=== PATIENT | female | born 1945 | race Caucasian/White ===

== ENCOUNTER 2019-11-15 12:37 | Outpatient (CLI) | payer MEDICARE, SELFPAY ==
[2019-11-15 13:17] LABS: Basophils # 0.1 10^3/uL (0.0-0.1); Basophils % 0.8 %; Eosinophils # 0.1 10^3/uL (0.0-0.8); Eosinophils % 1.7 %; Hematocrit 34.4 % (37.0-47.0); Hemoglobin 11.2 g/dL (11.5-15.3); Lymphocytes # 1.7 10^3/uL (0.8-4.8); Lymphocytes % 23.3 %; Mean Corpuscular HGB Conc 32.6 g/dL (30.0-36.0); Mean Corpuscular Hemoglobin 32.6 pg (28.0-34.0); Mean Platelet Volume 10.1 fL (7.4-10.4); Monocytes # 0.9 10^3/uL (0.2-0.9); Monocytes % 12.2 %; Neutrophils # 4.5 10^3/uL (1.8-7.7); Neutrophils % 61.6 %; Nucleated Red Blood Cells % 0 %; Platelet Count 352 10^3/cmm (130-400); Red Blood Count 3.44 10^6/uL (4.1-5.3); Red Cell Distribution Width 14.9 % (12.1-15.1); White Blood Count 7.2 10^3/uL (4.0-10.0)
[2019-11-15 13:21] LABS: Alanine Aminotransferase 14 U/L (0-33); Albumin Level 4.4 g/dL (3.5-5.2); Alkaline Phosphatase 69 IU/L (35-105); Anion Gap 13.8 (5-19); Aspartate Amino Transferase 20 U/L (0-32); Blood Urea Nitrogen 21 mg/dL (8-23); Calcium 9.2 mg/dL (8.5-10.5); Carbon Dioxide 24 mmol/L (22-29); Chloride 106 mmol/L (98-107); Globulin 2.8 g/dL (1.3-4.6); Glucose 104 mg/dL (65-115); Potassium 3.8 mmol/L (3.5-5.1); Sodium 140 mmol/L (136-145); Total Bilirubin 0.4 mg/dL (0.15-1.2); Total Protein 7.2 g/dL (6.6-8.7)
== END 2019-11-15 12:38 | disposition home or self-care (01) ==
LOC: ONCMED 12:41
PROVIDERS: Family Provider Family Medicine; PCP Family Medicine; Visit Provider Nurse Practitioner
DX: C50.311 Malignant neoplasm of lower-inner quadrant of right female breast (principal)
CPT/HCPCS: 80053; 85025

== ENCOUNTER 2019-11-16 08:48 | Outpatient (CLI) | payer MEDICARE, SELFPAY ==
--- NOTE | 2019-11-16 13:34 | ONC FU_ITS ---
Dr. Mcconnell follow up note Patient: Yessenia George Unit #: [id number]: 1945 Dicatated By: Luc Mcconnell M.D.Date of Visit:Nov 16, 2019 Onc Med Follow-up/Prog Note History of Present Illness: This is a 73 year old woman with multicentric, moderately differentiated invasive ductal carcinoma of the right breast, clinical stage IIA (T1c, N1, M0), ER/LA positive and HER-2/racheal negative. She presented with a palpable nodule and significant changes in the inner lower quadrant of the right breast. Her mammogram on 02/16/2014 showed the right breast asymmetry corresponding to 1.1 cm mass on ultrasound. The patient has been evaluated by Dr. Renteria in [place], [place]. Ultrasound-guided needle core biopsy on 03/25/2014 revealed an invasive moderately differentiated ductal carcinoma into breast nodule as well as involvement of the right axillary lymph node with metastatic disease. The prognostic markers revealed ER 98%, LA 11%, HER-2/racheal 0 by IHC, Ki 67 index 14%. She was first seen here on 04/11/2114. PET/CT on 04/16/2014 showed a low grade FDG uptake in the right breast, without distant metastatic disease. MRI of the brain was negative for metastatic disease. MUGA scan showed EF 59.5%, she had mild hypokinesia in the apical septal segment. She was recommended to get neoadjuvant chemotherapy. Systemic treatment with dose dense adriamycin and cyclophosphamide was delivered from 04/20/2014- 06/08/14. She then received paclitaxel 06/22/2014 -09/14/2014. On 10/10/14 she underwent a right lumpectomy and right axillary lymph node dissection. The surgical pathology showed 2.1 cm single focus great to/3 invasive ductal carcinoma with positive margins. All 4 lymph nodes harvested were involved with metastatic carcinoma. Thus, pathologic stage increased to IIIA, ypT2 ypN2 M0. HER-2/racheal by FISH negative. On 10/31/2014 she underwent a resection. No further tumor was identified. Arimidex 1 mg was initiated in October 2014. She completed 6040 cGy of radiation treatment on 01/13/2015. Mammogram on 03/25/2015 with a BI-RADS 3C, followup of right breast mammogram was recommended in 6 months. Follow-up mammogram in 03/08/2016 with BI-RADS 2b. She underwent colonoscopy in 01/02/2016 without evidence of malignancy. She has degenerative arthritis and fibromyalgia with chronic back pain. Her DEXA scan in November 2014 showed just borderline osteopenia. Her other medical illnesses include GERD and depression. She had previously smoked for 35 years, but she quit smoking more than 25 years ago. h/o lump on the right side of her neck . CT scan of the neck done on 04/04/2017 showed no abnormality and the palpable marker corresponds to normal-appearing right sternocleidomastoid muscle no lymphadenopathy and MRI neck at done on 01/02/2007 showed no solid or cystic mass and no lymphadenopathy and cervical spine degenerative changes seen in C4 - 5, 5 - 6, 6 - 7. Came for follow-up, denies any specific complaints, no fever or chills, no nausea or vomiting, no new bony pains, appetite is good, weight is stable, patient completed 5 years of hormonal therapy in mid October 2019. Medications: 8 Hour Pain Relief 1 Tablet (of 650 mg) Tablet, controlled release Oral PRN, Calcium Tablet Oral daily, PROzac 1 (40 mg) Capsule Oral daily, Ranitidine HCl 1 (150 mg) Capsule Oral b.i.d. Allergies: Iodine dye Review of Systems: Constitutional - Her energy level is fair. Appetite is good and weight is stable. No fever, chills. She has hot flashes, ENMT - Positive for sinus drainage. No mouth sores. No sore throat or difficulty swallowing, Hematologic/Lymphatic - No abnormal bruising or bleeding, Respiratory - She has shortness of breath with activity. She has a dry cough. No pleuritic pain, Cardiovascular - No angina pain, Gastrointestinal - No nausea or vomiting. No heartburn or acid reflux. No diarrhea or constipation. No blood in the stool or black stools, Genitourinary (F) - No dysuria or hematuria. No urinary frequency. No urgency or incontinence, Musculoskeletal - She has generalized pain, Neurologic - She has headaches. No dizziness. She has numbness and tingling in her toes, Psychiatric - No anxiety or depression. She has insomnia. Vital Signs: Performed on Nov 16, 2019 09:28 Height - 61.00 in Weight - 140.2 lbs (HIGH) BSA - 1.62 sq.m BMI - 26.49 Temperature - 97.2 F (LOW) Pulse - 71 /min Respiration - 18 /min BP - 121/64 mm(hg) O2 Sat - 99 % Pain - 7 Performance Status: 0 - Fully active, able to carry on all predisease activities without restrictions. (ECOG) Physical Examination: Respiratory - Lungs are clear to auscultation without rhonchi or wheezing, Cardiovascular - Regular rate and rhythm of heart, Extremities - no edema. Lab/Imaging: Test performed on Jun 10, 2019 10:20 Sodium 143 mmol/L Potassium 4.0 mmol/L Chloride 107 mmol/L CO2 24 mmol/L Anion Gap 16.0 BUN 20 mg/dL Creatinine 1.0 mg/dL Cr Clearance (Est) 51.1100 mL/min Glucose 110 mg/dl Calcium 9.0 mg/dL Protein, Total 6.9 g/dL Albumin 4.2 g/dL Globulin 2.7 gm/dL Bilirubin, Total 0.4 mg/dL ALT (SGPT) 13 U/L AST (SGOT) 19 U/L Alkaline Phosphatase 66 U/L WBC 7.7 /cmm RBC 3.69 10 6/cmm HGB 12.3 g/dl HCT 36.7 % MCV 99.4 /cmm MCH 33.4 pg MCHC 33.6 g/dl RDW 14.9 % Platelet Count 333 10 3/cmm MPV 7.9 fl Neutrophils 5.4 10 3/cmm Lymphocytes 1.2 10 3/cmm Monocytes 0.9 10 3/cmm Eosinophils 0.1 10 3/cmm Basophils 0.1 10 3/cmm Neutrophil % 70.6 % Lymphocyte % 15.4 % Monocyte % 11.4 % Eosinophil % 1.9 % Basophils % 0.7 % CA 27.29 24.35 U/mL Impression: 1. Patient with grade 2 invasive ductal carcinoma of the right breast, stage IIIA (ypT2, ypN2, M0), ER/LA positive and HER-2/racheal nonamplified. 2. She was given neoadjuvant chemotherapy with 4 cycles of Adriamycin/cyclophosphamide followed by 12 doses of weekly paclitaxel, completed in September 2014. 3. She underwent right breast lumpectomy and axillary lymph node dissection on 10/10/2014. 4. She was given radiation to the right breast, completed on 01/13/2015 to a total dose of 6040 cGy. 5. Adjuvant hormonal therapy with anastrozole began in October 2014.and completed 5 years, in October 2019 Her other medical illnesses include: 6. Degenerative arthritis/degenerative disease of the spine. 7. Fibromyalgia. 8. GERD. 9. Depression. h/o lump in the right side of her neck. Normal CT scan of the neck done on 11/04/2016 and confirmed normal findings with MRI neck done on 01/02/2017 Mammogram done on 05/11/2018 showed BI-RADS 2-benign Follow-up mammogram done on 06/10/2019 showed BI-RADS 2-benign Plan: Discussed with patient regarding her labs white blood count 7.2 hemoglobin 11.2 crit 34.4 platelets 352,000 CMP within normal limits and her mammogram done in June 2019 was unremarkable. Clinically, patient doing well with no signs symptoms suggestive of recurrence of disease. Patient has completed 5 years of adjuvant hormonal therapy with Arimidex in mid October 2019. Now consider yearly follow-up and patient return to clinic in one year with CBC CMP and follow-up mammogram which is scheduled in June 2020. Signed By: Luc Mcconnell M.D. <<Signature on File>>
== END 2019-11-16 08:49 | disposition home or self-care (01) ==
LOC: ONCMED 08:50
PROVIDERS: Family Provider Family Medicine; PCP Family Medicine; Visit Provider Internal Medicine Hematology & Oncology
DX: Z08 Encounter for follow-up examination after completed treatment for malignant neoplasm (principal); Z85.3 Personal history of malignant neoplasm of breast; M19.90 Unspecified osteoarthritis, unspecified site; M79.7 Fibromyalgia; G89.29 Other chronic pain; K21.9 Gastro-esophageal reflux disease without esophagitis; F32.9 Major depressive disorder, single episode, unspecified; Z79.899 Other long term (current) drug therapy; Z87.891 Personal history of nicotine dependence; Z92.3 Personal history of irradiation; Z92.21 Personal history of antineoplastic chemotherapy; Z92.23 Personal history of estrogen therapy
CPT/HCPCS: 99214

== ENCOUNTER 2020-06-13 09:55 | Outpatient (CLI) | payer MEDICARE, SELFPAY ==
--- NOTE | 2020-06-13 10:02 | MM_ITS ---
WS: [id number] DIAGNOSTIC BILATERAL DIGITAL MAMMOGRAM WITH CAD HISTORY: HX OF BREAST CA COMPARISON: 06/10/2019, 05/11/2018 and 11/06/2017 TECHNIQUE: Bilateral craniocaudad, mediolateral oblique, and mediolateral views are submitted. Comput er aided detection utilized. Breast composition: There are scattered areas of fibroglandular density. Postsurgical changes with vo lume loss and scarring in the RIGHT breast. No recurrent mass near the surgical clips. There are dotty gn calcifications in each breast. MM/[place] [id number] IMPRESSION: BI-RADS: 2-Benign FOLLOW UP: 1 Year Follow-up
== END 2020-06-13 09:56 | disposition home or self-care (01) ==
LOC: RADSHAW 10:00 → ONCMED 10:03
PROVIDERS: PCP Family Medicine; Visit Provider Internal Medicine Hematology & Oncology
DX: Z85.3 Personal history of malignant neoplasm of breast (principal)
CPT/HCPCS: 77066

== ENCOUNTER → 2020-07-14 12:18 | Outpatient (BNVA) | payer MEDICARE, SELFPAY | PROVIDERS: PCP Family Medicine; Visit Provider Internal Medicine | DX: M25.50 Pain in unspecified joint (principal); R76.8 Other specified abnormal immunological findings in serum; D86.9 Sarcoidosis, unspecified; Z51.81 Encounter for therapeutic drug level monitoring; C50.919 Malignant neoplasm of unspecified site of unspecified female breast; D64.9 Anemia, unspecified; Z87.891 Personal history of nicotine dependence | CPT/HCPCS: 99203; 99204 ==

== ENCOUNTER 2020-07-14 13:17 | Outpatient (CLI) | payer MEDICARE, SELFPAY ==
--- NOTE | 2020-07-14 13:24 | XR_ITS ---
WS: [id number] Left hand, AP and lateral views, 07/14/2020 Clinical Data: hand pain Comparison: None. Findings: No fractures are seen. There is osteoarthritic change of the left second through fifth MP joints. The re is osteoarthritic change at the base of the left first metacarpal. There is calcification of the t riradiate cartilage. The patient's ring obscures minimal detail over the left fourth proximal phalanx . The soft tissues show minimal calcification on the radial base of the left third proximal phalanx.. XR/XR hand LT 2V [id number] Impression: 1. Osteoarthritis of the left second through fifth MTP joints and base of the l eft first metacarpal. 2. Calcification of the triradiate cartilage.
--- NOTE | 2020-07-14 13:24 | XR_ITS ---
WS: [id number] Right hand, AP and lateral views, 07/14/2020 Clinical Data: hand pain Comparison: None. Findings: No fractures or dislocations are seen. The soft tissues are unremarkable. Osteoarthritic changes seen at the right first through third MTP joints, right first IP joint and right second and t hird DIP joints. There is osteoarthritis at the base of the right first metacarpal and at the scaphoi d and carpal articulations. There is calcification of the triradiate cartilage. The patient's ring ob scured minimal detail over the midportion of the right fourth proximal phalanx. XR/XR hand RT 2V [id number] Impression: 1. Osteoarthritic change at the base of the right first metacarpal and of the f irst, second and third phalanges. 2. Calcification of the triradiate cartilage
--- NOTE | 2020-07-14 13:24 | XR_ITS ---
WS: [id number] Lateral views of cervical spine in the flexion, extension and neutral positions. 07/14/2020 Clinical Data: neck pain ? stenosis Comparison: None. Findings: There is a subluxation of 0.3 cm at C3 on C4. The subluxation increases to 0.5 cm on flexion and does not change on extension. No limitation of motion is seen on flexion or extension. There is degenerat michelle disc disease at all levels from C4-C5 through C6-C7. Anterior osteoarthritic spurring is seen ant eriorly from C4 through C6. No prevertebral soft tissue swelling is present. No compression fracture s are seen. XR/XR cervical spine fl/ex [id number] Impression: 1. Subluxation of 0.3 cm of C3 on C4 in the neutral position which increases to 0.5 cm on flexion. 2. Negative for limitation of motion on flexion or extension. 3. Degenerative disc disease and osteoarthritis from C3-C4 through C6-C7.
--- NOTE | 2020-07-14 13:24 | XR_ITS ---
WS: [id number] Lumbar spine, 3 views, 07/14/2020 Clinical Data: back pain Comparison: None. Findings: No compression fractures are seen. There is a 0.9 cm subluxation of L5 on S1. Degenerative disc narro wing is present at L1-L2 through L5-S1. There is a slight levoscoliosis. Osteoporosis is present. The transverse processes, SI joints and pub ic symphysis are unremarkable. There is osteoarthritic spurring especially of L2, L4 and L5. XR/XR lumbar spine 2-3V* [id number] Impression: 1. Osteoporosis and osteoarthritis. 2. Multilevel degenerative disc disease. 3. Subluxation of L5 on S1 of 0.9 cm.
[2020-07-14 14:24] LABS: Add Urine Microscopic? NO
[2020-07-14 14:37] LABS: Creatine Phosphokinase 85 U/L (26-192); Ferritin 331 ng/mL (15-150)
[2020-07-14 14:43] LABS: Complement C3 93 mg/dL (90-180)
[2020-07-14 14:50] LABS: Bilirubin Urine Neg (Negative); Blood Urine Neg (Negative); Glucose Urine UA Norm (Normal); Ketones Urine Negative (Negative); Leukocyte Esterase Urine Negative (Negative); Nitrate Urine Negative (Negative); Protein Urine Neg (Negative); Specific Gravity, Urine 1.015 (1.005-1.030); Urine Appearance Clear (CLEAR); Urine Color Yellow (Yellow); Urobilinogen Urine Neg (Negative); pH Urine 5 (5-7)
[2020-07-14 15:36] LABS: Erythrocyte Sedimentation Rate 10 mm/hr (0-15)
[2020-07-14 15:45] LABS: Hepatitis B Core AB, Total Non-Reactive (Nonreactive); Hepatitis B Surface Antigen Non-Reactive (Nonreactive); Hepatitis C Virus Antibody Non-Reactive (Nonreactive)
[2020-07-16 20:11] LABS: HLA-B27 POSITIVE (NEGATIVE)
[2020-07-17 13:28] LABS: COMPLEMENT COMPONENT C3C 101 mg/dL (83-193); COMPLEMENT COMPONENT C4C 17 mg/dL (15-57)
[2020-07-17 14:23] LABS: CENTROMERE B ANTIBODY <1.0 NEG AI (<1.0 NEG); JO-1 ANTIBODY <1.0 NEG AI (<1.0 NEG); RNP ANTIBODY <1.0 NEG AI (<1.0 NEG); SCL-70 ANTIBODY <1.0 NEG AI (<1.0 NEG); SJOGREN'S ANTIBODY (SS-A) <1.0 NEG AI (<1.0 NEG); SM ANTIBODY <1.0 NEG AI (<1.0 NEG)
[2020-07-17 15:58] LABS: COMPLEMENT, TOTAL (CH50) 55 U/mL (31-60); THYROID PEROXIDASE ANTIBODIES <1 IU/mL (<9)
[2020-07-19 05:32] LABS: DNA AB (DS) CRITHIDIA,IFA NEGATIVE (NEGATIVE)
[2020-07-19 10:32] LABS: ANA PATTERN Nuclear, Homogeneous; ANA SCREEN, IFA POSITIVE (NEGATIVE); ANA TITER 1:40 titer
== END 2020-07-14 13:18 | disposition home or self-care (01) ==
LOC: RAD 13:22
PROVIDERS: PCP Family Medicine; Visit Provider Internal Medicine
DX: R76.8 Other specified abnormal immunological findings in serum (principal); D86.9 Sarcoidosis, unspecified; M50.31 Other cervical disc degeneration, high cervical region; M47.812 Spondylosis without myelopathy or radiculopathy, cervical region; M81.0 Age-related osteoporosis without current pathological fracture; Z51.81 Encounter for therapeutic drug level monitoring; S33.39XA Dislocation of other parts of lumbar spine and pelvis, initial encounter; M19.042 Primary osteoarthritis, left hand; M19.041 Primary osteoarthritis, right hand; X58.XXXA Exposure to other specified factors, initial encounter
CPT/HCPCS: 36415; 72040; 72100; 73120; 81003; 82550; 82728; 85651; 86160; 86431; 86704; 86803; 86812; 87340

== ENCOUNTER → 2020-08-01 13:22 | Outpatient (BNVA) | payer MEDICARE, SELFPAY | PROVIDERS: PCP Family Medicine; Referring Provider Internal Medicine; Visit Provider Anesthesiology Pain Medicine | DX: M48.061 Spinal stenosis, lumbar region without neurogenic claudication (principal); M51.36 Other intervertebral disc degeneration, lumbar region; M47.816 Spondylosis without myelopathy or radiculopathy, lumbar region; M50.90 Cervical disc disorder, unspecified, unspecified cervical region; M54.9 Dorsalgia, unspecified; M05.9 Rheumatoid arthritis with rheumatoid factor, unspecified; R76.8 Other specified abnormal immunological findings in serum; M41.9 Scoliosis, unspecified; Z98.890 Other specified postprocedural states; Z15.89 Genetic susceptibility to other disease | CPT/HCPCS: 99205 ==

== ENCOUNTER → 2020-08-11 12:25 | Outpatient (BNVA) | payer MEDICARE, SELFPAY | PROVIDERS: PCP Family Medicine; Visit Provider Anesthesiology Pain Medicine | DX: M47.816 Spondylosis without myelopathy or radiculopathy, lumbar region (principal); M54.9 Dorsalgia, unspecified | CPT/HCPCS: 64493; 64494; 64495; J3490 ==

== ENCOUNTER 2020-08-15 13:28 | Outpatient (CLI) | payer MEDICARE, SELFPAY ==
--- NOTE | 2020-08-15 13:53 | MR_ITS ---
WS: [id number] MRI CERVICAL SPINE NONCONTRAST TECHNIQUE: Sagittal T1, T2 and STIR imaging. Axial T2, gradient, and fiesta imaging. CLINICAL INFORMATION: M54.12 Radiculopathy, cervical region COMPARISON: None. FINDINGS: Straightening of the normal cervical lordosis. Slight anterolisthesis C3 on C4. Disc osteophyte compl exes worse at C4-C5 and C5-C6. Cord signal is normal. C2-C3: Mild left and no significant right foraminal narrowing. Mild facet arthropathy. Spinal canal i s patent. C3-C4: Slight anterolisthesis. Mild disc bulging with osteophytic ridging. Mild to moderate left and no significant right foraminal narrowing. Moderate left facet arthropathy. Spinal canal is patent. C4-C5: Disc osteophyte complex with mild central canal stenosis. Moderate to severe bilateral bony fo raminal narrowing. Mild facet arthropathy. Mild central canal stenosis. C5-C6: Disc osteophyte complex with mild to moderate central canal stenosis. Severe right and moderat e left bony foraminal narrowing with osteophytic ridging. Moderate facet arthropathy. C6-C7: Disc osteophyte complex with mild left greater than right foraminal narrowing. Spinal canal is patent. C7-T1: Mild left and no significant right foraminal narrowing. Spinal canal is patent Visualized brain stem structures: Normal. Prevertebral soft tissues: Normal. MR/MR cervical spin wo con* [id number] IMPRESSION: 1. Straightening of the normal cervical lordosis. Cord signal is normal. 2. Mild to moderate central canal stenosis C4-C5 and C5-C6 with disc osteophyt e complexes and slight indentation on the cervical cord. 3. Multilevel moderate to severe bony foraminal narrowing worse at bilateral C 4-5 and right C5-C6. 4. Slight anterolisthesis C3 on C4.
--- NOTE | 2020-08-15 13:53 | MR_ITS ---
WS: [id number] MRI LUMBAR SPINE NONCONTRAST TECHNIQUE: Sagittal T1, T2 and STIR imaging. Axial T1 and T2 imaging. CLINICAL INFORMATION: M54.16 Radiculopathy, lumbar region COMPARISON: None. FINDINGS: Mild lumbar curve. No acute compression. Slight anterolisthesis L5 on S1. Disc space narrowing worse at L4-5 and L5-S1. Endplate degenerative changes L4-5. L1-L2: Mild disc bulging with narrowing of the subarticular recess bilaterally. Mild facet arthropath y. Moderate left and mild right foraminal narrowing. Mild facet arthropathy. L2-L3: Mild disc bulging with mild to moderate central canal stenosis. Impingement subarticular reces s bilaterally. Moderate facet arthropathy with ligamentum flavum hypertrophy. Mild left greater than right foraminal narrowing. L3-L4: Mild disc bulging with mild central canal stenosis. Impingement traversing right L4 nerve root . Moderate facet arthropathy. Mild bilateral foraminal narrowing. L4-L5: Disc osteophyte complex with impingement on the traversing L5 nerve roots bilaterally. Mild ce ntral canal stenosis. Moderate facet arthropathy. Moderate to severe right and moderate left foramina l narrowing. L5-S1: Grade 1 anterolisthesis L5 on S1. Severe left L5-S1 foraminal narrowing. Impingement on the ex iting left L5 nerve root. Mild central canal stenosis. Moderate facet arthropathy. Mild to moderate r ight foraminal narrowing. Partially visualized large right renal cyst measuring 6.3 CM. Peripelvic renal cysts MR/MR lumbar spine wo con* [id number] IMPRESSION: 1. Grade 1 anterolisthesis L5 on S1 with mild central canal stenosis. Severe l eft foraminal narrowing at this level impinges the exiting left L5 nerve root. 2. Mild to moderate central canal stenosis L1-2, L2-3, L3-4 and L4-5. 3. Impingement on the subarticular recess at multiple levels worse at right L3 -4 and bilateral L4-5. 4. Moderate facet arthropathy L3-L5. 5. Partially visualized large right renal cyst measuring 6.2 CM.
== END 2020-08-15 13:29 | disposition home or self-care (01) ==
PROVIDERS: PCP Family Medicine; Visit Provider Anesthesiology Pain Medicine
DX: M54.16 Radiculopathy, lumbar region (principal); M54.12 Radiculopathy, cervical region; N28.1 Cyst of kidney, acquired; M47.816 Spondylosis without myelopathy or radiculopathy, lumbar region; M48.061 Spinal stenosis, lumbar region without neurogenic claudication; M48.02 Spinal stenosis, cervical region
CPT/HCPCS: 72141; 72148

== ENCOUNTER → 2020-08-21 10:30 | Outpatient (BNVA) | payer MEDICARE, SELFPAY | PROVIDERS: PCP Family Medicine; Visit Provider Anesthesiology Pain Medicine | DX: M51.36 Other intervertebral disc degeneration, lumbar region (principal); M47.816 Spondylosis without myelopathy or radiculopathy, lumbar region; M48.061 Spinal stenosis, lumbar region without neurogenic claudication; M54.9 Dorsalgia, unspecified; M50.90 Cervical disc disorder, unspecified, unspecified cervical region; M05.9 Rheumatoid arthritis with rheumatoid factor, unspecified; R76.8 Other specified abnormal immunological findings in serum; M41.9 Scoliosis, unspecified; Z15.89 Genetic susceptibility to other disease; Z98.890 Other specified postprocedural states | CPT/HCPCS: 99214 ==

== ENCOUNTER → 2020-09-04 13:10 | Outpatient (BNVA) | payer MEDICARE, SELFPAY | PROVIDERS: PCP Family Medicine; Visit Provider Anesthesiology Pain Medicine | DX: M47.816 Spondylosis without myelopathy or radiculopathy, lumbar region (principal); M54.9 Dorsalgia, unspecified | CPT/HCPCS: 64493; 64494; 64495; J3490 ==

== ENCOUNTER → 2020-09-18 12:40 | Outpatient (BNVA) | payer MEDICARE, SELFPAY | PROVIDERS: PCP Family Medicine; Visit Provider Anesthesiology Pain Medicine | DX: M47.816 Spondylosis without myelopathy or radiculopathy, lumbar region (principal); M48.061 Spinal stenosis, lumbar region without neurogenic claudication; M51.36 Other intervertebral disc degeneration, lumbar region; M54.9 Dorsalgia, unspecified; M50.90 Cervical disc disorder, unspecified, unspecified cervical region; M25.50 Pain in unspecified joint; M41.9 Scoliosis, unspecified; M05.9 Rheumatoid arthritis with rheumatoid factor, unspecified; R76.8 Other specified abnormal immunological findings in serum; Z15.89 Genetic susceptibility to other disease; Z98.890 Other specified postprocedural states | CPT/HCPCS: 99213 ==

== ENCOUNTER → 2020-09-25 13:07 | Outpatient (BNVA) | payer MEDICARE, SELFPAY | PROVIDERS: PCP Family Medicine; Visit Provider Anesthesiology Pain Medicine | DX: M47.816 Spondylosis without myelopathy or radiculopathy, lumbar region (principal); M54.9 Dorsalgia, unspecified | CPT/HCPCS: 64493; 64494; 64495; J3490 ==

== ENCOUNTER → 2020-10-09 12:36 | Outpatient (BNVA) | payer MEDICARE, SELFPAY | PROVIDERS: PCP Family Medicine; Visit Provider Anesthesiology Pain Medicine | DX: M48.061 Spinal stenosis, lumbar region without neurogenic claudication (principal); M47.816 Spondylosis without myelopathy or radiculopathy, lumbar region; M51.36 Other intervertebral disc degeneration, lumbar region; M54.9 Dorsalgia, unspecified; M50.90 Cervical disc disorder, unspecified, unspecified cervical region; R76.8 Other specified abnormal immunological findings in serum; M05.9 Rheumatoid arthritis with rheumatoid factor, unspecified; M25.50 Pain in unspecified joint; M41.9 Scoliosis, unspecified; Z98.890 Other specified postprocedural states; Z15.89 Genetic susceptibility to other disease | CPT/HCPCS: 99213; 99214 ==

== ENCOUNTER → 2020-11-03 09:53 | Outpatient (BNVA) | payer MEDICARE, SELFPAY | PROVIDERS: PCP Family Medicine; Visit Provider Anesthesiology Pain Medicine | DX: M47.816 Spondylosis without myelopathy or radiculopathy, lumbar region (principal); M54.9 Dorsalgia, unspecified | CPT/HCPCS: 64635; 64636; J1030 ==

== ENCOUNTER → 2021-08-01 09:17 | Outpatient (BNVA) | payer MEDICARE, SELFPAY | PROVIDERS: PCP Family Medicine; Visit Provider Anesthesiology Pain Medicine | DX: M48.061 Spinal stenosis, lumbar region without neurogenic claudication (principal); M47.816 Spondylosis without myelopathy or radiculopathy, lumbar region; M51.36 Other intervertebral disc degeneration, lumbar region; M50.90 Cervical disc disorder, unspecified, unspecified cervical region; R76.8 Other specified abnormal immunological findings in serum; M05.9 Rheumatoid arthritis with rheumatoid factor, unspecified; M25.50 Pain in unspecified joint; M41.9 Scoliosis, unspecified; Z15.89 Genetic susceptibility to other disease; M79.604 Pain in right leg; M79.605 Pain in left leg; G62.0 Drug-induced polyneuropathy; Z98.890 Other specified postprocedural states; Z87.891 Personal history of nicotine dependence | CPT/HCPCS: 99214 ==

== ENCOUNTER 2021-08-10 08:48 | Outpatient (CLI) | payer MEDICARE, SELFPAY ==
--- NOTE | 2021-08-10 08:53 | MM_ITS ---
WS: [id number] Bilateral diagnostic digital mammogram, 08/10/2021 Clinical Data: HX OF BREAST CA Comparison: 06/13/2020, 06/10/2019, 05/11/2018, 11/06/2017, 05/09/2017, 07/01/2016, 03/08/2016, 09/05/2015, 03/01/20 14, 02/17/2014, 08/08/2011, 07/10/2009, 11/16/2004. Findings: The right breast shows skin thickening and clips in the medial aspect from therapy. No recurrent carc inoma is seen. The breast parenchymal pattern shows heterogeneous density. Left breast shows heterogeneous density with benign calcifications. No left breast secondary signs of carcinoma are noted. There are no clustered calcifications or spiculated masses in the left breast. MM/[place] [id number] Impression: 1. No change in right breast. 2. Negative left breast. 3. Recommend annual mammograms. BIRADS: 2-Benign FOLLOW UP: 1 Year Follow-up The CAD shellfish checker was used.
== END 2021-08-10 08:49 | disposition home or self-care (01) ==
LOC: RADSHAW 08:50
PROVIDERS: PCP Family Medicine; Visit Provider Family Medicine
DX: Z85.3 Personal history of malignant neoplasm of breast (principal)
CPT/HCPCS: 77066

== ENCOUNTER → 2021-08-16 14:14 | Outpatient (BNVA) | payer MEDICARE, SELFPAY | PROVIDERS: PCP Family Medicine; Visit Provider Anesthesiology Pain Medicine | DX: M47.816 Spondylosis without myelopathy or radiculopathy, lumbar region (principal); M54.16 Radiculopathy, lumbar region; M25.561 Pain in right knee | CPT/HCPCS: 20610; 64635; 64636; J1030; J3490 ==

== ENCOUNTER 2022-09-11 09:30 | Outpatient (CLI) | payer MEDICARE, SELFPAY ==
--- NOTE | 2022-09-11 09:54 | MM_ITS ---
WS: [id number] DIAGNOSTIC BILATERAL DIGITAL BREAST TOMOSYNTHESIS MAMMOGRAPHY WITH CAD HISTORY: HX OF BREAST CA COMPARISON: 08/10/2021, 06/13/2020 and 06/10/2019 TECHNIQUE: Bilateral craniocaudad, mediolateral oblique, and mediolateral views are submitted with to mosynthesis and SM. Computer aided detection utilized. Breast composition: There are scattered areas of fibroglandular density. Volume loss and post lumpect winnie changes in the posterior medial RIGHT breast. Numerous surgical clips. Dystrophic calcifications and distortion are stable. There is moderate skin thickening and trabecular thickening throughout the RIGHT breast. No interval change. Benign calcifications LEFT breast. MM/[place] [id number] IMPRESSION: BI-RADS: 2-Benign FOLLOW UP: 1 Year Follow-up
== END 2022-09-11 09:31 | disposition home or self-care (01) ==
PROVIDERS: PCP Family Medicine; Visit Provider Internal Medicine Medical Oncology
DX: Z85.3 Personal history of malignant neoplasm of breast (principal)
CPT/HCPCS: 77062; G0279

== ENCOUNTER 2022-11-27 07:35 | Oncology outpatient (recurring) (ONCR) | payer MEDICARE, SELFPAY | END 2022-12-03 23:59 | disposition home or self-care (01) | LOC: ONCMED 07:36 | PROVIDERS: PCP Family Medicine; Visit Provider Internal Medicine Medical Oncology | DX: C50.811 Malignant neoplasm of overlapping sites of right female breast (principal); Z17.0 Estrogen receptor positive status [ER+]; Z90.11 Acquired absence of right breast and nipple; C77.3 Secondary and unspecified malignant neoplasm of axilla and upper limb lymph nodes; Z79.811 Long term (current) use of aromatase inhibitors; Z92.21 Personal history of antineoplastic chemotherapy; Z92.25 Personal history of immunosuppression therapy; Z87.891 Personal history of nicotine dependence | CPT/HCPCS: 99214 ==

== ENCOUNTER 2022-12-07 09:00 | Outpatient (CLI) | payer MEDICARE, SELFPAY ==
--- NOTE | 2022-12-07 09:00 | PETR_ITS ---
PROCEDURE INFORMATION: Exam: PET/CT Skull Base to Mid-thigh Exam date and time: 12/07/2022 9:46 AM Age: 77 years old Clinical indication: Right breast cancer; Initial oncological staging assessment; New diagnosis - staging. LABS AND CLINICAL REPORTS: Glucose: 113 mg/dl Treatment strategy for malignancy (PET staging): Initial Staging (PI) TECHNIQUE: Imaging protocol: Following at least four-hour fasting and following the injection of F-18-FDG, low dose CT images were obtained. Then, PET images were obtained. Attenuation corrected images were constructed using the CT scan. Fused images of PET and CT were reviewed. The standardized uptake values (SUV) reported below are maximum values within a region of interest, expressed in gm/ml. Exam includes orbital meatal line to mid-thigh. Radiopharmaceutical: 13.33 mCi F-18 FDG (Fluorodeoxyglucose), IV. Time of imaging post radiopharmaceutical administration: 48.7 minutes. Injection site: Left antecubital vein. COMPARISON: 1. Mammogram tomosynthesis bilateral diagnostic 09/11/2022. 2. PET/CT 04/16/2014 from [facility] in [place]. The report is available, but the images are not. FINDINGS: Brain: Visualized brain has normal physiologic uptake. Pharynx: No abnormal uptake. Larynx: No abnormal uptake. Lungs, pleura and trachea: No abnormal uptake. Heart: Normal physiologic uptake. Mediastinal space: No abnormal uptake. Diaphragm: There is a small hiatal hernia. Liver: No abnormal uptake. Gallbladder and bile ducts: No abnormal uptake. Pancreas: No abnormal uptake. Spleen: No abnormal uptake. Adrenal glands: No abnormal uptake. Kidneys and ureters: A water density cyst at the lower pole of the right kidney is 7.1 x 6.5 x 6.1 cm. Small portions of its wall are calcified. There are multiple water density parapelvic cysts at the left kidney. The kidneys and ureters are otherwise unremarkable. Stomach and bowel: No abnormal uptake. Vasculature: There is mild calcific atherosclerosis of the abdominal aorta and iliac arteries. There is no aneurysm. Lymph nodes: No abnormal uptake. No lymphadenopathy in the head, neck, chest, abdomen, pelvis or extremities. Bones/joints: There are numerous FDG avid mixed sclerotic and lytic osseous lesions. For example, an osseous lesion the posteromedial right ilium is 2.1 x 1.0 x 2.5 cm (series 4, image 110). Its SUV max of 5.9 indicates a metabolically active metastasis. Many of osseous lesions are not FDG avid and consistent with successfully treated metastases. For example, a densely sclerotic 1.2 cm lesion at the posterior aspect of the L3 vertebral body has an SUV max of only 2.0. Multiple mildly FDG avid lesions in the L5 vertebral body, bilateral pelvis and bilateral proximal femora are also suspicious for metastases. They have SUVs max ranging between 3.5 and 3.7. Soft tissues: Post lumpectomy changes in the deep medial right breast (series 3, image 48). A stellate scar is 1.6 x 1.6 x 1.6 cm (series 3, image 49). It contains multiple surgical clips. It is not FDG avid. Its SUV max is only 1.4. It causes mild retraction of the overlying skin. Mild thickening of the overlying skin is consistent with radiation effect. It is not FDG avid. In the left infraspinatus muscle, SUV max is 5.4 (image 4:30). In the right pectoralis major muscle, SUV max is 3.6 (image 4:30). They are considered physiologic/benign due the effort of holding the arms above the head. Bilateral paraspinous transverse muscle uptake at the C2 level has an SUV of 4.9. It is benign/physiologic. PET/PET [facility] [place]IAL [id number] IMPRESSION: 1. There are numerous FDG avid mixed sclerotic and lytic osseous lesions. For example, an osseous lesion the posteromedial right ilium is 2.1 x 1.0 x 2.5 cm (series 4, image 110). Its SUV max of 5.9 indicates a metabolically active metastasis. Some of osseous lesions are not FDG avid and consistent with successfully treated metastases. Multiple mildly FDG avid lesions in the L5 vertebral body, bilateral pelvis and bilateral proximal femora are also suspicious for metastases. They have SUVs max ranging between 3.5 and 3.7. 2. Postsurgical and post-radiation changes in the right breast. There is no FDG avidity to suggest local tumor recurrence. 3. No FDG avid lymph nodes.
== END 2022-12-07 09:01 | disposition home or self-care (01) ==
LOC: RAD 12-09 06:15
PROVIDERS: PCP Family Medicine; Visit Provider Internal Medicine Hematology & Oncology
DX: C50.911 Malignant neoplasm of unspecified site of right female breast (principal)
CPT/HCPCS: 78815; A9552

== ENCOUNTER 2023-01-28 09:00 | Oncology outpatient (recurring) (ONCR) | payer MEDICARE, SELFPAY ==
[2023-01-16 08:17] VITALS: BP 141/77; PULSE 74; RESP 18; TEMP 37.1; O2SAT 98
[2023-01-16 08:27] LABS: Basophils % 0.3 %; Hematocrit 27.9 % (37.0-47.0); Hemoglobin 9.2 g/dL (11.5-15.3); Lymphocytes # 0.8 10^3/uL (0.8-4.8); Lymphocytes % 19.7 %; Mean Corpuscular Hemoglobin 32.1 pg (28.0-34.0); Mean Corpuscular Volume 97.2 fl (81-99); Mean Platelet Volume 9.6 fL (7.4-10.4); Monocytes # 0.2 10^3/uL (0.2-0.9); Monocytes % 4.6 %; Neutrophils # 2.91 10^3/uL (1.8-7.7); Neutrophils % 74.6 %; Nucleated Red Blood Cells % 0.5 %; Platelet Count 276 10^3/cmm (130-400); Red Blood Count 2.87 10^6/uL (4.1-5.3); Red Cell Distribution Width 19.9 % (12.1-15.1); White Blood Count 3.9 10^3/uL (4.0-10.0)
[2023-01-16 08:51] LABS: Alanine Aminotransferase 25 U/L (0-33); Alkaline Phosphatase 114 U/L (35-105); Aspartate Amino Transferase 35 U/L (0-32); Blood Urea Nitrogen 21 mg/dL (8-23); Calcium 8.2 mg/dL (8.5-10.5); Carbon Dioxide 21 mmol/L (22-29); Chloride 108 mmol/L (98-107); Globulin 2.7 g/dL (1.3-4.6); Glucose 104 mg/dL (65-115); Osmolality Calculated 297 mOsm/kg (285-295); Sodium 142 mmol/L (136-145); Total Bilirubin 0.5 mg/dL (0.15-1.2); Total Protein 6.7 g/dL (6.6-8.7)
[2023-01-16 08:53] LABS: Anion Gap 17.1 (5-19); Potassium 4.1 mmol/L (3.5-5.1)
[2023-01-22 09:35] VITALS: BP 136/75; PULSE 74; RESP 18; TEMP 37.1; O2SAT 99
[2023-01-22 09:50] LABS: Basophils % 1.2 %; Eosinophils % 2.4 %; Hematocrit 26.8 % (37.0-47.0); Hemoglobin 8.7 g/dL (11.5-15.3); Lymphocytes # 0.9 10^3/uL (0.8-4.8); Lymphocytes % 52.4 %; Mean Corpuscular HGB Conc 32.5 g/dL (30.0-36.0); Mean Corpuscular Hemoglobin 31.5 pg (28.0-34.0); Mean Corpuscular Volume 97.1 fl (81-99); Mean Platelet Volume 9.5 fL (7.4-10.4); Monocytes # 0.2 10^3/uL (0.2-0.9); Neutrophils % 32.6 %; Nucleated Red Blood Cells % 1.2 %; Platelet Count 268 10^3/cmm (130-400); Red Blood Count 2.76 10^6/uL (4.1-5.3); Red Cell Distribution Width 19.5 % (12.1-15.1); White Blood Count 1.7 10^3/uL (4.0-10.0)
[2023-01-22 09:54] LABS: Neutrophils # 0.54 10^3/uL (1.8-7.7)
[2023-01-22 10:28] LABS: Alanine Aminotransferase 24 U/L (0-33); Albumin Level 3.7 g/dL (3.5-5.2); Alkaline Phosphatase 116 U/L (35-105); Blood Urea Nitrogen 19 mg/dL (8-23); Calcium 8.8 mg/dL (8.5-10.5); Carbon Dioxide 21 mmol/L (22-29); Chloride 108 mmol/L (98-107); Globulin 2.5 g/dL (1.3-4.6); Glucose 86 mg/dL (65-115); Osmolality Calculated 292 mOsm/kg (285-295); Sodium 140 mmol/L (136-145); Total Bilirubin 0.3 mg/dL (0.15-1.2); Total Protein 6.2 g/dL (6.6-8.7)
[2023-01-22 10:29] LABS: Anion Gap 15.2 (5-19); Aspartate Amino Transferase 29 U/L (0-32); Potassium 4.2 mmol/L (3.5-5.1)
--- NOTE | 2023-01-22 11:51 | PC.PHAR ---
PER LESLYE, PATIENT NEEDS GROWTH FACTORS BUT INSURANCE IS PENDING. LESLYE STATES PATIENT CAN NOT WAIT SO WILL DISPENSE TODAY PER PHYSICIAN INSTRUCTIONS.
[2023-01-22] MEDS: filgrastim-sndz 300 mcg/0.5 mL Syringe SUBCUT (12:07)
[2023-01-23 12:10] VITALS: BP 139/75; PULSE 78; RESP 16; TEMP 36.2; O2SAT 99
[2023-01-23] MEDS: filgrastim-sndz 300 mcg/0.5 mL Syringe SUBCUT (12:13)
[2023-01-24 11:30] VITALS: BP 152/76; PULSE 80; RESP 16; TEMP 36.7; O2SAT 98
[2023-01-24 11:30] LABS: Basophils # 0.1 10^3/uL (0.0-0.1); Basophils % 0.9 %; Eosinophils # 0.1 10^3/uL (0.0-0.8); Eosinophils % 0.7 %; Hematocrit 27.8 % (37.0-47.0); Hemoglobin 8.7 g/dL (11.5-15.3); Lymphocytes # 1.4 10^3/uL (0.8-4.8); Lymphocytes % 16.1 %; Mean Corpuscular HGB Conc 31.3 g/dL (30.0-36.0); Mean Corpuscular Hemoglobin 31.3 pg (28.0-34.0); Mean Platelet Volume 9.8 fL (7.4-10.4); Monocytes # 0.8 10^3/uL (0.2-0.9); Monocytes % 9.5 %; Neutrophils # 5.76 10^3/uL (1.8-7.7); Nucleated Red Blood Cells # 0.3 /100WBC; Nucleated Red Blood Cells % 3.3 %; Platelet Count 290 10^3/cmm (130-400); Red Blood Count 2.78 10^6/uL (4.1-5.3); Red Cell Distribution Width 20.6 % (12.1-15.1); White Blood Count 8.7 10^3/uL (4.0-10.0)
--- NOTE | 2023-01-24 12:33 | PC.NURSE ---
This nurse showed Dr. Briseno this patient's lab results. Dr. Briseno said that the patient can start chemo next week. This nurse tried to reach out to the patient and let her know. No answer but I did leave a message to let the patient know that her WBC was 8.[address] Briseno said she can start chemo next week. I did let the patient know that someone will reach out to her on Friday for an appt time and further instructions on Friday to start her chemo.
[2023-01-28 09:14] VITALS: BMI 25.4
[2023-01-28 09:14] LABS: Hematocrit 29.2 % (37.0-47.0); Hemoglobin 9.4 g/dL (11.5-15.3); Mean Corpuscular HGB Conc 32.2 g/dL (30.0-36.0); Mean Corpuscular Hemoglobin 32.1 pg (28.0-34.0); Mean Corpuscular Volume 99.7 fl (81-99); Platelet Count 236 10^3/cmm (130-400); Red Blood Count 2.93 10^6/uL (4.1-5.3); Red Cell Distribution Width 20.7 % (12.1-15.1); White Blood Count 7.7 10^3/uL (4.0-10.0)
[2023-01-28 09:17] VITALS: BP 125/67; PULSE 84; RESP 16; TEMP 36.8; O2SAT 98
[2023-01-28 09:34] LABS: Alanine Aminotransferase 20 U/L (0-33); Alkaline Phosphatase 145 U/L (35-105); Aspartate Amino Transferase 32 U/L (0-32); Blood Urea Nitrogen 22 mg/dL (8-23); Calcium 8.4 mg/dL (8.5-10.5); Carbon Dioxide 21 mmol/L (22-29); Chloride 107 mmol/L (98-107); Globulin 2.7 g/dL (1.3-4.6); Glucose 147 mg/dL (65-115); Osmolality Calculated 296 mOsm/kg (285-295); Sodium 140 mmol/L (136-145); Total Bilirubin 0.4 mg/dL (0.15-1.2); Total Protein 6.7 g/dL (6.6-8.7)
[2023-01-28 10:12] LABS: Slide Review Slide Review Perform
[2023-01-28 10:16] LABS: Absolute Segmented Neutrophil 2.6 10/cmm (1.6-7.1); Band Neutrophils Absolute 1.5 10^3/cmm (0.0-1.2); Eosinophils 1 %; Lymphocytes 19 %; Lymphocytes Absolute 1.6 10^3/cmm (1.2-3.4); Monocytes Absolute 1.2 10^3/cmm (0.1-0.6); Segmented Neutrophils 34 %; Total Cells Counted 100 (0-100)
[2023-01-28 10:18] LABS: Poikilocytosis 1+
[2023-01-28 10:19] LABS: Absolute Neutrophil 4.2 10^3/cmm (1.4-6.5); Platelet Estimate Normal (Normal); Tear Drop Cells Trace
[2023-01-28] MEDS: sodium chloride 0.9% 250 ML 75 ML IV (11:21)
[2023-01-28] MEDS: diphenhydrAMINE 50 mg/mL SDV 1mL 25 MG IVP (11:24)
[2023-01-28] MEDS: famotidine 20 mg/2 mL INJ IVP (11:32)
[2023-01-28] MEDS: ondansetron 2 mg/ML SDV 2 mL 8 MG IVP (11:37)
[2023-01-28] MEDS: dexamethasone 20 MG in sodium chloride 0.9% 50 ML 188 MG IV (11:47)
[2023-01-28 13:50] VITALS: BP 139/73; PULSE 75; RESP 18; TEMP 36.6; O2SAT 98
== END 2023-02-02 23:59 | disposition home or self-care (01) ==
PROVIDERS: Internal Medicine Hematology & Oncology; PCP Family Medicine; Visit Provider Internal Medicine Medical Oncology
DX: Z51.11 Encounter for antineoplastic chemotherapy (principal); C50.811 Malignant neoplasm of overlapping sites of right female breast; L59.8 Other specified disorders of the skin and subcutaneous tissue related to radiation; C79.51 Secondary malignant neoplasm of bone
CPT/HCPCS: 36415; 36591; 80053; 82607; 82728; 83540; 83550; 85007; 85025; 96367; 96372; 96375; 96401; 96413; 99214; J1100; J1200; J2405; J3490; J7050; J9267; Q5101

== ENCOUNTER 2023-02-19 08:00 | Oncology outpatient (recurring) (ONCR) | payer MEDICARE, SELFPAY ==
[2023-02-04 08:33] VITALS: BP 137/75; PULSE 77; RESP 16; TEMP 36.3
[2023-02-04 08:43] VITALS: BMI 25.9
[2023-02-04 09:01] LABS: Eosinophils # 0.1 10^3/uL (0.0-0.8); Eosinophils % 2.6 %; Hematocrit 26.2 % (37.0-47.0); Hemoglobin 8.5 g/dL (11.5-15.3); Lymphocytes # 0.9 10^3/uL (0.8-4.8); Lymphocytes % 28.3 %; Mean Corpuscular HGB Conc 32.4 g/dL (30.0-36.0); Mean Corpuscular Hemoglobin 31.8 pg (28.0-34.0); Mean Corpuscular Volume 98.1 fl (81-99); Mean Platelet Volume 9.9 fL (7.4-10.4); Monocytes # 0.2 10^3/uL (0.2-0.9); Monocytes % 7.6 %; Neutrophils # 1.81 10^3/uL (1.8-7.7); Neutrophils % 59.5 %; Nucleated Red Blood Cells % 0 %; Platelet Count 225 10^3/cmm (130-400); Red Blood Count 2.67 10^6/uL (4.1-5.3); Red Cell Distribution Width 19.5 % (12.1-15.1)
[2023-02-04 09:21] LABS: Alanine Aminotransferase 18 U/L (0-33); Albumin Level 3.8 g/dL (3.5-5.2); Alkaline Phosphatase 126 U/L (35-105); Aspartate Amino Transferase 27 U/L (0-32); Blood Urea Nitrogen 18 mg/dL (8-23); Calcium 8.9 mg/dL (8.5-10.5); Carbon Dioxide 22 mmol/L (22-29); Chloride 105 mmol/L (98-107); Creatinine Clr Calc Pharmacy 48.9825; Globulin 2.4 g/dL (1.3-4.6); Glucose 91 mg/dL (65-115); Osmolality Calculated 285 mOsm/kg (285-295); Sodium 137 mmol/L (136-145); Total Bilirubin 0.2 mg/dL (0.15-1.2); Total Protein 6.2 g/dL (6.6-8.7)
[2023-02-04 09:23] LABS: Anion Gap 13.9 (5-19); Potassium 3.9 mmol/L (3.5-5.1)
[2023-02-04] MEDS: sodium chloride 0.9% 250 ML 75 ML IV (10:32)
[2023-02-04] MEDS: diphenhydrAMINE 50 mg/mL SDV 1mL 25 MG IVP (10:36)
[2023-02-04] MEDS: famotidine 20 mg/2 mL INJ IVP (10:42)
[2023-02-04] MEDS: ondansetron 2 mg/ML SDV 2 mL 8 MG IVP (10:46)
[2023-02-04] MEDS: dexamethasone 20 MG in sodium chloride 0.9% 50 ML 188 MG IV (10:55)
[2023-02-04 12:43] VITALS: BP 139/88; PULSE 92; RESP 16; TEMP 37.1; O2SAT 96
[2023-02-05] MEDS: filgrastim-sndz 300 mcg/0.5 mL Syringe SUBCUT (15:03)
[2023-02-05 15:07] VITALS: BP 148/79; PULSE 76; RESP 18; TEMP 36.4; O2SAT 99
[2023-02-06] MEDS: filgrastim-sndz 300 mcg/0.5 mL Syringe SUBCUT (14:41)
[2023-02-06 14:45] VITALS: BP 120/70; PULSE 78; RESP 18; TEMP 36.2; O2SAT 97
[2023-02-07] MEDS: filgrastim-sndz 300 mcg/0.5 mL Syringe SUBCUT (10:16)
[2023-02-07 10:18] VITALS: BP 102/64; PULSE 81; RESP 16; TEMP 36.3; O2SAT 98
[2023-02-11 09:16] VITALS: BP 125/67; PULSE 84; RESP 16; TEMP 36.2; O2SAT 96
[2023-02-11 09:52] LABS: Hematocrit 25.9 % (37.0-47.0); Hemoglobin 8.2 g/dL (11.5-15.3); Mean Corpuscular HGB Conc 31.7 g/dL (30.0-36.0); Mean Corpuscular Hemoglobin 31.7 pg (28.0-34.0); Mean Platelet Volume 10.1 fL (7.4-10.4); Platelet Count 311 10^3/cmm (130-400); Red Blood Count 2.59 10^6/uL (4.1-5.3); Red Cell Distribution Width 19.7 % (12.1-15.1); White Blood Count 8.1 10^3/uL (4.0-10.0)
[2023-02-11 10:13] LABS: Alanine Aminotransferase 16 U/L (0-33); Alkaline Phosphatase 133 U/L (35-105); Aspartate Amino Transferase 26 U/L (0-32); Blood Urea Nitrogen 26 mg/dL (8-23); Calcium 8.5 mg/dL (8.5-10.5); Carbon Dioxide 21 mmol/L (22-29); Chloride 108 mmol/L (98-107); Globulin 2.3 g/dL (1.3-4.6); Glucose 112 mg/dL (65-115); Osmolality Calculated 294 mOsm/kg (285-295); Sodium 139 mmol/L (136-145); Total Bilirubin 0.2 mg/dL (0.15-1.2); Total Protein 6.3 g/dL (6.6-8.7)
[2023-02-11 10:15] LABS: Anion Gap 14.4 (5-19); Potassium 4.4 mmol/L (3.5-5.1)
[2023-02-11 10:29] LABS: Absolute Segmented Neutrophil 6.1 10/cmm (1.6-7.1); Band Neutrophils Absolute 0.5 10^3/cmm (0.0-1.2); Eosinophils 0 %; Lymphocytes 12 %; Lymphocytes Absolute 1.1 10^3/cmm (1.2-3.4); Segmented Neutrophils 75 %; Slide Review Slide Review Perform; Total Cells Counted 100 (0-100)
[2023-02-11 10:30] LABS: Absolute Neutrophil 6.6 10^3/cmm (1.4-6.5); Platelet Estimate Normal (Normal)
[2023-02-11] MEDS: sodium chloride 0.9% 250 ML 75 ML IV (11:09)
[2023-02-11] MEDS: ondansetron 2 mg/ML SDV 2 mL 8 MG IVP (11:09)
[2023-02-11] MEDS: famotidine 20 mg/2 mL INJ IVP (11:12)
[2023-02-11] MEDS: diphenhydrAMINE 50 mg/mL SDV 1mL 25 MG IVP (11:14)
[2023-02-11] MEDS: dexamethasone 20 MG in sodium chloride 0.9% 50 ML 188 MG IV (11:33)
[2023-02-11 12:32] VITALS: BP 139/75; PULSE 71; RESP 16; TEMP 36.4; O2SAT 94
[2023-02-18] VITALS (9 sets, daily range): BP systolic 117–142; BP diastolic 63–80; PULSE 71–81; RESP 16; TEMP 36.4–36.8; O2SAT 95–99; BMI 25.9
[2023-02-18 09:23] LABS: Basophils % 0.8 %; Eosinophils # 0.1 10^3/uL (0.0-0.8); Eosinophils % 2.4 %; Hematocrit 24.7 % (37.0-47.0); Lymphocytes # 1.1 10^3/uL (0.8-4.8); Lymphocytes % 21.6 %; Mean Corpuscular HGB Conc 32.4 g/dL (30.0-36.0); Mean Corpuscular Hemoglobin 32.1 pg (28.0-34.0); Mean Corpuscular Volume 99.2 fl (81-99); Mean Platelet Volume 9.6 fL (7.4-10.4); Monocytes # 0.4 10^3/uL (0.2-0.9); Monocytes % 8.3 %; Neutrophils # 3.18 10^3/uL (1.8-7.7); Neutrophils % 63.1 %; Nucleated Red Blood Cells # 0.1 /100WBC; Nucleated Red Blood Cells % 1.6 %; Platelet Count 305 10^3/cmm (130-400); Red Blood Count 2.49 10^6/uL (4.1-5.3)
[2023-02-18 09:45] LABS: Alanine Aminotransferase 25 U/L (0-33); Albumin Level 3.8 g/dL (3.5-5.2); Alkaline Phosphatase 119 U/L (35-105); Anion Gap 17.1 (5-19); Aspartate Amino Transferase 26 U/L (0-32); Blood Urea Nitrogen 18 mg/dL (8-23); Calcium 8.2 mg/dL (8.5-10.5); Carbon Dioxide 21 mmol/L (22-29); Chloride 104 mmol/L (98-107); Globulin 2.5 g/dL (1.3-4.6); Glucose 128 mg/dL (65-115); Osmolality Calculated 290 mOsm/kg (285-295); Potassium 4.1 mmol/L (3.5-5.1); Sodium 138 mmol/L (136-145); Total Bilirubin 0.3 mg/dL (0.15-1.2); Total Protein 6.3 g/dL (6.6-8.7)
[2023-02-18] MEDS: diphenhydrAMINE 25 mg Capsule PO (12:18)
[2023-02-18] MEDS: sodium chloride 0.9% 100 mL Bag 50 ML IV ×2 (12:20→14:26)
[2023-02-18] MEDS: FUROsemide 10 mg/mL SDV 2mL 20 MG IVP (14:26)
[2023-02-19 07:56] VITALS: BP 152/78; PULSE 93; RESP 16; TEMP 35.7; O2SAT 96
[2023-02-19] MEDS: sodium chloride 0.9% (100 ml) 100 ML 75 ML (08:33)
[2023-02-19] MEDS: famotidine 20 mg/2 mL INJ IVP (08:35)
[2023-02-19] MEDS: ondansetron 2 mg/ML SDV 2 mL 8 MG IVP (08:37)
[2023-02-19] MEDS: diphenhydrAMINE 50 mg/mL SDV 1mL 25 MG IVP (08:40)
[2023-02-19] MEDS: dexamethasone 20 MG in sodium chloride 0.9% 50 ML 188 MG IV (08:42)
[2023-02-19 10:01] VITALS: BP 162/87; PULSE 80; RESP 16; TEMP 36.4; O2SAT 93
== END 2023-03-05 23:59 | disposition home or self-care (01) ==
PROVIDERS: Internal Medicine Hematology & Oncology; PCP Family Medicine; Visit Provider Internal Medicine Medical Oncology
DX: Z51.11 Encounter for antineoplastic chemotherapy (principal); C50.911 Malignant neoplasm of unspecified site of right female breast
CPT/HCPCS: 36430; 80053; 85007; 85025; 86850; 86900; 86920; 96365; 96367; 96372; 96374; 96375; 96413; 96417; 99214; J1100; J1200; J1642; J1940; J2405; J3490; J7050; J9267; P9016; Q5101

== ENCOUNTER 2023-04-10 11:59 | Oncology outpatient (recurring) (ONCR) | payer MEDICARE, SELFPAY ==
[2023-04-10 12:03] VITALS: BP 156/84; PULSE 83; RESP 18; TEMP 36.3; O2SAT 97
[2023-04-10 12:15] LABS: Basophils % 0.7 %; Eosinophils % 0.7 %; Hematocrit 31.9 % (37.0-47.0); Hemoglobin 10.4 g/dL (11.5-15.3); Lymphocytes # 1.1 10^3/uL (0.8-4.8); Lymphocytes % 24.1 %; Mean Corpuscular HGB Conc 32.6 g/dL (30.0-36.0); Mean Corpuscular Hemoglobin 33.4 pg (28.0-34.0); Mean Corpuscular Volume 102.6 fl (81-99); Mean Platelet Volume 9.3 fL (7.4-10.4); Monocytes % 21.6 %; Neutrophils # 2.32 10^3/uL (1.8-7.7); Neutrophils % 52.2 %; Nucleated Red Blood Cells % 0.9 %; Platelet Count 254 10^3/cmm (130-400); Red Blood Count 3.11 10^6/uL (4.1-5.3); Red Cell Distribution Width 21.6 % (12.1-15.1); White Blood Count 4.4 10^3/uL (4.0-10.0)
[2023-04-10 12:37] LABS: Alanine Aminotransferase 13 U/L (0-33); Albumin Level 4.1 g/dL (3.5-5.2); Alkaline Phosphatase 99 U/L (35-105); Anion Gap 14.3 (5-19); Aspartate Amino Transferase 23 U/L (0-32); Blood Urea Nitrogen 18 mg/dL (8-23); Carbon Dioxide 24 mmol/L (22-29); Chloride 105 mmol/L (98-107); Creatinine Clr Calc Pharmacy 48.9825; Globulin 2.1 g/dL (1.3-4.6); Glucose 82 mg/dL (65-115); Osmolality Calculated 289 mOsm/kg (285-295); Potassium 4.3 mmol/L (3.5-5.1); Sodium 139 mmol/L (136-145); Total Bilirubin 0.3 mg/dL (0.15-1.2); Total Protein 6.2 g/dL (6.6-8.7)
== END 2023-05-05 23:59 | disposition home or self-care (01) ==
PROVIDERS: Nurse Practitioner Family; PCP Family Medicine; Visit Provider Internal Medicine Medical Oncology
DX: C50.811 Malignant neoplasm of overlapping sites of right female breast (principal); Z17.0 Estrogen receptor positive status [ER+]; C79.51 Secondary malignant neoplasm of bone; L59.8 Other specified disorders of the skin and subcutaneous tissue related to radiation; Z79.899 Other long term (current) drug therapy
CPT/HCPCS: 36591; 80053; 85025; 99214; J1642

== ENCOUNTER 2023-05-27 10:22 | Oncology outpatient (recurring) (ONCR) | payer MEDICARE, SELFPAY ==
[2023-05-27 12:57] LABS: Basophils % 0.6 %; Eosinophils # 0.2 10^3/uL (0.0-0.8); Eosinophils % 2.2 %; Lymphocytes # 1.6 10^3/uL (0.8-4.8); Lymphocytes % 23.3 %; Mean Corpuscular HGB Conc 31.9 g/dL (30-55); Mean Corpuscular Volume 100.3 fl (85-98); Mean Platelet Volume 9.6 fL (7.4-10.4); Monocytes # 0.9 10^3/uL (0.2-0.9); Monocytes % 12.7 %; Neutrophils # 4.24 10^3/uL (1.8-7.7); Neutrophils % 60.9 %; Nucleated Red Blood Cells % 0.3 %; Platelet Count 311 10^3/cmm (157-399); Red Blood Count 3.69 10^6/uL (3.85-5.65); Red Cell Distribution Width 17.7 % (12.1-15.1); White Blood Count 6.95 10^3/uL (3.29-11.43)
[2023-05-27 13:25] LABS: Alanine Aminotransferase 16 U/L (0-33); Albumin Level 4.2 g/dL (3.5-5.2); Alkaline Phosphatase 124 U/L (35-105); Aspartate Amino Transferase 24 U/L (0-32); Blood Urea Nitrogen 22 mg/dL (8-23); Calcium 9.2 mg/dL (8.5-10.5); Carbon Dioxide 25 mmol/L (22-29); Chloride 105 mmol/L (98-107); Globulin 2.7 g/dL (1.3-4.6); Glucose 74 mg/dL (65-115); Osmolality Calculated 288 mOsm/kg (285-295); Sodium 138 mmol/L (136-145); Total Bilirubin 0.4 mg/dL (0.15-1.2); Total Protein 6.9 g/dL (6.6-8.7)
[2023-05-27 13:47] LABS: CA 15-3 726.5 U/mL (0-25)
[2023-05-29 05:45] LABS: CA 27.29 772 U/mL (<38)
== END 2023-06-05 23:59 | disposition home or self-care (01) ==
PROVIDERS: Internal Medicine Medical Oncology; PCP Family Medicine; Visit Provider Internal Medicine Medical Oncology
DX: D70.9 Neutropenia, unspecified (principal); C50.919 Malignant neoplasm of unspecified site of unspecified female breast; C50.311 Malignant neoplasm of lower-inner quadrant of right female breast; Z17.0 Estrogen receptor positive status [ER+]
CPT/HCPCS: 80053; 85025; 86300; 99214

== ENCOUNTER 2023-06-14 05:46 | Outpatient (CLI) | payer MEDICARE, SELFPAY ==
--- NOTE | 2023-06-14 10:00 | PETR_ITS ---
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 Then, PET images were obtained. Attenuation corrected images were constructed using the CT scan. Fused images of PET and CT were reviewed. The standardized uptake values (SUV) reported below are maximum values within a region of interest, expressed in gm/ml. Exam includes orbital meatal line to mid-thigh. Radiopharmaceutical: 15.9 mCi F-18 FDG (Fluorodeoxyglucose), IV. Time of imaging post radiopharmaceutical administration: 1 hour Injection site: Not specified COMPARISON: PT PET skulltothi INITIAL [id number] 12/07/2022 9:46 AM FINDINGS: Limitations: Motion artifact. Brain: Visualized brain has normal physiologic uptake. Pharynx: No abnormal uptake. Larynx: No abnormal uptake. Lungs, pleura and trachea: Subtle new areas of mild peripheral patchy density adjacent to the pleural surface in the anterior right upper lobe are noted with new elevated uptake, SUV max 3.3. Heart: Normal physiologic uptake. Mediastinal space: No abnormal uptake. Diaphragm: Small hiatal hernia. Liver: No abnormal uptake. Gallbladder and bile ducts: No abnormal uptake. Pancreas: No abnormal uptake. Spleen: No abnormal uptake. Adrenal glands: No abnormal uptake. Kidneys and ureters: There are bilateral renal low-density structures compatible with benign cysts, the largest of which arises inferiorly from the right kidney with minimal peripheral wall calcification measuring 6.5 cm in diameter. Stomach and bowel: No abnormal uptake. There are scattered colonic diverticula. Vasculature: No abnormal uptake. There are diffuse atherosclerotic changes. Lymph nodes: No abnormal uptake. No lymphadenopathy in the head, neck, chest, abdomen, pelvis, and extremities. Bones/joints: Similar distribution of radiotracer avid mixed lytic and sclerotic lesions. Previously noted abnormal uptake in the posteromedial right iliac bone currently demonstrates an SUV max 7.0 on PET series 4, image 106 (previously 5.9). Uptake in the anterior right iliac bone on series 3, image 99 demonstrates an SUV max 4.2 (previously 3.7). Uptake in the lateral superior right sacrum is present, SUV max 4.3 (previously 3.7). Additional numerous scattered sclerotic non radiotracer avid osseous lesions are noted. For example a 1 cm sclerotic lesion in the L3 vertebral body posteriorly on series 3, image 84 is present and appears similar. There is new uptake in the T10 vertebral body, SUV max 4.1 where there is a probable new moderate compression fracture compared with the prior PET-CT. Uptake in the anterior L5 vertebral body demonstrates an SUV max 3.2 (previously 3.6). Moderate appearing bilateral glenohumeral joint primary osteoarthritic changes. Soft tissues: There are postoperative changes of right mastectomy which are new since the prior PET-CT. There is mild uptake in the anterolateral right chest wall region for example on series 3, image 44, SUV max 3.1 and in the medial infraspinatus muscle, SUV max 3.9 on image 46 with no corresponding lesions on the comparison CT images. Additional likely benign-appearing regions of muscular uptake are identified for example in the right iliopsoas muscle, SUV max 6.2. Previously noted right pectoralis muscular uptake is no longer identified. METRICS: Mediastinal blood pool: SUV max 2.0 PET/PET skulltothigh SUBSEQ [id number] IMPRESSION: 1. There are new postoperative changes of right mastectomy compared with the prior PET-CT. Mild uptake in the chest wall in this region and within areas of peripheral patchy density in the adjacent right upper lobe is noted, likely reflecting post treatment inflammatory changes. No definitive evidence of residual or recurrent malignancy. 2. Additional areas of muscular uptake are noted which appear benign as detailed above. 3. There are numerous mixed lytic and sclerotic osseous lesions which appears similar in size and number. The majority of these lesions are not radiotracer avid consistent with treated metastatic lesions. Previously noted radiotracer avid lesions consistent with hypermetabolic metastases demonstrate slightly increased uptake concerning for increased neoplastic involvement in these areas for example in the right iliac bone and right sacrum. New uptake in the T10 vertebral body is identified where there appears to be new compression fracture which may be posttraumatic and/or pathologic in nature. 4. Additional nonurgent findings as detailed above.
== END 2023-06-14 05:47 | disposition home or self-care (01) ==
LOC: RAD 06-16 05:47
PROVIDERS: PCP Family Medicine; Visit Provider Internal Medicine Medical Oncology
DX: C50.311 Malignant neoplasm of lower-inner quadrant of right female breast (principal); Z90.12 Acquired absence of left breast and nipple; M89.9 Disorder of bone, unspecified; Z92.3 Personal history of irradiation
CPT/HCPCS: 78815; A9552

== ENCOUNTER 2023-06-26 09:24 | Oncology outpatient (recurring) (ONCR) | payer MEDICARE, SELFPAY ==
[2023-06-26 10:45] VITALS: BP 154/79; PULSE 71; RESP 17; TEMP 36; O2SAT 96
[2023-06-26 10:48] LABS: Basophils % 0.5 %; Eosinophils # 0.2 10^3/uL (0.0-0.8); Eosinophils % 2.6 %; Hematocrit 37.4 % (36-47); Lymphocytes # 1.2 10^3/uL (0.8-4.8); Lymphocytes % 19.3 %; Mean Corpuscular HGB Conc 32.9 g/dL (30-55); Mean Corpuscular Hemoglobin 31.8 pg (27-33); Mean Corpuscular Volume 96.6 fl (85-98); Mean Platelet Volume 9.4 fL (7.4-10.4); Monocytes # 0.8 10^3/uL (0.2-0.9); Monocytes % 12.9 %; Neutrophils % 64.4 %; Nucleated Red Blood Cells % 0.5 %; Platelet Count 338 10^3/cmm (157-399); Red Blood Count 3.87 10^6/uL (3.85-5.65); White Blood Count 6.06 10^3/uL (3.29-11.43)
[2023-06-26 11:25] LABS: Alanine Aminotransferase 15 U/L (0-33); Albumin Level 4.3 g/dL (3.5-5.2); Alkaline Phosphatase 125 U/L (35-105); Anion Gap 16.2 (5-19); Aspartate Amino Transferase 28 U/L (0-32); Blood Urea Nitrogen 24 mg/dL (8-23); Calcium 9.4 mg/dL (8.5-10.5); Carbon Dioxide 23 mmol/L (22-29); Chloride 104 mmol/L (98-107); Glucose 95 mg/dL (65-115); Osmolality Calculated 292 mOsm/kg (285-295); Potassium 4.2 mmol/L (3.5-5.1); Sodium 139 mmol/L (136-145); Total Bilirubin 0.4 mg/dL (0.15-1.2); Total Protein 7.3 g/dL (6.6-8.7)
[2023-06-26] MEDS: fulvestrant 250 mg/5 mL Syringe 500 MG IM (11:34)
[2023-06-26 11:40] VITALS: BP 128/68; PULSE 68; O2SAT 97
[2023-06-26 11:49] LABS: CA 15-3 880.1 U/mL (0-25)
[2023-06-27 11:49] LABS: CA 27.29 862 U/mL (<38)
== END 2023-07-05 23:59 | disposition home or self-care (01) ==
PROVIDERS: Internal Medicine Medical Oncology; PCP Family Medicine; Visit Provider Internal Medicine Medical Oncology
DX: C50.911 Malignant neoplasm of unspecified site of right female breast (principal); Z90.11 Acquired absence of right breast and nipple
CPT/HCPCS: 36415; 80053; 85025; 86300; 99215; J9395

== ENCOUNTER 2023-07-10 09:27 | Oncology outpatient (recurring) (ONCR) | payer MEDICARE, SELFPAY ==
[2023-07-10 10:15] VITALS: BP 130/73; PULSE 85; RESP 16; TEMP 36.5; O2SAT 98
[2023-07-10 10:23] LABS: Basophils % 0.3 %; Eosinophils # 0.1 10^3/uL (0.0-0.8); Eosinophils % 2.5 %; Hematocrit 36.2 % (36-47); Lymphocytes % 33.1 %; Mean Corpuscular HGB Conc 32.9 g/dL (30-55); Mean Corpuscular Hemoglobin 31.8 pg (27-33); Mean Corpuscular Volume 96.8 fl (85-98); Mean Platelet Volume 8.7 fL (7.4-10.4); Monocytes # 0.2 10^3/uL (0.2-0.9); Monocytes % 6.4 %; Neutrophils % 57.4 %; Nucleated Red Blood Cells % 0 %; Platelet Count 224 10^3/cmm (157-399); Red Blood Count 3.74 10^6/uL (3.85-5.65); Red Cell Distribution Width 16.9 % (12.1-15.1); White Blood Count 3.14 10^3/uL (3.29-11.43)
[2023-07-10 10:41] LABS: Alanine Aminotransferase 24 U/L (0-33); Albumin Level 3.9 g/dL (3.5-5.2); Alkaline Phosphatase 141 U/L (35-105); Anion Gap 14.1 (5-19); Aspartate Amino Transferase 34 U/L (0-32); Blood Urea Nitrogen 23 mg/dL (8-23); Carbon Dioxide 23 mmol/L (22-29); Chloride 104 mmol/L (98-107); Globulin 2.8 g/dL (1.3-4.6); Glucose 84 mg/dL (65-115); Osmolality Calculated 287 mOsm/kg (285-295); Potassium 4.1 mmol/L (3.5-5.1); Sodium 137 mmol/L (136-145); Total Bilirubin 0.5 mg/dL (0.15-1.2); Total Protein 6.7 g/dL (6.6-8.7)
[2023-07-10] MEDS: fulvestrant 250 mg/5 mL Syringe 500 MG IM (12:14)
== END 2023-08-05 23:59 | disposition home or self-care (01) ==
PROVIDERS: Internal Medicine Medical Oncology; PCP Family Medicine; Visit Provider Internal Medicine Medical Oncology
DX: D70.9 Neutropenia, unspecified (principal); C50.311 Malignant neoplasm of lower-inner quadrant of right female breast; Z17.0 Estrogen receptor positive status [ER+]; Z79.899 Other long term (current) drug therapy; Z53.9 Procedure and treatment not carried out, unspecified reason
CPT/HCPCS: 36415; 80053; 85025; 99214; J9395

== ENCOUNTER 2023-09-04 10:02 | Oncology outpatient (recurring) (ONCR) | payer MEDICARE, SELFPAY ==
[2023-08-07 09:06] VITALS: BP 102/67; PULSE 78; RESP 17; TEMP 36.2; O2SAT 98; BMI 20.8
[2023-08-07 09:06] LABS: Basophils % 1.7 %; Eosinophils % 1.7 %; Hematocrit 31.4 % (36-47); Lymphocytes # 0.8 10^3/uL (0.8-4.8); Lymphocytes % 32.6 %; Mean Corpuscular HGB Conc 33.4 g/dL (30-55); Mean Corpuscular Volume 95.7 fl (85-98); Mean Platelet Volume 8.1 fL (7.4-10.4); Monocytes # 0.2 10^3/uL (0.2-0.9); Monocytes % 6.5 %; Neutrophils % 56.6 %; Nucleated Red Blood Cells % 0 %; Platelet Count 191 10^3/cmm (157-399); Red Blood Count 3.28 10^6/uL (3.85-5.65); Red Cell Distribution Width 18.6 % (12.1-15.1)
[2023-08-07 09:27] LABS: Alanine Aminotransferase 20 U/L (0-33); Alkaline Phosphatase 177 U/L (35-105); Anion Gap 13.9 (5-19); Aspartate Amino Transferase 28 U/L (0-32); Blood Urea Nitrogen 22 mg/dL (8-23); Calcium 9.1 mg/dL (8.5-10.5); Carbon Dioxide 21 mmol/L (22-29); Chloride 108 mmol/L (98-107); Globulin 2.5 g/dL (1.3-4.6); Glucose 91 mg/dL (65-115); Osmolality Calculated 291 mOsm/kg (285-295); Potassium 3.9 mmol/L (3.5-5.1); Sodium 139 mmol/L (136-145); Total Bilirubin 0.5 mg/dL (0.15-1.2); Total Protein 6.5 g/dL (6.6-8.7)
[2023-08-07] MEDS: fulvestrant 250 mg/5 mL Syringe 500 MG IM (11:32)
[2023-08-07] MEDS: denosumab 120 mg SDV SUBCUT (11:35)
[2023-08-21 15:31] LABS: Eosinophils # 0.1 10^3/uL (0.0-0.8); Eosinophils % 1.7 %; Hematocrit 29.6 % (36-47); Lymphocytes # 0.8 10^3/uL (0.8-4.8); Lymphocytes % 28.4 %; Mean Corpuscular HGB Conc 33.1 g/dL (30-55); Mean Corpuscular Hemoglobin 32.2 pg (27-33); Mean Corpuscular Volume 97.4 fl (85-98); Mean Platelet Volume 9.2 fL (7.4-10.4); Monocytes # 0.2 10^3/uL (0.2-0.9); Monocytes % 7.5 %; Neutrophils # 1.78 10^3/uL (1.8-7.7); Neutrophils % 61.1 %; Nucleated Red Blood Cells % 0 %; Platelet Count 214 10^3/cmm (157-399); Red Blood Count 3.04 10^6/uL (3.85-5.65); Red Cell Distribution Width 20.7 % (12.1-15.1); White Blood Count 2.92 10^3/uL (3.29-11.43)
[2023-08-21 15:55] LABS: Alanine Aminotransferase 21 U/L (0-33); Albumin Level 4.2 g/dL (3.5-5.2); Alkaline Phosphatase 184 U/L (35-105); Anion Gap 15.3 (5-19); Aspartate Amino Transferase 32 U/L (0-32); Blood Urea Nitrogen 19 mg/dL (8-23); Carbon Dioxide 19 mmol/L (22-29); Chloride 109 mmol/L (98-107); Globulin 2.7 g/dL (1.3-4.6); Glucose 93 mg/dL (65-115); Osmolality Calculated 290 mOsm/kg (285-295); Potassium 4.3 mmol/L (3.5-5.1); Sodium 139 mmol/L (136-145); Total Bilirubin 0.4 mg/dL (0.15-1.2); Total Protein 6.9 g/dL (6.6-8.7)
[2023-09-04 10:25] VITALS: BP 125/73; PULSE 92; RESP 16; TEMP 36.8; O2SAT 95
[2023-09-04 10:31] LABS: Basophils % 1.1 %; Eosinophils # 0.1 10^3/uL (0.0-0.8); Eosinophils % 4.1 %; Hematocrit 30.1 % (36-47); Lymphocytes # 0.8 10^3/uL (0.8-4.8); Lymphocytes % 28.2 %; Mean Corpuscular HGB Conc 32.9 g/dL (30-55); Mean Corpuscular Hemoglobin 33.1 pg (27-33); Mean Corpuscular Volume 100.7 fl (85-98); Mean Platelet Volume 8.5 fL (7.4-10.4); Monocytes # 0.2 10^3/uL (0.2-0.9); Neutrophils % 56.5 %; Nucleated Red Blood Cells % 1.1 %; Platelet Count 195 10^3/cmm (157-399); Red Blood Count 2.99 10^6/uL (3.85-5.65); Red Cell Distribution Width 22.5 % (12.1-15.1); White Blood Count 2.66 10^3/uL (3.29-11.43)
[2023-09-04 10:52] LABS: Alanine Aminotransferase 20 U/L (0-33); Albumin Level 3.8 g/dL (3.5-5.2); Alkaline Phosphatase 195 U/L (35-105); Aspartate Amino Transferase 30 U/L (0-32); Blood Urea Nitrogen 23 mg/dL (8-23); Calcium 8.4 mg/dL (8.5-10.5); Carbon Dioxide 20 mmol/L (22-29); Chloride 108 mmol/L (98-107); Globulin 2.7 g/dL (1.3-4.6); Glucose 108 mg/dL (65-115); Osmolality Calculated 292 mOsm/kg (285-295); Sodium 139 mmol/L (136-145); Total Bilirubin 0.4 mg/dL (0.15-1.2); Total Protein 6.5 g/dL (6.6-8.7)
== END 2023-09-04 23:59 | disposition home or self-care (01) ==
PROVIDERS: Internal Medicine Medical Oncology; PCP Family Medicine; Visit Provider Internal Medicine Medical Oncology
DX: C50.919 Malignant neoplasm of unspecified site of unspecified female breast (principal); C79.51 Secondary malignant neoplasm of bone; Z17.0 Estrogen receptor positive status [ER+]; Z79.899 Other long term (current) drug therapy
CPT/HCPCS: 36415; 80053; 85025; 86300; 99214; J0897; J9395

== ENCOUNTER 2023-09-16 14:14 | Outpatient (CLI) | payer MEDICARE, SELFPAY ==
--- NOTE | 2023-09-16 10:30 | PETR_ITS ---
PROCEDURE INFORMATION: Exam: PET/CT Skull Base to Mid-thigh Exam date and time: 09/16/2023 11:18 AM Age: 77 years old Clinical indication: Condition or disease; Primary cancer: Radiation induced angiosarcoma of breast LABS AND CLINICAL REPORTS: Glucose: 132 mg/dl Treatment strategy for malignancy (PET staging): Restaging (PS) TECHNIQUE: Imaging protocol: Following at least four-hour fasting and following the injection of radiopharmaceutical, low dose CT images were obtained. Then, PET images were obtained. Attenuation corrected images were constructed using the CT scan. Fused images of PET and CT were reviewed. The standardized uptake values (SUV) reported below are maximum values within a region of interest, expressed in gm/ml. Exam includes orbital meatal line to mid-thigh. Radiopharmaceutical: 11.99 mCi F-18 FDG (Fluorodeoxyglucose), IV. Time of imaging post radiopharmaceutical administration: 1 hour Injection site: Left antecubital vein COM[facility] [id number] 06/14/2023 and 12/07/2022 FINDINGS: Brain: Visualized brain has normal physiologic uptake. Pharynx: No abnormal uptake. Larynx: No abnormal uptake. Lungs, pleura and trachea: No abnormal uptake. No suspicious lung nodules or masses. Stable subpleural scarring anteriorly in the right upper lobe. No pleural effusion. Heart: Normal physiologic uptake. Mild cardiomegaly.No coronary artery calcification is visualized. There is no pericardial effusion. Mediastinal space: No abnormal uptake. There is a small hiatal hernia. Liver: No abnormal uptake. Gallbladder and bile ducts: No abnormal uptake. No calcified gallstones. Pancreas: No abnormal uptake. Spleen: No abnormal uptake. No splenomegaly. Adrenal glands: No abnormal uptake. No adrenal nodules. Kidneys and ureters: Normal physiologic uptake. No hydronephrosis. Persistent simple parapelvic cysts in both kidneys. Persistent about 6.8 cm simple cyst exophytic from the lower pole of the right kidney. Stomach and bowel: No abnormal uptake. Intraperitoneal and retroperitoneal spaces: No abnormal uptake. No ascites. Urinary bladder: Normal physiologic uptake. Reproductive: No abnormal uptake. The uterus and the adnexa are absent. Vasculature: No abnormal uptake. There is ectasia of the ascending aorta measuring 3.8 cm. There is borderline dilatation of the aortic arch measuring 3.1 cm. No abdominal aortic aneurysm. Lymph nodes: No abnormal uptake. No lymphadenopathy in the head, neck, chest, abdomen, pelvis, and extremities. Bones/joints: Persistent abnormal uptake of 6.7 SUV posteriorly in the right iliac bone on axial image 164, previously 7 SUV. Couple of areas of previously increased uptake have resolved. This includes right iliac bone anterior uptake on axial image 155 decreased from 4.2 SUV to 2.2 SUV, and right scapular blade on axial image 77 decreased from 3.9 SUV to 1.5 SUV. There is no morphologic change in innumerous sclerotic lesion scattered in the skeleton most prominent in the spine. There is stable grade 1 degenerative anterolisthesis of L5. There is stable increased synovial uptake in the shoulders suggestive of benign inflammatory/degenerative findings. Soft tissues: No abnormal uptake in the visualized head, neck, chest, abdomen, pelvis, and extremities. Stable changes after right mastectomy with small fluid collection the maximal thickness of 1 cm suggestive of postsurgical seroma. PET/PET skulltothigh SUBSEQ [id number] IMPRESSION: There is overall stable disease with persistent increased uptake posteriorly in the right iliac bone with no new or progressive FDG avid osseous or extraosseous findings. A couple of previously mildly FDG avid skeletal findings have resolved in abnormal uptake on the current study.
== END 2023-09-16 14:15 | disposition home or self-care (01) ==
LOC: RAD 14:14
PROVIDERS: PCP Family Medicine; Visit Provider Internal Medicine Medical Oncology
DX: C50.811 Malignant neoplasm of overlapping sites of right female breast (principal); C44.591 Other specified malignant neoplasm of skin of breast; T66.XXXA Radiation sickness, unspecified, initial encounter; C77.3 Secondary and unspecified malignant neoplasm of axilla and upper limb lymph nodes; C79.51 Secondary malignant neoplasm of bone
CPT/HCPCS: 78815; A9552

== ENCOUNTER 2023-09-25 12:10 | Oncology outpatient (recurring) (ONCR) | payer MEDICARE, SELFPAY ==
[2023-09-25 12:20] VITALS: BP 123/73; PULSE 92; RESP 16; TEMP 36.9; O2SAT 98
[2023-09-25 12:28] LABS: Basophils # 0.1 10^3/uL (0.0-0.1); Basophils % 1.3 %; Eosinophils # 0.1 10^3/uL (0.0-0.8); Hematocrit 30.9 % (36-47); Lymphocytes # 0.9 10^3/uL (0.8-4.8); Mean Corpuscular HGB Conc 32.4 g/dL (30-55); Mean Corpuscular Hemoglobin 33.4 pg (27-33); Mean Corpuscular Volume 103.3 fl (85-98); Mean Platelet Volume 8.4 fL (7.4-10.4); Monocytes # 0.5 10^3/uL (0.2-0.9); Monocytes % 12.9 %; Neutrophils # 2.09 10^3/uL (1.8-7.7); Neutrophils % 56.2 %; Nucleated Red Blood Cells # 0.1 /100WBC; Nucleated Red Blood Cells % 1.6 %; Platelet Count 294 10^3/cmm (157-399); Red Blood Count 2.99 10^6/uL (3.85-5.65); Red Cell Distribution Width 22.5 % (12.1-15.1); White Blood Count 3.72 10^3/uL (3.29-11.43)
[2023-09-25 12:43] LABS: Alanine Aminotransferase 48 U/L (0-33); Albumin Level 3.9 g/dL (3.5-5.2); Alkaline Phosphatase 153 U/L (35-105); Anion Gap 15.2 (5-19); Aspartate Amino Transferase 59 U/L (0-32); Blood Urea Nitrogen 15 mg/dL (8-23); Carbon Dioxide 21 mmol/L (22-29); Chloride 107 mmol/L (98-107); Globulin 2.7 g/dL (1.3-4.6); Glucose 154 mg/dL (65-115); Osmolality Calculated 292 mOsm/kg (285-295); Potassium 4.2 mmol/L (3.5-5.1); Sodium 139 mmol/L (136-145); Total Bilirubin 0.4 mg/dL (0.15-1.2); Total Protein 6.6 g/dL (6.6-8.7)
== END 2023-10-05 23:59 | disposition home or self-care (01) ==
PROVIDERS: Nurse Practitioner Family; PCP Family Medicine; Visit Provider Internal Medicine Medical Oncology
DX: C50.919 Malignant neoplasm of unspecified site of unspecified female breast (principal); C79.51 Secondary malignant neoplasm of bone; Z51.11 Encounter for antineoplastic chemotherapy; D70.9 Neutropenia, unspecified; C50.311 Malignant neoplasm of lower-inner quadrant of right female breast; Z17.0 Estrogen receptor positive status [ER+]; Z79.899 Other long term (current) drug therapy
CPT/HCPCS: 36415; 80053; 85025; 99214

== ENCOUNTER 2023-10-13 12:02 | Outpatient (CLI) | payer MEDICARE, SELFPAY | END 2023-10-13 12:03 | disposition home or self-care (01) | LOC: LAB 12:04 | PROVIDERS: PCP Family Medicine; Visit Provider Internal Medicine Hematology & Oncology | DX: D64.9 Anemia, unspecified (principal) | CPT/HCPCS: 82274 ==

== ENCOUNTER 2023-10-23 11:00 | Oncology outpatient (recurring) (ONCR) | payer MEDICARE, SELFPAY ==
[2023-10-09 09:25] VITALS: BP 123/67; PULSE 82; RESP 16; TEMP 36.8; O2SAT 100
[2023-10-09 09:38] LABS: Basophils % 0.9 %; Eosinophils # 0.2 10^3/uL (0.0-0.8); Eosinophils % 6.1 %; Hematocrit 30.8 % (36-47); Lymphocytes # 1.1 10^3/uL (0.8-4.8); Lymphocytes % 30.3 %; Mean Corpuscular HGB Conc 32.5 g/dL (30-55); Mean Corpuscular Hemoglobin 33.9 pg (27-33); Mean Corpuscular Volume 104.4 fl (85-98); Mean Platelet Volume 8.8 fL (7.4-10.4); Monocytes # 0.3 10^3/uL (0.2-0.9); Neutrophils # 1.85 10^3/uL (1.8-7.7); Neutrophils % 53.4 %; Nucleated Red Blood Cells % 0.9 %; Platelet Count 245 10^3/cmm (157-399); Red Blood Count 2.95 10^6/uL (3.85-5.65); White Blood Count 3.46 10^3/uL (3.29-11.43)
[2023-10-09 10:10] LABS: Alanine Aminotransferase 32 U/L (0-33); Albumin Level 3.8 g/dL (3.5-5.2); Alkaline Phosphatase 167 U/L (35-105); Anion Gap 17.2 (5-19); Aspartate Amino Transferase 34 U/L (0-32); Blood Urea Nitrogen 19 mg/dL (8-23); Calcium 8.1 mg/dL (8.5-10.5); Carbon Dioxide 18 mmol/L (22-29); Chloride 106 mmol/L (98-107); Ferritin 794 ng/mL (15-150); Globulin 2.8 g/dL (1.3-4.6); Glucose 107 mg/dL (65-115); Iron 161 ug/dL (37-145); Osmolality Calculated 287 mOsm/kg (285-295); Percent Saturation 76.3 % (20-50); Potassium 4.2 mmol/L (3.5-5.1); Sodium 137 mmol/L (136-145); Total Bilirubin 0.5 mg/dL (0.15-1.2); Total Iron Binding Capacity 211 mcg/dl; Total Protein 6.6 g/dL (6.6-8.7); Unsaturated Iron Binding 50 ug/dL (112-347); Vitamin B12 495 pg/mL (232-1245)
[2023-10-09 10:16] LABS: Lactate Dehydrogenase 235 U/L (135-214)
[2023-10-09 10:49] LABS: Folate Level > 20.0 ng/mL (4.8-37.3)
[2023-10-09] MEDS: fulvestrant 250 mg/5 mL Syringe 500 MG IM (11:11)
[2023-10-23 11:23] LABS: Basophils % 1.5 %; Eosinophils # 0.1 10^3/uL (0.0-0.8); Eosinophils % 3.3 %; Hematocrit 30.2 % (36-47); Lymphocytes % 35.9 %; Mean Corpuscular HGB Conc 32.8 g/dL (30-55); Mean Corpuscular Hemoglobin 34.5 pg (27-33); Mean Corpuscular Volume 105.2 fl (85-98); Mean Platelet Volume 8.4 fL (7.4-10.4); Monocytes # 0.2 10^3/uL (0.2-0.9); Monocytes % 8.1 %; Neutrophils # 1.39 10^3/uL (1.8-7.7); Neutrophils % 50.8 %; Nucleated Red Blood Cells % 1.1 %; Platelet Count 189 10^3/cmm (157-399); Red Blood Count 2.87 10^6/uL (3.85-5.65); Red Cell Distribution Width 20.5 % (12.1-15.1); White Blood Count 2.73 10^3/uL (3.29-11.43)
[2023-10-23 11:39] LABS: Alanine Aminotransferase 28 U/L (0-33); Alkaline Phosphatase 223 U/L (35-105); Anion Gap 15.6 (5-19); Aspartate Amino Transferase 33 U/L (0-32); Blood Urea Nitrogen 19 mg/dL (8-23); Calcium 8.8 mg/dL (8.5-10.5); Carbon Dioxide 21 mmol/L (22-29); Chloride 107 mmol/L (98-107); Globulin 2.7 g/dL (1.3-4.6); Glucose 124 mg/dL (65-115); Osmolality Calculated 292 mOsm/kg (285-295); Potassium 4.6 mmol/L (3.5-5.1); Sodium 139 mmol/L (136-145); Total Bilirubin 0.4 mg/dL (0.15-1.2); Total Protein 6.7 g/dL (6.6-8.7)
== END 2023-11-05 23:59 | disposition home or self-care (01) ==
PROVIDERS: Internal Medicine Hematology & Oncology; Nurse Practitioner Family; PCP Family Medicine; Visit Provider Internal Medicine Medical Oncology
DX: C50.911 Malignant neoplasm of unspecified site of right female breast (principal)
CPT/HCPCS: 36415; 80053; 82607; 82728; 82746; 83540; 83550; 83615; 85025; 86300; 99214; J9395

== ENCOUNTER → 2023-10-28 13:34 | Outpatient (BNVA) | payer MEDICARE, SELFPAY | PROVIDERS: PCP Family Medicine; Referring Provider Internal Medicine Medical Oncology; Visit Provider Surgery | DX: D64.9 Anemia, unspecified (principal); K92.2 Gastrointestinal hemorrhage, unspecified | CPT/HCPCS: 99204 ==

== ENCOUNTER 2023-11-20 13:15 | Oncology outpatient (recurring) (ONCR) | payer MEDICARE, SELFPAY ==
[2023-11-06 10:28] LABS: Basophils # 0.1 10^3/uL (0.0-0.1); Eosinophils # 0.1 10^3/uL (0.0-0.8); Lymphocytes # 0.8 10^3/uL (0.8-4.8); Lymphocytes % 30.4 %; Mean Corpuscular HGB Conc 32.8 g/dL (30-55); Mean Corpuscular Hemoglobin 34.5 pg (27-33); Mean Corpuscular Volume 105.3 fl (85-98); Mean Platelet Volume 8.7 fL (7.4-10.4); Monocytes # 0.2 10^3/uL (0.2-0.9); Monocytes % 6.1 %; Neutrophils # 1.46 10^3/uL (1.8-7.7); Neutrophils % 59.1 %; Nucleated Red Blood Cells % 1.2 %; Platelet Count 255 10^3/cmm (157-399); Red Blood Count 3.04 10^6/uL (3.85-5.65); Red Cell Distribution Width 20.3 % (12.1-15.1); White Blood Count 2.47 10^3/uL (3.29-11.43)
[2023-11-06 11:12] LABS: Alanine Aminotransferase 26 U/L (0-33); Albumin Level 3.8 g/dL (3.5-5.2); Alkaline Phosphatase 227 U/L (35-105); Aspartate Amino Transferase 28 U/L (0-32); Blood Urea Nitrogen 23 mg/dL (8-23); Calcium 8.2 mg/dL (8.5-10.5); Carbon Dioxide 20 mmol/L (22-29); Chloride 105 mmol/L (98-107); Creatinine Clr Calc Pharmacy 31.6469; Ferritin 783 ng/mL (15-150); Globulin 2.8 g/dL (1.3-4.6); Glucose 147 mg/dL (65-115); Iron 154 ug/dL (37-145); Osmolality Calculated 288 mOsm/kg (285-295); Percent Saturation 72.9 % (20-50); Sodium 136 mmol/L (136-145); Total Bilirubin 0.4 mg/dL (0.15-1.2); Total Iron Binding Capacity 211 mcg/dl; Total Protein 6.6 g/dL (6.6-8.7); Unsaturated Iron Binding 57 ug/dL (112-347)
[2023-11-06 11:34] LABS: CA 15-3 366.3 U/mL (0-25)
[2023-11-06] MEDS: fulvestrant 250 mg/5 mL Syringe 500 MG IM (11:49)
[2023-11-06 11:50] VITALS: BP 124/79; PULSE 78; RESP 18; TEMP 36.1; O2SAT 98
[2023-11-06 12:34] LABS: Calcium 8.4 mg/dL (8.5-10.5)
[2023-11-06 12:41] LABS: Parathyroid Hormone 231.6 pg/mL (15-65)
[2023-11-06 12:49] LABS: 25 Hydroxy Vitamin D 23 ng/mL (30-100)
[2023-11-07 13:00] LABS: CA 27.29 25 U/mL (<38)
[2023-11-20 13:05] LABS: Hematocrit 31.1 % (36-47); Lymphocytes # 0.9 10^3/uL (0.8-4.8); Lymphocytes % 17.5 %; Mean Corpuscular HGB Conc 32.2 g/dL (30-55); Mean Corpuscular Volume 105.8 fl (85-98); Mean Platelet Volume 8.9 fL (7.4-10.4); Monocytes # 0.3 10^3/uL (0.2-0.9); Monocytes % 6.6 %; Neutrophils # 3.88 10^3/uL (1.8-7.7); Neutrophils % 75.3 %; Nucleated Red Blood Cells % 0.8 %; Platelet Count 240 10^3/cmm (157-399); Red Blood Count 2.94 10^6/uL (3.85-5.65); Red Cell Distribution Width 21.1 % (12.1-15.1); White Blood Count 5.15 10^3/uL (3.29-11.43)
[2023-11-20 13:16] LABS: Alanine Aminotransferase 21 U/L (0-33); Albumin Level 3.8 g/dL (3.5-5.2); Alkaline Phosphatase 182 U/L (35-105); Anion Gap 13.8 (5-19); Aspartate Amino Transferase 25 U/L (0-32); Blood Urea Nitrogen 23 mg/dL (8-23); Calcium 8.4 mg/dL (8.5-10.5); Carbon Dioxide 21 mmol/L (22-29); Chloride 104 mmol/L (98-107); Creatinine Clr Calc Pharmacy 34.2841; Globulin 2.7 g/dL (1.3-4.6); Glucose 144 mg/dL (65-115); Osmolality Calculated 286 mOsm/kg (285-295); Potassium 3.8 mmol/L (3.5-5.1); Sodium 135 mmol/L (136-145); Total Bilirubin 0.3 mg/dL (0.15-1.2); Total Protein 6.5 g/dL (6.6-8.7)
== END 2023-12-04 23:59 | disposition home or self-care (01) ==
PROVIDERS: Nurse Practitioner Family; PCP Family Medicine; Visit Provider Internal Medicine Medical Oncology
DX: C50.911 Malignant neoplasm of unspecified site of right female breast; Z53.9 Procedure and treatment not carried out, unspecified reason
CPT/HCPCS: 36415; 80053; 82306; 82310; 82728; 83540; 83550; 83970; 85025; 86300; 99214; J9395

== ENCOUNTER 2023-12-25 14:37 | Oncology outpatient (recurring) (ONCR) | payer MEDICARE, SELFPAY ==
[2023-12-11 09:20] LABS: Basophils % 1.1 %; Eosinophils # 0.1 10^3/uL (0.0-0.8); Eosinophils % 1.9 %; Hematocrit 31.6 % (36-47); Lymphocytes % 36.4 %; Mean Corpuscular HGB Conc 32.9 g/dL (30-55); Mean Corpuscular Hemoglobin 34.7 pg (27-33); Mean Corpuscular Volume 105.3 fl (85-98); Mean Platelet Volume 8.7 fL (7.4-10.4); Monocytes # 0.3 10^3/uL (0.2-0.9); Monocytes % 9.8 %; Neutrophils # 1.33 10^3/uL (1.8-7.7); Neutrophils % 50.4 %; Nucleated Red Blood Cells % 1.1 %; Platelet Count 183 10^3/cmm (157-399); Red Cell Distribution Width 20.5 % (12.1-15.1); White Blood Count 2.64 10^3/uL (3.29-11.43)
[2023-12-11 09:58] LABS: Alanine Aminotransferase 20 U/L (0-33); Albumin Level 3.8 g/dL (3.5-5.2); Alkaline Phosphatase 139 U/L (35-105); Anion Gap 14.4 (5-19); Aspartate Amino Transferase 29 U/L (0-32); Blood Urea Nitrogen 19 mg/dL (8-23); CA 15-3 297.9 U/mL (0-25); Carbon Dioxide 23 mmol/L (22-29); Chloride 106 mmol/L (98-107); Globulin 2.6 g/dL (1.3-4.6); Glucose 103 mg/dL (65-115); Osmolality Calculated 291 mOsm/kg (285-295); Potassium 4.4 mmol/L (3.5-5.1); Sodium 139 mmol/L (136-145); Total Bilirubin 0.4 mg/dL (0.15-1.2); Total Protein 6.4 g/dL (6.6-8.7)
[2023-12-11] MEDS: denosumab 120 mg SDV SUBCUT (12:35)
[2023-12-11 12:37] LABS: Iron 130 ug/dL (37-145); Percent Saturation 60.7 % (20-50); Total Iron Binding Capacity 214 mcg/dl; Unsaturated Iron Binding 84 ug/dL (112-347)
[2023-12-11] MEDS: fulvestrant 250 mg/5 mL Syringe 500 MG IM (12:39)
[2023-12-11 12:43] VITALS: BP 151/76; PULSE 69; RESP 18; TEMP 36.6; O2SAT 98
[2023-12-25 15:01] LABS: Basophils # 0.1 10^3/uL (0.0-0.1); Basophils % 1.6 %; Eosinophils # 0.1 10^3/uL (0.0-0.8); Eosinophils % 1.6 %; Hematocrit 32.2 % (36-47); Lymphocytes # 1.3 10^3/uL (0.8-4.8); Lymphocytes % 40.6 %; Mean Corpuscular HGB Conc 33.5 g/dL (30-55); Mean Corpuscular Hemoglobin 35.1 pg (27-33); Mean Corpuscular Volume 104.5 fl (85-98); Mean Platelet Volume 8.6 fL (7.4-10.4); Monocytes # 0.3 10^3/uL (0.2-0.9); Monocytes % 10.7 %; Neutrophils # 1.39 10^3/uL (1.8-7.7); Neutrophils % 45.2 %; Nucleated Red Blood Cells # 0.1 /100WBC; Nucleated Red Blood Cells % 1.6 %; Platelet Count 243 10^3/cmm (157-399); Red Blood Count 3.08 10^6/uL (3.85-5.65); Red Cell Distribution Width 20.1 % (12.1-15.1); White Blood Count 3.08 10^3/uL (3.29-11.43)
[2023-12-25 15:10] LABS: Alanine Aminotransferase 20 U/L (0-33); Alkaline Phosphatase 151 U/L (35-105); Aspartate Amino Transferase 30 U/L (0-32); Blood Urea Nitrogen 20 mg/dL (8-23); Carbon Dioxide 22 mmol/L (22-29); Chloride 108 mmol/L (98-107); Creatinine Clr Calc Pharmacy 32.2567; Globulin 2.7 g/dL (1.3-4.6); Glucose 83 mg/dL (65-115); Osmolality Calculated 294 mOsm/kg (285-295); Sodium 141 mmol/L (136-145); Total Bilirubin 0.3 mg/dL (0.15-1.2); Total Protein 6.7 g/dL (6.6-8.7)
[2023-12-25 15:32] LABS: Anion Gap 14.9 (5-19); Potassium 3.9 mmol/L (3.5-5.1)
== END 2024-01-04 23:59 | disposition home or self-care (01) ==
PROVIDERS: Nurse Practitioner Family; PCP Family Medicine; Visit Provider Internal Medicine Medical Oncology
DX: C79.51 Secondary malignant neoplasm of bone; Z53.9 Procedure and treatment not carried out, unspecified reason
CPT/HCPCS: 36415; 80053; 83540; 83550; 85025; 86300; 96372; 99214; J0897; J9395

== ENCOUNTER 2024-01-08 12:17 | Oncology outpatient (recurring) (ONCR) | payer MEDICARE, SELFPAY ==
[2024-01-08 12:39] LABS: Eosinophils # 0.1 10^3/uL (0.0-0.8); Eosinophils % 2.3 %; Hematocrit 31.7 % (36-47); Lymphocytes % 32.6 %; Mean Corpuscular HGB Conc 32.8 g/dL (30-55); Mean Corpuscular Volume 106.7 fl (85-98); Mean Platelet Volume 8.6 fL (7.4-10.4); Monocytes # 0.3 10^3/uL (0.2-0.9); Neutrophils # 1.66 10^3/uL (1.8-7.7); Neutrophils % 53.5 %; Platelet Count 221 10^3/cmm (157-399); Red Blood Count 2.97 10^6/uL (3.85-5.65); Red Cell Distribution Width 20.1 % (12.1-15.1)
[2024-01-08 13:09] LABS: Alanine Aminotransferase 23 U/L (0-33); Alkaline Phosphatase 135 U/L (35-105); Anion Gap 14.2 (5-19); Aspartate Amino Transferase 30 U/L (0-32); Blood Urea Nitrogen 24 mg/dL (8-23); CA 15-3 257.4 U/mL (0-25); Carbon Dioxide 23 mmol/L (22-29); Chloride 106 mmol/L (98-107); Globulin 2.4 g/dL (1.3-4.6); Glucose 75 mg/dL (65-115); Osmolality Calculated 291 mOsm/kg (285-295); Potassium 4.2 mmol/L (3.5-5.1); Sodium 139 mmol/L (136-145); Total Bilirubin 0.4 mg/dL (0.15-1.2); Total Protein 6.4 g/dL (6.6-8.7)
[2024-01-08] MEDS: denosumab 120 mg SDV SUBCUT (15:20)
[2024-01-08] MEDS: fulvestrant 250 mg/5 mL Syringe 500 MG IM (15:28)
== END 2024-02-03 23:59 | disposition home or self-care (01) ==
PROVIDERS: Nurse Practitioner Family; PCP Family Medicine; Visit Provider Internal Medicine Medical Oncology
DX: C79.51 Secondary malignant neoplasm of bone (principal); Z53.9 Procedure and treatment not carried out, unspecified reason; C50.911 Malignant neoplasm of unspecified site of right female breast; D70.9 Neutropenia, unspecified; C50.311 Malignant neoplasm of lower-inner quadrant of right female breast; Z17.0 Estrogen receptor positive status [ER+]; Z79.899 Other long term (current) drug therapy; C50.919 Malignant neoplasm of unspecified site of unspecified female breast
CPT/HCPCS: 36415; 80053; 85025; 86300; 96372; 96402; 99214; J0897; J9395

== ENCOUNTER 2024-01-28 05:59 | Day surgery (SDC) | payer MEDICARE, SELFPAY ==
[2024-01-28 06:14] VITALS: BP 131/77; PULSE 80; RESP 18; TEMP 36.8; O2SAT 97; BMI 24.6
[2024-01-28] MEDS: sodium chloride 0.9% 1,000 ML 30 ML IV (06:17)
--- NOTE | 2024-01-28 06:35 | ANES.PREANE2 ---
Pre-Anesthetic Assessment Height/Weight: Height 1.52 m Weight 57.153 kg Temp Pulse Resp BP Pulse Ox O2 Del Method 98.3 F 80 18 131/77 97 Room Air 01/28/24 06:14 01/28/24 06:14 01/28/24 06:14 01/28/24 06:14 01/28/24 06:14 01/28/24 06:14 Preop Diagnosis: Anemia/GI bleed Operation Date: 01/28/24 07:00 Proposed Procedures p EGD(Not Applicable) - Johan Pagan DO s Colonoscopy(Not Applicable) - Johan Pagan DO Familial anesthetic complications: None Was Beta Evelina taken within 24 hours: N/A Was Clonidine taken within 24 hours: N/A Last intake: Intake Last Liquid Date 01/27/24 Last Liquid Time 20:00 Last Solid Date 01/26/24 Last Solid Time 20:00 Social No alcohol and No tobacco Exam alert, oriented x 3, clear to auscultation bilaterally and regular rate & rhythm Airway Submandibular: within normal limits Cervical ROM: within normal limits Mallampati: Class II Dentition: full Comments: Comments: Crowns History/ROS No significant history except as noted and No significant complaints Pulmonary Cough and Exertional Dyspnea CV/HEM Anemia Chronic Renal Insufficiency Hepatic None reported GI Gastroesophageal Reflux Disease and Hiatal Hernia Metabolic None reported Musc/skel Fibromyalgia, Lower Back Pain and Osteoarthritis/DJD Neuropsych Anxiety, Depression, Headache and Neuropathy Anesthetic Plan ASA status: 3 Other: Breast cancer Medications/Allergies Home Medications Medication Instructions Recorded Confirmed Last Taken Type fluoxetine 40 mg capsule (Prozac) 40 mg PO DAILY 07/14/20 01/26/24 01/26/24 History acetaminophen 650 mg 650 mg PO Q8H PRN Pain 08/01/20 01/28/24 01/25/24 History tablet,extended release (Tylenol Arthritis Pain) calcium w/ vitamin D 3 tab PO DAILY 08/01/20 01/26/24 01/26/24 History lidocaine-prilocaine 2.5 %-2.5 % 1 applic topical ONCE PRN pain #30 05/27/23 01/26/24 Unknown Rx topical cream grams prochlorperazine maleate 10 mg 10 mg PO Q4H PRN Mild Nausea #30 06/24/23 01/26/24 Unknown Rx tablet (Compazine) tabs camphor 3.1 %-methyl salicylate 10 1 patch topical DAILY PRN pain 08/07/23 01/26/24 01/25/24 History %-menthol 6 % topical patch (Salonpas) pantoprazole 40 mg tablet,delayed 40 mg PO BID 6 weeks #84 tabs 12/19/23 01/26/24 01/26/24 Rx release (Protonix) abemaciclib 100 mg tablet 100 mg PO BID 01/26/24 01/28/24 01/27/24 History (Verzenio) folic acid 1 mg tablet 1 mg PO DAILY 01/26/24 01/26/24 01/26/24 History Allergies Allergy/AdvReac Type Severity Reaction Status Date / Time contact metal agent Allergy Severe ALGY-Rash Verified 01/26/24 09:21 Iodinated Contrast Media Allergy Severe ALGY-Hives Verified 01/26/24 09:21 Iodine and Iodide Containing Allergy hives/hard Verified 01/26/24 09:21 Produc to breathe Current Medications Generic Name Dose Route Start Last Admin Trade Name Freq PRN Reason Stop Dose Admin Sodium Chloride 1,000 mls @ 30 mls/hr 01/28/24 06:15 01/28/24 06:17 Sodium Chloride 0.9% IV 01/29/24 06:14 30 mls/hr .Q24H JUNO Administration PFSH Anesthesia Medical History Anemia Radiation-induced angiosarcoma of breast Surgical History History of mastectomy Family History Grandmother CAD (coronary artery disease) Denies family history of Anesthesia complication Bleeding disorder Family history of premature coronary artery disease Cancer Social History Smoking and tobacco/nicotine status: former use of tobacco/nicotine Quit status (tobacco/nicotine): has quit using Year quit tobacco: 1991 Former quit date comment: smoked x 20 years Alcohol intake: never Substance/Drug Use: never Lives independently: Yes Data Anesthesia Cardiac Studies: No Data to Display
--- NOTE | 2024-01-28 07:02 | PM.HP ---
Providers/Chief Complaint Primary Care Provider: Carolyn Pires DO Chief Complaint: D64.9, K92.2 History of Present Illness Yessenia George is a 78 year old female Review of Systems General: Reports: 10 or more systems reviewed and unremarkable except in HPI and below Medications/Allergies Home Medications Medication Instructions Recorded Confirmed Last Taken Type fluoxetine 40 mg capsule (Prozac) 40 mg PO DAILY 07/14/20 01/26/24 01/26/24 History acetaminophen 650 mg 650 mg PO Q8H PRN Pain 08/01/20 01/28/24 01/25/24 History tablet,extended release (Tylenol Arthritis Pain) calcium w/ vitamin D 3 tab PO DAILY 08/01/20 01/26/24 01/26/24 History lidocaine-prilocaine 2.5 %-2.5 % 1 applic topical ONCE PRN pain #30 05/27/23 01/26/24 Unknown Rx topical cream grams prochlorperazine maleate 10 mg 10 mg PO Q4H PRN Mild Nausea #30 06/24/23 01/26/24 Unknown Rx tablet (Compazine) tabs camphor 3.1 %-methyl salicylate 10 1 patch topical DAILY PRN pain 08/07/23 01/26/24 01/25/24 History %-menthol 6 % topical patch (Salonpas) pantoprazole 40 mg tablet,delayed 40 mg PO BID 6 weeks #84 tabs 12/19/23 01/26/24 01/26/24 Rx release (Protonix) abemaciclib 100 mg tablet 100 mg PO BID 01/26/24 01/28/24 01/27/24 History (Verzenio) folic acid 1 mg tablet 1 mg PO DAILY 01/26/24 01/26/24 01/26/24 History Allergies Allergy/AdvReac Type Severity Reaction Status Date / Time contact metal agent Allergy Severe ALGY-Rash Verified 01/26/24 09:21 Iodinated Contrast Media Allergy Severe ALGY-Hives Verified 01/26/24 09:21 Iodine and Iodide Containing Allergy hives/hard Verified 01/26/24 09:21 Produc to breathe PFSH Acute PFSH: Medical History Anemia Radiation-induced angiosarcoma of breast Surgical History History of mastectomy Family History Grandmother CAD (coronary artery disease) Denies family history of Anesthesia complication Bleeding disorder Family history of premature coronary artery disease Cancer Social History Smoking and tobacco/nicotine status: former use of tobacco/nicotine Quit status (tobacco/nicotine): has quit using Year quit tobacco: 1991 Former quit date comment: smoked x 20 years Alcohol intake: never Substance/Drug Use: never Lives independently: Yes Vitals/I&O/Wt Last Vital Signs Temp 98.3 F 01/28/24 06:14 Pulse 80 01/28/24 06:14 Resp 18 01/28/24 06:14 BP 131/77 01/28/24 06:14 Pulse Ox 97 01/28/24 06:14 O2 Del Method Room Air 01/28/24 06:14 Weight last 48 hrs Weight 126 lb A&P Assessment and plan (1) GI bleed: (2) Anemia: (3) GERD (gastroesophageal reflux disease): Plan EGD and colonoscopy Attestations Medical Necessity Statement*: Home Coding Level of Care Code Acute Code for g Fwd Diagnoses GI bleed K92.2 Anemia D64.9 GERD (gastroesophageal reflux disease) K21.9
[2024-01-28 07:28] VITALS: BP 91/48; PULSE 59; RESP 14; TEMP 36.7; O2SAT 97
[2024-01-28 07:41] VITALS: BP 118/74; PULSE 68; RESP 16; O2SAT 95
--- NOTE | 2024-01-28 08:05 | ANE.PACU2 ---
Inpatient post-anesthesia follow up: Airway intact: Yes Vital signs: Temperature 98.0 F Pulse Rate 68 Respiratory Rate 16 Blood Pressure 118/74 Pulse Oximetry 95 Oxygen Delivery Me thod Room Air Oxygen Flow Rate Fraction of Inspir ed Oxygen Hydration adequate: Yes Nausea and vomiting: No Pain level: 1 Mental status: Baseline
== END 2024-01-28 08:07 | disposition home or self-care (01) ==
PROVIDERS: PCP Family Medicine; Visit Provider Surgery
PROC: 0DJ08ZZ Inspection of Upper Intestinal Tract, Via Natural or Artificial Opening Endoscopic (ICD-10-PCS; principal; 2024-01-28 07:00)
PROC: 0DJD8ZZ Inspection of Lower Intestinal Tract, Via Natural or Artificial Opening Endoscopic (ICD-10-PCS; CPT 45378; 2024-01-28 07:00)
DX: D64.9 Anemia, unspecified (principal); K21.9 Gastro-esophageal reflux disease without esophagitis; Z87.891 Personal history of nicotine dependence; K57.30 Diverticulosis of large intestine without perforation or abscess without bleeding; K64.8 Other hemorrhoids; M79.7 Fibromyalgia; K29.50 Unspecified chronic gastritis without bleeding
CPT/HCPCS: 43239; 45378; 88305; J2704; J7030; J9999

== ENCOUNTER → 2024-02-09 11:30 | Outpatient (BNVA) | payer MEDICARE, SELFPAY | PROVIDERS: PCP Family Medicine; Visit Provider Surgery | DX: Z09 Encounter for follow-up examination after completed treatment for conditions other than malignant neoplasm (principal) | CPT/HCPCS: 99214 ==

== ENCOUNTER 2024-03-04 09:50 | Oncology outpatient (recurring) (ONCR) | payer MEDICARE, SELFPAY ==
[2024-02-05 12:59] LABS: Eosinophils # 0.1 10^3/uL (0.0-0.8); Eosinophils % 3.4 %; Hematocrit 31.2 % (36-47); Lymphocytes # 0.9 10^3/uL (0.8-4.8); Lymphocytes % 29.5 %; Mean Corpuscular HGB Conc 32.1 g/dL (30-55); Mean Corpuscular Hemoglobin 34.1 pg (27-33); Mean Corpuscular Volume 106.5 fl (85-98); Monocytes # 0.3 10^3/uL (0.2-0.9); Monocytes % 11.6 %; Neutrophils # 1.58 10^3/uL (1.8-7.7); Neutrophils % 54.2 %; Nucleated Red Blood Cells % 1.4 %; Platelet Count 238 10^3/cmm (157-399); Red Blood Count 2.93 10^6/uL (3.85-5.65); Red Cell Distribution Width 19.6 % (12.1-15.1); White Blood Count 2.92 10^3/uL (3.29-11.43)
[2024-02-05 13:26] LABS: Alanine Aminotransferase 18 U/L (0-33); Alkaline Phosphatase 107 U/L (35-105); Anion Gap 11.4 (5-19); Aspartate Amino Transferase 33 U/L (0-32); Blood Urea Nitrogen 21 mg/dL (8-23); CA 15-3 203.8 U/mL (0-25); Calcium 8.4 mg/dL (8.5-10.5); Carbon Dioxide 24 mmol/L (22-29); Chloride 106 mmol/L (98-107); Globulin 2.6 g/dL (1.3-4.6); Glucose 113 mg/dL (65-115); Osmolality Calculated 288 mOsm/kg (285-295); Potassium 4.4 mmol/L (3.5-5.1); Sodium 137 mmol/L (136-145); Total Bilirubin 0.3 mg/dL (0.15-1.2); Total Protein 6.6 g/dL (6.6-8.7)
[2024-02-05] MEDS: denosumab 120 mg SDV SUBCUT (14:50)
[2024-02-05] MEDS: fulvestrant 250 mg/5 mL Syringe 500 MG IM (14:50)
[2024-03-04 10:10] LABS: Basophils % 1.4 %; Eosinophils # 0.1 10^3/uL (0.0-0.8); Eosinophils % 2.8 %; Hematocrit 31.4 % (36-47); Lymphocytes # 0.8 10^3/uL (0.8-4.8); Lymphocytes % 28.8 %; Mean Corpuscular HGB Conc 32.5 g/dL (30-55); Mean Corpuscular Hemoglobin 34.2 pg (27-33); Mean Corpuscular Volume 105.4 fl (85-98); Mean Platelet Volume 8.4 fL (7.4-10.4); Monocytes # 0.3 10^3/uL (0.2-0.9); Monocytes % 8.9 %; Neutrophils # 1.61 10^3/uL (1.8-7.7); Neutrophils % 57.4 %; Nucleated Red Blood Cells # 0.1 /100WBC; Nucleated Red Blood Cells % 2.1 %; Platelet Count 217 10^3/cmm (157-399); Red Blood Count 2.98 10^6/uL (3.85-5.65); Red Cell Distribution Width 19.8 % (12.1-15.1); White Blood Count 2.81 10^3/uL (3.29-11.43)
[2024-03-04 10:39] LABS: Alanine Aminotransferase 18 U/L (0-33); Albumin Level 3.7 g/dL (3.5-5.2); Alkaline Phosphatase 91 U/L (35-105); Anion Gap 14.3 (5-19); Aspartate Amino Transferase 31 U/L (0-32); Blood Urea Nitrogen 22 mg/dL (8-23); CA 15-3 190.5 U/mL (0-25); Calcium 8.1 mg/dL (8.5-10.5); Carbon Dioxide 22 mmol/L (22-29); Chloride 105 mmol/L (98-107); Creatinine Clr Calc Pharmacy 28.1889; Globulin 2.7 g/dL (1.3-4.6); Glucose 114 mg/dL (65-115); Osmolality Calculated 288 mOsm/kg (285-295); Potassium 4.3 mmol/L (3.5-5.1); Sodium 137 mmol/L (136-145); Total Bilirubin 0.4 mg/dL (0.15-1.2); Total Protein 6.4 g/dL (6.6-8.7)
[2024-03-04] MEDS: denosumab 120 mg SDV SUBCUT (14:05)
[2024-03-04] MEDS: fulvestrant 250 mg/5 mL Syringe 500 MG IM (14:06)
--- NOTE | 2024-03-04 14:21 | XR_ITS ---
WS: [id number] Exam: XR chest 3V [id number] Date/Time of Exam: 03/04/2024 2:31 PM Reason For Exam: cough AP lateral and both decubitus views of the chest are submitted for evaluation. COMPARISON: 1. 07/25/2011. There are interstitial infiltrates noted throughout the mid and lower lung zones bilaterally. These c hanges might be acute or chronic. The heart is top limits normal size. No pleural effusions or pneumo thorax. The RIGHT breast is surgically absent. Single surgical clip seen along the upper lateral RIGH T rib cage. Bony structures are intact. Degenerative changes of both shoulders. XR/XR chest 3V [id number] IMPRESSION: 1. Interstitial infiltrates noted in the mid and lower lung zones bilaterally. This could represent chronic change or active pneumonia. Post COVID changes deni ht have this appearance also. 2. No pleural effusions are identified. 3. Status post RIGHT mastectomy.
== END 2024-03-05 23:59 | disposition home or self-care (01) ==
PROVIDERS: Nurse Practitioner Family; PCP Family Medicine; Visit Provider Internal Medicine Medical Oncology
DX: Z53.9 Procedure and treatment not carried out, unspecified reason; Z51.11 Encounter for antineoplastic chemotherapy; C79.51 Secondary malignant neoplasm of bone; Z92.3 Personal history of irradiation; D64.9 Anemia, unspecified; C79.2 Secondary malignant neoplasm of skin; Z85.3 Personal history of malignant neoplasm of breast; Z79.899 Other long term (current) drug therapy; Z91.89 Other specified personal risk factors, not elsewhere classified; R05.9 Cough, unspecified
CPT/HCPCS: 36415; 71047; 80053; 85025; 86300; 96372; 96401; 96402; 99214; J0897; J9395

== ENCOUNTER 2024-03-08 15:38 | Outpatient (CLI) | payer MEDICARE, SELFPAY ==
--- NOTE | 2024-03-08 15:46 | CT_ITS ---
WS: [id number] CT chest wo con [id number] HISTORY: interstitial infiltrates noted on CT scan TECHNIQUE: Axial imaging performed through the thorax. Coronal and sagittal reformats are submitted. All CT scans at [facility] use at least one of these dose optimization techniques: automated exposure control; mA and/or kV adjustment per patient size (includes targeted exams where dose is mat ched to clinical indication); or iterative reconstruction. CONTRAST: None DLP: 213.41 mGy.cm COMPARISON: PET/CT 09/16/2023, chest radiograph 03/04/2024, Lungs and central airway: Mild volume loss. Bilateral areas of pleural thickening and interstitial re ticular nodular opacifications. Greatest throughout the RIGHT lung. There is no well-formed discrete mass. Similar findings were noted on the PET/CT of 09/16/2023. No obvious progression. Pleura: No pleural effusion. Heart and pericardium: Mild cardiomegaly. No pericardial effusion. Mediastinum and ruth: On this unenhanced image no adenopathy is identified. Lack of contrast limits e valuation for central nodes. Vessels: Mild atherosclerosis aorta. No aneurysm. Normal size pulmonary artery. Chest wall and lower neck: Prior RIGHT mastectomy. The soft tissue thickening at the mastectomy site is similar to the PET/CT. No recurrent mass is identified. No axillary lymph nodes. Upper abdomen: Bilateral parapelvic cysts no adrenal mass. Negative liver. Osseous structures: Extensive sclerotic lesions are noted within all visualized bones of the chest. T hese have been previously described. Consistent with previously described treated osseous metastatic disease. No pathological fracture identified. CT/CT chest wo con [id number] IMPRESSION: 1. Interstitial pulmonary fibrosis with no superimposed acute pneumonia. No pu lmonary mass. These findings were previously described by PET/CT imaging also. 2. No mediastinal or hilar adenopathy identified on this examination without I V contrast. 3. Status post RIGHT mastectomy. No recurrent mass at the mastectomy site. 4. Extensive osseous sclerotic bone disease consistent with treated metastatic disease as previously described.
== END 2024-03-08 15:39 | disposition home or self-care (01) ==
LOC: RAD 15:38
PROVIDERS: PCP Family Medicine; Visit Provider Nurse Practitioner Family
DX: R05.9 Cough, unspecified (principal)
CPT/HCPCS: 71250

== ENCOUNTER 2024-04-01 09:23 | Oncology outpatient (recurring) (ONCR) | payer MEDICARE, SELFPAY ==
[2024-04-01 09:47] LABS: Basophils % 0.6 %; Eosinophils # 0.1 10^3/uL (0.0-0.8); Eosinophils % 3.3 %; Hematocrit 31.9 % (36-47); Lymphocytes # 0.9 10^3/uL (0.8-4.8); Lymphocytes % 24.2 %; Mean Corpuscular HGB Conc 32.3 g/dL (30-55); Mean Corpuscular Hemoglobin 33.9 pg (27-33); Mean Corpuscular Volume 104.9 fl (85-98); Mean Platelet Volume 8.2 fL (7.4-10.4); Monocytes # 0.4 10^3/uL (0.2-0.9); Monocytes % 11.6 %; Neutrophils # 2.16 10^3/uL (1.8-7.7); Neutrophils % 59.5 %; Nucleated Red Blood Cells % 1.1 %; Platelet Count 202 10^3/cmm (157-399); Red Blood Count 3.04 10^6/uL (3.85-5.65); Red Cell Distribution Width 19.7 % (12.1-15.1); White Blood Count 3.63 10^3/uL (3.29-11.43)
[2024-04-01 10:15] LABS: Alanine Aminotransferase 18 U/L (0-33); Albumin Level 3.7 g/dL (3.5-5.2); Alkaline Phosphatase 78 U/L (35-105); Anion Gap 13.4 (5-19); Aspartate Amino Transferase 31 U/L (0-32); Blood Urea Nitrogen 19 mg/dL (8-23); Calcium 8.2 mg/dL (8.5-10.5); Carbon Dioxide 23 mmol/L (22-29); Chloride 106 mmol/L (98-107); Globulin 2.7 g/dL (1.3-4.6); Glucose 102 mg/dL (65-115); Osmolality Calculated 288 mOsm/kg (285-295); Potassium 4.4 mmol/L (3.5-5.1); Sodium 138 mmol/L (136-145); Total Bilirubin 0.4 mg/dL (0.15-1.2); Total Protein 6.4 g/dL (6.6-8.7)
[2024-04-01 10:48] LABS: CA 15-3 189.9 U/mL (0-25)
[2024-04-01 11:56] VITALS: BP 125/73; PULSE 62; RESP 16; O2SAT 96
[2024-04-01] MEDS: denosumab 120 mg SDV SUBCUT (11:57)
[2024-04-01] MEDS: fulvestrant 250 mg/5 mL Syringe 500 MG IM (11:58)
== END 2024-04-04 23:59 | disposition home or self-care (01) ==
PROVIDERS: Nurse Practitioner Family; PCP Family Medicine; Visit Provider Internal Medicine Medical Oncology
DX: C79.51 Secondary malignant neoplasm of bone (principal); C50.911 Malignant neoplasm of unspecified site of right female breast; Z17.0 Estrogen receptor positive status [ER+]; Z79.899 Other long term (current) drug therapy; Z79.818 Long term (current) use of other agents affecting estrogen receptors and estrogen levels; Z51.11 Encounter for antineoplastic chemotherapy; Z87.891 Personal history of nicotine dependence; Z92.3 Personal history of irradiation; Z90.11 Acquired absence of right breast and nipple
CPT/HCPCS: 36415; 80053; 85025; 86300; 96372; 99214; J0897; J9395

== ENCOUNTER 2024-04-06 10:12 | Outpatient (CLI) | payer MEDICARE, SELFPAY ==
--- NOTE | 2024-04-06 10:00 | PETR_ITS ---
PROCEDURE INFORMATION: Exam: PET/CT Skull Base to Mid-thigh Exam date and time: 04/06/2024 10:35 AM Age: 78 years old Clinical indication: Condition or disease; Primary cancer: Breast cancer; Follow-up oncological assessment; Prior surgery; Surgery date: 6+ months; Surgery type: Right breast; Additional info: Surveillance LABS AND CLINICAL REPORTS: Glucose: 136 mg/dl Treatment strategy for malignancy (PET staging): Restaging (PS) TECHNIQUE: Imaging protocol: Following at least four-hour fasting and following the injection of radiopharmaceutical, low dose CT images were obtained. Then, PET images were obtained. Attenuation corrected images were constructed using the CT scan. Fused images of PET and CT were reviewed. The standardized uptake values (SUV) reported below are maximum values within a region of interest, expressed in gm/ml. Exam includes orbital meatal line to mid-thigh. Radiopharmaceutical: 13.06 mCi F-18 FDG (Fluorodeoxyglucose), IV. Time of imaging post radiopharmaceutical administration: 1 hour Injection site: Left antecubital COMPARISON: CT chest 03/08/2024, PT PET skulltothi SUBSEQ [id number] 09/16/2023 11:18 AM FINDINGS: Brain: Visualized brain has normal physiologic uptake. Oral cavity: There is physiologic appearing uptake within the tongue, without a definite correlating lesion on the CT images. Pharynx: No abnormal uptake. Larynx: No abnormal uptake. Lungs, pleura and trachea: Regions of ill-defined patchy pleural based streaky and patchy in the periphery of the right upper lobe and right middle lobe and anterior left upper lobe are slightly increased in the region of the posterior right upper lobe/superior segment of the right lower lobe on series 3, image 74 compared with the prior PET-CT and similar compared with 03/08/2024 without significant uptake, likely related to post treatment scarring. Moderate bullous changes in the left lower lobe are noted. Heart: Normal physiologic uptake. Mediastinal space: No abnormal uptake. Diaphragm: Small hiatal hernia. No abnormal uptake. Liver: No abnormal uptake. Gallbladder and biliary ducts: No abnormal uptake. Pancreas: No abnormal uptake. Spleen: No abnormal uptake. Adrenal glands: No abnormal uptake. Kidneys and ureters: A non radiotracer avid low-density structure arising from the inferior pole of the right kidney measures 6.8 cm in diameter on series 3, image 137 with minimal wall calcification. Ovoid regions of low density in the bilateral renal pelves are consistent with parapelvic cysts. Stomach and bowel: No abnormal uptake. Vasculature: No abnormal uptake. There are diffuse atherosclerotic changes. Lymph nodes: No abnormal uptake. No lymphadenopathy in the head, neck, chest, abdomen, pelvis, and extremities. Skeleton: Mottled areas of abnormal lucency and sclerosis throughout the osseous structures are noted without significant uptake. Previously noted elevated uptake in the medial right iliac bone currently demonstrates an SUV max 2.2 (previously 6.7) on series 3, image 170. Degenerative changes in the spine are noted. Uptake in the anterior right iliac bone demonstrates an SUV max 1.7 (previously 2.2 on series 3, image 158. Uptake within the inferior right scapula demonstrates an SUV max 1.1 (previously 1.5). No new or increased regions of uptake within the osseous structures is identified. Grade 1 spondylolisthesis of L5 on S1 is present. Primary osteoarthritic changes within the glenohumeral joints are noted. Soft tissues: Postoperative changes of right mastectomy appear similar. Uptake in the right pectoralis minor muscle demonstrates an SUV max 2.4 on series 3, image 71 (previously 1.8) without evidence of a correlating lesion on the CT images. METRICS: Mediastinal blood pool: SUV max 2.3 PET/PET skull to thigh SUBS [id number] IMPRESSION: 1. Postoperative changes of right mastectomy are noted. Slight interval increase in uptake within the right pectoralis minor muscle is noted without a correlating lesion on the CT images, likely inflammatory in nature. A malignant etiology is not favored. 2. Similar extensive distribution of osseous metastatic lesions with interval decrease in uptake compared with the prior PET-CT consistent with an interval response to therapy. 3. Regions of peripheral pleural based streaky and patchy density in the bilateral lungs appears slightly increased in the posterior right upper lobe/superior segment of the right lower lobe without elevated uptake, likely related to benign post treatment changes. 4. Similar appearance of a mildly complex right renal lesion likely representing a benign cyst. Similar bilateral renal parapelvic cysts. 5. Additional nonurgent findings as detailed above.
== END 2024-04-06 10:13 | disposition home or self-care (01) ==
LOC: RAD 10:12
PROVIDERS: PCP Family Medicine; Visit Provider Nurse Practitioner Family
DX: C50.919 Malignant neoplasm of unspecified site of unspecified female breast (principal); Z90.11 Acquired absence of right breast and nipple; N28.1 Cyst of kidney, acquired; K44.9 Diaphragmatic hernia without obstruction or gangrene; M43.16 Spondylolisthesis, lumbar region
CPT/HCPCS: 78815; A9552

== ENCOUNTER 2024-04-29 12:22 | Oncology outpatient (recurring) (ONCR) | payer MEDICARE, SELFPAY ==
[2024-04-29 12:45] LABS: Basophils # 0.1 10^3/uL (0.0-0.1); Basophils % 1.3 %; Eosinophils # 0.1 10^3/uL (0.0-0.8); Eosinophils % 2.2 %; Hematocrit 31.4 % (36-47); Lymphocytes # 1.2 10^3/uL (0.8-4.8); Lymphocytes % 32.8 %; Mean Corpuscular HGB Conc 33.4 g/dL (30-55); Mean Corpuscular Hemoglobin 34.1 pg (27-33); Mean Corpuscular Volume 101.9 fl (85-98); Mean Platelet Volume 8.9 fL (7.4-10.4); Monocytes # 0.4 10^3/uL (0.2-0.9); Monocytes % 9.9 %; Neutrophils # 1.99 10^3/uL (1.8-7.7); Neutrophils % 53.5 %; Nucleated Red Blood Cells # 0.1 /100WBC; Nucleated Red Blood Cells % 1.3 %; Platelet Count 252 10^3/cmm (157-399); Red Blood Count 3.08 10^6/uL (3.85-5.65); Red Cell Distribution Width 19.7 % (12.1-15.1); White Blood Count 3.72 10^3/uL (3.29-11.43)
[2024-04-29 13:15] LABS: Alanine Aminotransferase 26 U/L (0-33); Albumin Level 4.1 g/dL (3.5-5.2); Alkaline Phosphatase 72 U/L (35-105); Anion Gap 18.1 (5-19); Aspartate Amino Transferase 37 U/L (0-32); Blood Urea Nitrogen 26 mg/dL (8-23); CA 15-3 201.2 U/mL (0-25); Calcium 8.4 mg/dL (8.5-10.5); Carbon Dioxide 20 mmol/L (22-29); Chloride 104 mmol/L (98-107); Globulin 2.7 g/dL (1.3-4.6); Glucose 148 mg/dL (65-115); Osmolality Calculated 294 mOsm/kg (285-295); Potassium 4.1 mmol/L (3.5-5.1); Sodium 138 mmol/L (136-145); Total Bilirubin 0.7 mg/dL (0.15-1.2); Total Protein 6.8 g/dL (6.6-8.7)
[2024-04-29 13:38] LABS: Creatinine Clr Calc Pharmacy 25.8954
[2024-04-29] MEDS: denosumab 120 mg SDV SUBCUT (14:45)
[2024-04-29] MEDS: fulvestrant 250 mg/5 mL Syringe 500 MG IM (14:48)
[2024-04-29 14:56] VITALS: BP 122/78; PULSE 78; RESP 17; TEMP 36.6; O2SAT 98
== END 2024-05-05 23:59 | disposition home or self-care (01) ==
PROVIDERS: PCP Family Medicine; Visit Provider Internal Medicine Medical Oncology
DX: C50.911 Malignant neoplasm of unspecified site of right female breast (principal); Z17.0 Estrogen receptor positive status [ER+]; C79.51 Secondary malignant neoplasm of bone; Z79.899 Other long term (current) drug therapy; Z51.11 Encounter for antineoplastic chemotherapy; Z79.818 Long term (current) use of other agents affecting estrogen receptors and estrogen levels; Z85.3 Personal history of malignant neoplasm of breast; Z79.60 Long term (current) use of unspecified immunomodulators and immunosuppressants; Z90.11 Acquired absence of right breast and nipple; D64.9 Anemia, unspecified
CPT/HCPCS: 36415; 80053; 85025; 86300; 96401; 99214; J0897; J9395

== ENCOUNTER 2024-05-27 10:55 | Oncology outpatient (recurring) (ONCR) | payer MEDICARE, SELFPAY ==
[2024-05-27 11:24] LABS: Basophils % 0.8 %; Eosinophils % 0.8 %; Hematocrit 32.3 % (36-47); Lymphocytes # 1.2 10^3/uL (0.8-4.8); Lymphocytes % 32.4 %; Mean Corpuscular HGB Conc 32.8 g/dL (30-55); Mean Corpuscular Hemoglobin 34.6 pg (27-33); Mean Corpuscular Volume 105.6 fl (85-98); Mean Platelet Volume 8.8 fL (7.4-10.4); Monocytes # 0.5 10^3/uL (0.2-0.9); Monocytes % 14.4 %; Neutrophils # 1.81 10^3/uL (1.8-7.7); Nucleated Red Blood Cells # 0.1 /100WBC; Platelet Count 279 10^3/cmm (157-399); Red Blood Count 3.06 10^6/uL (3.85-5.65); Red Cell Distribution Width 20.9 % (12.1-15.1); White Blood Count 3.55 10^3/uL (3.29-11.43)
[2024-05-27 11:53] LABS: Alanine Aminotransferase 23 U/L (0-33); Albumin Level 4.2 g/dL (3.5-5.2); Alkaline Phosphatase 70 U/L (35-105); Aspartate Amino Transferase 31 U/L (0-32); Blood Urea Nitrogen 23 mg/dL (8-23); CA 15-3 184.4 U/mL (0-25); Calcium 8.8 mg/dL (8.5-10.5); Carbon Dioxide 23 mmol/L (22-29); Chloride 104 mmol/L (98-107); Globulin 2.4 g/dL (1.3-4.6); Glucose 93 mg/dL (65-115); Osmolality Calculated 289 mOsm/kg (285-295); Sodium 138 mmol/L (136-145); Total Bilirubin 0.5 mg/dL (0.15-1.2); Total Protein 6.6 g/dL (6.6-8.7)
[2024-05-27] MEDS: fulvestrant 250 mg/5 mL Syringe 500 MG IM (13:12)
[2024-05-27] MEDS: denosumab 120 mg SDV SUBCUT (13:18)
[2024-05-27 15:04] LABS: Vitamin B12 497 pg/mL (232-1245)
== END 2024-06-05 23:55 | disposition home or self-care (01) ==
PROVIDERS: Nurse Practitioner Family; PCP Family Medicine; Visit Provider Internal Medicine Medical Oncology
DX: C50.911 Malignant neoplasm of unspecified site of right female breast; Z17.0 Estrogen receptor positive status [ER+]; C79.51 Secondary malignant neoplasm of bone; Z79.899 Other long term (current) drug therapy; Z79.818 Long term (current) use of other agents affecting estrogen receptors and estrogen levels; Z85.3 Personal history of malignant neoplasm of breast; Z79.60 Long term (current) use of unspecified immunomodulators and immunosuppressants; Z90.11 Acquired absence of right breast and nipple; D64.9 Anemia, unspecified
CPT/HCPCS: 36415; 80053; 82607; 85025; 86300; 96372; 96402; 99214; J0897; J9395

== ENCOUNTER 2024-06-24 09:53 | Oncology outpatient (recurring) (ONCR) | payer MEDICARE, SELFPAY ==
[2024-06-24 11:10] LABS: Basophils % 1.3 %; Eosinophils # 0.1 10^3/uL (0.0-0.8); Eosinophils % 1.9 %; Hematocrit 29.1 % (36-47); Lymphocytes # 0.9 10^3/uL (0.8-4.8); Lymphocytes % 29.1 %; Mean Corpuscular HGB Conc 33.7 g/dL (30-55); Mean Corpuscular Hemoglobin 35.8 pg (27-33); Mean Corpuscular Volume 106.2 fl (85-98); Mean Platelet Volume 8.4 fL (7.4-10.4); Monocytes # 0.3 10^3/uL (0.2-0.9); Monocytes % 8.5 %; Neutrophils # 1.85 10^3/uL (1.8-7.7); Neutrophils % 58.6 %; Nucleated Red Blood Cells % 0.9 %; Platelet Count 227 10^3/cmm (157-399); Red Blood Count 2.74 10^6/uL (3.85-5.65); Red Cell Distribution Width 21.7 % (12.1-15.1); White Blood Count 3.16 10^3/uL (3.29-11.43)
[2024-06-24] MEDS: denosumab 120 mg SDV SUBCUT (11:29)
[2024-06-24] MEDS: fulvestrant 250 mg/5 mL Syringe 500 MG IM (11:32)
[2024-06-24 11:36] LABS: Alanine Aminotransferase 24 U/L (0-33); Albumin Level 3.8 g/dL (3.5-5.2); Alkaline Phosphatase 54 U/L (35-105); Anion Gap 14.3 (5-19); Aspartate Amino Transferase 35 U/L (0-32); Blood Urea Nitrogen 22 mg/dL (8-23); CA 15-3 160.4 U/mL (0-25); Calcium 8.5 mg/dL (8.5-10.5); Carbon Dioxide 23 mmol/L (22-29); Chloride 106 mmol/L (98-107); Creatinine Clr Calc Pharmacy 27.8246; Globulin 2.2 g/dL (1.3-4.6); Glucose 120 mg/dL (65-115); Osmolality Calculated 293 mOsm/kg (285-295); Potassium 4.3 mmol/L (3.5-5.1); Sodium 139 mmol/L (136-145); Total Bilirubin 0.5 mg/dL (0.15-1.2)
== END 2024-07-05 23:59 | disposition home or self-care (01) ==
PROVIDERS: Nurse Practitioner Family; PCP Family Medicine; Visit Provider Internal Medicine Medical Oncology
DX: C50.911 Malignant neoplasm of unspecified site of right female breast (principal); C79.51 Secondary malignant neoplasm of bone; Z17.0 Estrogen receptor positive status [ER+]; Z79.899 Other long term (current) drug therapy; Z79.818 Long term (current) use of other agents affecting estrogen receptors and estrogen levels; Z85.3 Personal history of malignant neoplasm of breast; Z79.60 Long term (current) use of unspecified immunomodulators and immunosuppressants; Z90.11 Acquired absence of right breast and nipple; D64.9 Anemia, unspecified; C50.311 Malignant neoplasm of lower-inner quadrant of right female breast
CPT/HCPCS: 36415; 80053; 85025; 86300; 96372; 96402; 99214; J0897; J9395

== ENCOUNTER 2024-06-24 11:48 | Emergency (ER) | payer MEDICARE, SELFPAY ==
--- NOTE | 2024-06-24 11:52 | CT_ITS ---
WS: [id number] CT FACIAL BONES HISTORY: fall TECHNIQUE: Images obtained from the supraorbital location through the mandible. Soft tissue and bone windows are reviewed. Coronal and sagittal reformats have also been submitted. DLP: 2658.[address] scans at [facility] use at least one of these dose optimization techniques: automated e xposure control; mA and/or kV adjustment per patient size (includes targeted exams where dose is matc hed to clinical indication); or iterative reconstruction. COMPARISON: None available. Extensive sclerotic and lytic changes throughout the bones of the upper cervical spine and skull. Pat ient has known treated osseous metastatic disease. Acute comminuted bilateral nasal bone fractures. Slightly greater comminution and medial displacement of the LEFT nasal bone. Normal zygomatic arches. No orbit fracture. No air-fluid levels in the sinus es. Mild flattening of the LEFT mandibular condyle from arthropathy at the TM joint. Mild soft tissue edema surrounding the nasal bones and a small amount of air. C3 anterolisthesis by 3.[address]/CT facial bones wo con* [id number] IMPRESSION: 1. Acute comminuted and slightly displaced bilateral nasal bone fractures. 2. No zygomatic arch fracture. 3. No orbit fracture. 4. Known osseous metastatic disease.
--- NOTE | 2024-06-24 11:52 | CT_ITS ---
WS: [id number] CT HEAD NONCONTRAST HISTORY: fall TECHNIQUE: Contiguous axial imaging performed through the brain in 3.0 mm imaging. Bone and soft tiss ue windows. Sagittal and coronal reformats reviewed. All CT scans at [facility] use at least one of these dose optimization techniques: automated exposure control; mA and/or kV adjustment per pa tient size (includes targeted exams where dose is matched to clinical indication); or iterative recon struction. DLP: 2658.34 mGy.cm COMPARISON: None available. No acute intracranial hemorrhage, midline shift or mass effect. Moderate atrophy with advanced small vessel ischemic disease. No acute blood products. Ventricles: Normal size with no hydrocephalus. No inferior displacement of cerebellar tonsils. Paranasal sinuses: As visualized are clear. Mastoid air cells: Well pneumatized. Calvarium and scalp: No fracture. Small soft tissue contusion centered over the mid forehead. CT/CT head wo con* [id number] IMPRESSION: 1. No acute intracranial hemorrhage or edema. 2. Moderate atrophy and small vessel ischemic disease. 3. No skull fracture. 4. Small frontal soft tissue contusion.
--- NOTE | 2024-06-24 11:52 | CT_ITS ---
WS: [id number] CT CERVICAL SPINE HISTORY: fall TECHNIQUE: Contiguous 2.0 mm axial imaging performed through the entire cervical spine. Sagittal and coronal reformats also performed. All CT scans at [facility] use at least one of these dose o ptimization techniques: automated exposure control; mA and/or kV adjustment per patient size (include s targeted exams where dose is matched to clinical indication); or iterative reconstruction. DLP: 2658.34 mGy.cm COMPARISON: None available. Extensive osteoblastic and osteolytic changes throughout the bones of the cervical spine and the visu alized skull and skull base. Patient has known treated osseous metastatic disease from breast cancer. C3 anterolisthesis by 5 mm. Marked narrowing of the predental space. Disc spaces are all narrowed an d desiccated. No acute fractures. Facet joints are normally aligned. Bilateral facet joint arthropath y, greater on the LEFT than the RIGHT. Visualized clavicles are negative. Biapical pleural thickening greatest on the RIGHT. No cervical chain lymph nodes. Extensive bilateral foraminal stenosis beginning at the C3-4 level. Moderate to severe at C4-5, C5-6 and C6-7. Cervical cord is being distorted and posteriorly displaced by cervical spine osteophytes. CT/CT cervical spin wo con* [id number] IMPRESSION: 1. No acute cervical spine fracture. 2. Patient has known treated osseous metastatic disease. 3. Bilateral extensive foraminal stenoses, moderate to severe from C4-5 throug h C6-7.
[2024-06-24 11:59] VITALS: BP 119/71; PULSE 72; RESP 18; TEMP 36.7; O2SAT 97; BMI 24.6
--- NOTE | 2024-06-24 14:31 | W.ED.FALL ---
HPI - Fall General: Chief Complaint: Fall Stated Complaint: fell and hit head and nose Time Seen by Provider: 06/24/24 14:23 History of Present Illness: 78-year-old female who states she tripped over her rubber soled shoe and fell forward onto her face. She has a bruising on her nose. No loss of consciousness. No altered mental status. No focal motor deficits. No nosebleeding. No other injuries. Related Data Home Medications Medication Instructions Recorded Confirmed fluoxetine 40 mg capsule (Prozac) 40 mg PO DAILY 07/14/20 06/24/24 acetaminophen 650 mg 650 mg PO Q8H PRN Pain 08/01/20 06/24/24 tablet,extended release (Tylenol Arthritis Pain) calcium w/ vitamin D 3 tab PO DAILY 08/01/20 06/24/24 camphor 3.1 %-methyl salicylate 10 1 patch topical DAILY PRN pain 08/07/23 06/24/24 %-menthol 6 % topical patch (Salonpas) folic acid 1 mg tablet 1 mg PO DAILY 01/26/24 06/24/24 acetaminophen 300 mg-codeine 30 mg 1 tab PO Q4H PRN 06/24/24 06/24/24 tablet ferrous sulfate 324 mg (65 mg 324 mg PO DAILY 06/24/24 06/24/24 iron) tablet,delayed release ipratropium bromide 42 mcg (0.06 2 spray intranasal DAILY 06/24/24 06/24/24 %) nasal spray Previous Rx's Medication Instructions Recorded lidocaine-prilocaine 2.5 %-2.5 % 1 applic topical ONCE PRN pain #30 05/27/23 topical cream grams pantoprazole 40 mg tablet,delayed 40 mg PO BID 30 days #60 tabs 02/09/24 release (Protonix) abemaciclib 100 mg tablet See Rx Instructions .Route 06/08/24 (Verzenio) .COMPLEX #56 tabs Allergies Allergy/AdvReac Type Severity Reaction Status Date / Time contact metal agent Allergy Severe ALGY-Rash Verified 06/24/24 10:05 Iodinated Contrast Media Allergy Severe ALGY-Hives Verified 06/24/24 10:05 Iodine and Iodide Containing Allergy hives/hard Verified 06/24/24 10:05 Produc to breathe Review of Systems Narrative: Constitutional symptoms: Negative except as documented in HPI. Skin symptoms: Negative except as documented in HPI. Eye symptoms: Negative except as documented in HPI. ENMT symptoms: Negative except as documented in HPI. Respiratory symptoms: Negative except as documented in HPI. Cardiovascular symptoms: Negative except as documented in HPI. Gastrointestinal symptoms: Negative except as documented in HPI. Genitourinary symptoms: Negative except as documented in HPI. Musculoskeletal symptoms: Negative except as documented in HPI. Neurologic symptoms: Negative except as documented in HPI. Psychiatric symptoms: Negative except as documented in HPI. Endocrine symptoms: Negative except as documented in HPI. PFSH ED PFSH: Medical History Anemia Breast cancer Depression Fibromyalgia Osteoarthritis Radiation-induced angiosarcoma of breast Surgical History History of hysterectomy with unilateral oophorectomy History of right mastectomy (05/05/23) Hx of carpal tunnel repair bilateral Hx of lumpectomy (2014) Right breast lumpectomy with axillary lymph node dissection followed by reexcision lumpectomy Hx of right knee surgery Hx of shoulder surgery left shoulder Hx of tonsillectomy Family History Grandmother CAD (coronary artery disease) Denies family history of Anesthesia complication Bleeding disorder Family history of premature coronary artery disease Cancer Social History Smoking and tobacco/nicotine status: former use of tobacco/nicotine Quit status (tobacco/nicotine): has quit using Year quit tobacco: 1991 Former quit date comment: smoked x 20 years Alcohol intake: never Substance/Drug Use: never Lives independently: Yes Physical Exam Narrative: EXAM NARRATIVE: General: Alert, no acute distress. Skin: Warm, dry. Head: Normocephalic, atraumatic. Neck: Supple, trachea midline. Eye: Extraocular movements are intact. Ears, nose, mouth and throat: mucosa moist. Bruising and abrasion of the nose. No misalignment. No septal hematoma Cardiovascular: Regular, Normal peripheral perfusion. Respiratory: Lungs are clear to auscultation, respirations are non-labored, breath sounds are equal, Symmetrical chest wall expansion. Gastrointestinal: Soft, Nontender, Non distended Musculoskeletal: Normal ROM, no deformity. Neurological: Alert and oriented, No focal neurological deficit observed. Psychiatric: Cooperative, appropriate mood & affect. Course Vital Signs: Vital signs: Vital Signs Temperature 98.0 F 06/24/24 11:59 Pulse Rate 72 06/24/24 11:59 Respiratory Rate 18 06/24/24 11:59 Blood Pressure 119/71 06/24/24 11:59 Pulse Oximetry 97 06/24/24 11:59 Oxygen Delivery Me thod Room Air 06/24/24 11:59 MDM - Fall Medical Decision Making CT head: No acute intracranial process. no intracranial hemorrhage, no evidence of infarct. no evidence of acute fracture.This was reviewed and interpreted by myself the ER physician. CT of the facial bones: comminuted and slightly displaced bilateral nasal bone fractures. This was reviewed and interpreted by myself the emergency room physician. I also reviewed the radiology report. CT of the cervical spine: Degenerative changes. No fracture. Good alignment. No step-offs. This was reviewed and interpreted by myself the emergency room physician. I also reviewed the radiologist report. Assessment and plan: Nasal fractures - Discharged home - Discussed plan with patient. Answered any questions. - Evaluation and treatment of this problem were appropriate in the emergency setting. Lab Data Radiology Impressions Cervical Spine CT 06/24/24 11:52 IMPRESSION: 1. No acute cervical spine fracture. 2. Patient has known treated osseous metastatic disease. 3. Bilateral extensive foraminal stenoses, moderate to severe from C4-5 through C6-7. Face CT 06/24/24 11:52 IMPRESSION: 1. Acute comminuted and slightly displaced bilateral nasal bone fractures. 2. No zygomatic arch fracture. 3. No orbit fracture. 4. Known osseous metastatic disease. Head CT 06/24/24 11:52 IMPRESSION: 1. No acute intracranial hemorrhage or edema. 2. Moderate atrophy and small vessel ischemic disease. 3. No skull fracture. 4. Small frontal soft tissue contusion. All radiology interpretation(s) finalized by discharge Discharge Plan Discharge Patient Disposition: Home Clinical Impression: Closed fracture nasal bone Condition: Stable Prescriptions: No Action calcium w/ vitamin D 3 tab PO DAILY acetaminophen [Tylenol Arthritis Pain] 650 mg tablet extended release 650 mg PO Q8H PRN (Reason: Pain) Salonpas 3.1-10-6 % adhesive patch,medicated 1 patch topical DAILY PRN (Reason: pain) Rx Instructions: may leave on area for up to 8 hrs fluoxetine [Prozac] 40 mg capsule 40 mg PO DAILY pantoprazole [Protonix] 40 mg tablet,delayed release (DR/EC) 40 mg PO BID 30 Days Qty: 60 11RF acetaminophen-codeine 300-30 mg tablet 1 tab PO Q4H PRN ferrous sulfate 324 mg (65 mg iron) tablet,delayed release (DR/EC) 324 mg PO DAILY ipratropium bromide 42 mcg (0.06 %) spray,non-aerosol 2 spray intranasal DAILY Rx Instructions: administer into each nostril lidocaine-prilocaine 2.5-2.5 % cream 1 applic topical ONCE PRN (Reason: pain) Qty: 30 0RF Rx Instructions: Apply 30-45 minutes prior to port access Verzenio 100 mg tablet See Rx Instructions .ROUTE .COMPLEX Qty: 56 0RF Dose Instruction: TAKE ONE TABLET BY MOUTH TWICE DAILY Rx Instructions: TAKE ONE TABLET BY MOUTH TWICE DAILY folic acid 1 mg tablet 1 mg PO DAILY Rx Instructions: take 1 tablet by mouth once daily Discharge Orders: Discharge ED (Routine); Ordered 06/24/24 Ordered By: Ngozi Franco Referrals: Bong Robledo MD [Physician] - 4-7 days (Please call for an appointment) Carolyn Pires DO [Primary Care Provider] - Discharge Diet: Usual diet Discharge Activity: Increase activity as tolerated Patient Instructions: Nasal Fracture (ED) Activity Restrictions/Additional Instructions: Thank you for choosing [facility] for your healthcare needs today. Please realize this is an emergency room and that we are providing you with a medical screening exam and this may not be complete and all inclusive of all the testing and or work up that you may need to determine your ailment or severity of your illness. You have been screened and evaluated and felt safe for discharge. Health conditions do change or evolve sometimes and as such it is important that you follow up with your Primary Doctor to be re checked, 3-5 days is a general good time frame for follow up. You are always welcome to return to the ED for re assessment if your symptoms are worsening or you have new concerns Coding Level of Care Code ED Readiness Paraprofessional for Josiah Wellington
[2024-06-24 14:51] VITALS: BP 131/73; PULSE 77; O2SAT 99
== END 2024-06-24 14:53 | disposition home or self-care (01) ==
PROVIDERS: Emergency Provider Emergency Medicine; PCP Family Medicine
DX: S02.2XXA Fracture of nasal bones, initial encounter for closed fracture (principal); Z85.3 Personal history of malignant neoplasm of breast; Z87.891 Personal history of nicotine dependence; W01.0XXA Fall on same level from slipping, tripping and stumbling without subsequent striking against object, initial encounter
CPT/HCPCS: 70450; 70486; 72125; 99284

== ENCOUNTER 2024-07-22 13:34 | Oncology outpatient (recurring) (ONCR) | payer MEDICARE, SELFPAY ==
[2024-07-22 13:56] LABS: Basophils % 0.9 %; Eosinophils # 0.1 10^3/uL (0.0-0.8); Eosinophils % 2.9 %; Hematocrit 29.8 % (36-47); Lymphocytes # 0.8 10^3/uL (0.8-4.8); Lymphocytes % 23.6 %; Mean Corpuscular HGB Conc 33.6 g/dL (30-55); Mean Corpuscular Hemoglobin 36.1 pg (27-33); Mean Corpuscular Volume 107.6 fl (85-98); Mean Platelet Volume 8.7 fL (7.4-10.4); Monocytes # 0.3 10^3/uL (0.2-0.9); Monocytes % 8.6 %; Neutrophils # 2.19 10^3/uL (1.8-7.7); Neutrophils % 63.1 %; Nucleated Red Blood Cells # 0.1 /100WBC; Platelet Count 248 10^3/cmm (157-399); Red Blood Count 2.77 10^6/uL (3.85-5.65); Red Cell Distribution Width 20.9 % (12.1-15.1); White Blood Count 3.47 10^3/uL (3.29-11.43)
[2024-07-22 14:35] LABS: Alanine Aminotransferase 18 U/L (0-33); Albumin Level 3.7 g/dL (3.5-5.2); Alkaline Phosphatase 66 U/L (35-105); Anion Gap 13.1 (5-19); Aspartate Amino Transferase 28 U/L (0-32); Blood Urea Nitrogen 14 mg/dL (8-23); CA 15-3 147.1 U/mL (0-25); Calcium 8.4 mg/dL (8.5-10.5); Carbon Dioxide 23 mmol/L (22-29); Chloride 102 mmol/L (98-107); Creatinine Clr Calc Pharmacy 25.7088; Globulin 2.5 g/dL (1.3-4.6); Glucose 192 mg/dL (65-115); Osmolality Calculated 284 mOsm/kg (285-295); Potassium 4.1 mmol/L (3.5-5.1); Sodium 134 mmol/L (136-145); Total Bilirubin 0.4 mg/dL (0.15-1.2); Total Protein 6.2 g/dL (6.6-8.7)
[2024-07-22] MEDS: fulvestrant 250 mg/5 mL Syringe 500 MG IM (15:59)
[2024-07-22] MEDS: denosumab 120 mg SDV SUBCUT (16:02)
[2024-07-22 16:07] VITALS: BP 125/75; PULSE 92; RESP 17; TEMP 36.7; O2SAT 92
--- NOTE | 2024-08-05 16:30 | CT_ITS ---
WS: [id number] CT chest wo con [id number] HISTORY: Followup metastatic breast cancer TECHNIQUE: Axial imaging performed through the thorax. Coronal and sagittal reformats are submitted. All CT scans at [facility] use at least one of these dose optimization techniques: automated exposure control; mA and/or kV adjustment per patient size (includes targeted exams where dose is mat ched to clinical indication); or iterative reconstruction. CONTRAST: Omnipaque 350; 100 mL IV. DLP: 284.74 mGy.cm COMPARISON: 03/08/2024, PET/CT 04/06/2024 Lungs and central airway: Mild volume loss in the RIGHT thorax. Increasing pleural thickening which i s irregular throughout the RIGHT thorax. Interstitial thickening and fibrosis is reidentified bilater ally. This study was done without IV contrast therefore enhancement of the pleural thickening cannot be determined. Most significant concerning pleural thickening is in the anterior mid RIGHT thorax. Pl eural nodularity measures 4.4 cm x 1.5 cm. Pleura: No pleural effusion. Heart and pericardium: Mildly enlarged heart. Mediastinum and ruth: Poorly visualized hilar regions without IV contrast. Lymph nodes would be diffi cult to exclude. Vessels: Mild atherosclerosis aorta. Dilated pulmonary artery. Chest wall and lower neck: Prior RIGHT mastectomy. Increased soft tissue and possible fluid collectio n at the site of the mastectomy. Collection of conforms to the chest wall measuring 10.4 x 2.2 cm. Upper abdomen: Bilateral renal parapelvic cysts. Similar to prior studies. No adrenal mass. Noncontra st liver is negative. Osseous structures: Patient has known extensive osseous metastatic disease. There is extensive involv ement of all bones of the thorax including the ribs and spine and sternum. No acute compression fract ure. CT/CT chest wo con [id number] IMPRESSION: 1. Status post RIGHT mastectomy. 2. There is a soft tissue collection conforming to the chest wall at the site of the RIGHT mastectomy. Collection measures 10.4 x 2.2 cm and appears slightly more prominent than 04/06/2024. Negative on the PET/CT. 3. Progressive pleural thickening throughout the RIGHT thorax but most signifi cant deep to the RIGHT mastectomy site. This all may be related to sequela from radiation therapy. Recommend serial evaluation by PET/CT or imaging. 4. Interstitial fibrosis is unchanged. 5. Patient has known extensive osseous metastatic disease.
== END 2024-08-05 23:59 | disposition home or self-care (01) ==
PROVIDERS: Nurse Practitioner Family; PCP Family Medicine; Visit Provider Internal Medicine Hematology & Oncology
DX: Z51.11 Encounter for antineoplastic chemotherapy; C79.51 Secondary malignant neoplasm of bone; C50.311 Malignant neoplasm of lower-inner quadrant of right female breast; Z17.0 Estrogen receptor positive status [ER+]; Z79.899 Other long term (current) drug therapy; Z79.818 Long term (current) use of other agents affecting estrogen receptors and estrogen levels; Z85.3 Personal history of malignant neoplasm of breast; Z79.60 Long term (current) use of unspecified immunomodulators and immunosuppressants; Z90.11 Acquired absence of right breast and nipple; Z79.891 Long term (current) use of opiate analgesic; Z92.3 Personal history of irradiation; Z53.9 Procedure and treatment not carried out, unspecified reason
CPT/HCPCS: 36415; 71250; 80053; 85025; 86300; 96401; 96402; 99214; J0897; J9395

== ENCOUNTER 2024-08-24 20:01 | Emergency (ER) | payer MEDICARE, SELFPAY ==
[2024-08-24] VITALS (9 sets, daily range): BP systolic 97–128; BP diastolic 55–65; PULSE 63–97; RESP 16–28; TEMP 36.4; O2SAT 85–97; BMI 23.8
--- NOTE | 2024-08-24 20:30 | XRR_ITS ---
PROCEDURE INFORMATION: Exam: XR Chest Exam date and time: 08/24/2024 8:36 PM Age: 78 years old Clinical indication: Shortness of breath; Prior surgery; Surgery date: 6+ months; Surgery type: RT breast; Additional info: Dyspnea TECHNIQUE: Imaging protocol: Radiologic exam of the chest. Views: 1 view. COMPARISON: CT chest con [id number] 08/05/2024 4:30 PM FINDINGS: Lungs: Diffuse interstitial thickening and subpleural reticular changes of the lungs related to pulmonary fibrotic changes. This is greatest in the lung bases. Pleural spaces: Unremarkable. No pleural effusion. No pneumothorax. Heart/Mediastinum: Mild cardiomegaly . Bones/joints: Unremarkable. XR/XR chest 1V portable [id number] IMPRESSION: As above.
--- NOTE | 2024-08-24 20:32 | W.ED.SOB ---
HPI - SOB/Dyspnea General: Chief Complaint: Shortness of Breath/Dyspnea Stated Complaint: fall/sob Time Seen by Provider: 08/24/24 20:18 History of Present Illness: HPI Narrative: Patient presents to the ER with complaints of shortness of breath and a history of a fall today. 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 She is undergoing treatment. She says she been getting short of breath over about the last month and has been getting worse. Patient denies any fever but does states she has chills. Patient just saw her oncologist about 5 days ago. Patient has said she is try to get oxygen before but is never failed the test. Patient is on any type of nebulizers or breathing treatments. Patient does have a 20+ year history of tobacco smoking but quit in 1981, Related Data Home Medications Medication Instructions Recorded Confirmed fluoxetine 40 mg capsule (Prozac) 40 mg PO DAILY 07/14/20 08/19/24 acetaminophen 650 mg 650 mg PO Q8H PRN Pain 08/01/20 08/19/24 tablet,extended release (Tylenol Arthritis Pain) calcium w/ vitamin D 3 tab PO DAILY 08/01/20 08/19/24 camphor 3.1 %-methyl salicylate 10 1 patch topical DAILY PRN pain 08/07/23 08/19/24 %-menthol 6 % topical patch (Salonpas) acetaminophen 300 mg-codeine 30 mg 1 tab PO Q4H PRN 06/24/24 08/19/24 tablet ferrous sulfate 324 mg (65 mg 324 mg PO DAILY 06/24/24 08/19/24 iron) tablet,delayed release ipratropium bromide 42 mcg (0.06 2 spray intranasal DAILY 06/24/24 08/19/24 %) nasal spray folic acid 1 mg tablet PO 08/19/24 08/19/24 Previous Rx's Medication Instructions Recorded lidocaine-prilocaine 2.5 %-2.5 % 1 applic topical ONCE PRN pain #30 05/27/23 topical cream grams pantoprazole 40 mg tablet,delayed 40 mg PO BID 30 days #60 tabs 02/09/24 release (Protonix) abemaciclib 100 mg tablet See Rx Instructions .Route 08/02/24 (Verzenio) .COMPLEX #56 tabs prednisone 5 mg tablet 5 mg PO DIRECTED #10 tabs 08/19/24 Allergies Allergy/AdvReac Type Severity Reaction Status Date / Time contact metal agent Allergy Severe ALGY-Rash Verified 08/24/24 20:13 Iodinated Contrast Media Allergy Severe ALGY-Hives Verified 08/24/24 20:13 Iodine and Iodide Containing Allergy hives/hard Verified 08/24/24 20:13 Produc to breathe Review of Systems General: Reports: 10 or more systems reviewed and unremarkable except in HPI and below PFSH ED PFSH: Medical History Osteoarthritis Fibromyalgia Depression Breast cancer Anemia Radiation-induced angiosarcoma of breast Surgical History History of hysterectomy with unilateral oophorectomy History of right mastectomy (05/05/23) Hx of shoulder surgery left shoulder Hx of right knee surgery Hx of tonsillectomy Hx of lumpectomy (2014) Right breast lumpectomy with axillary lymph node dissection followed by reexcision lumpectomy Hx of carpal tunnel repair bilateral Family History Grandmother CAD (coronary artery disease) Denies family history of Anesthesia complication Bleeding disorder Family history of premature coronary artery disease Cancer Social History Smoking and tobacco/nicotine status: former use of tobacco/nicotine Quit status (tobacco/nicotine): has quit using Year quit tobacco: 1991 Former quit date comment: smoked x 20 years Alcohol intake: never Substance/Drug Use: never Lives independently: Yes Physical Exam Const: COMMON NORMALS: no acute distress, average body habitus, patient oriented x3, no limitations, healthy appearing, alert and well nourished HENMT: COMMON NORMALS: normocephalic, atraumatic, hearing grossly normal bilaterally, external ears normal, Normal external nose present and moist oral mucous membranes HEAD & SCALP: normocephalic and atraumatic NOSE: Normal external nose present EXTERNAL EAR: Yes external ears normal Neck/C-Spine: COMMON NORMALS: full ROM, no lymphadenopathy, supple, no meningeal signs and no JVD Chest: COMMONS NORMALS: normal inspection of the chest and normal palpation of entire chest wall Resp: COMMON NORMALS: normal respiratory effort, No retractions, No use of accessory muscles and clear to auscultation bilaterally AUSCULTATION: clear to auscultation bilaterally Cardio: COMMON NORMALS: no JVD, regular rate, regular rhythm, S1 normal heart sound present, S2 normal heart sound present, No gallops present (Cardio), No clicks present (Cardio), No murmurs present (Cardio) and No rub (Cardio) RATE: regular rate RHYTHM: regular rhythm HEART SOUNDS: S1 normal heart sound present and S2 normal heart sound present GI: COMMON NORMALS: Normal to inspection, nondistended, normoactive bowel sounds present, Soft to palpation, non-tender, No hepatosplenomegaly present and no masses PALPATION: Yes Soft to palpation and Yes No hepatosplenomegaly present Neuro: COMMON NORMALS: patient oriented x3 SENSORIUM/ORIENTATION: Yes alert MENINGEAL SIGNS: Yes no meningeal signs Course Vital Signs: Vital signs: Vital Signs Temperature 97.6 F 08/24/24 20:09 Pulse Rate 63 08/24/24 23:30 Respiratory Rate 19 H 08/24/24 22:39 Blood Pressure 107/65 08/24/24 23:30 Pulse Oximetry 85 L 08/24/24 23:53 Oxygen Delivery Me thod Nasal Cannula 08/24/24 21:28 Oxygen Flow Rate 4 08/24/24 23:53 MDM - SOB/Dyspnea Medical Decision Making Number was obtained and showed patient is anemic with hemoglobin 9.8, hypokalemic potassium 3.1, hypoxic O2 sat of 87% on room air. Chest x-ray showed normal scarring for this patient. Patient did test COVID-positive. Patient is needing home oxygen and failed home O2 test by RT so we will provide her with 2 to 4 L of oxygen. Medical Records I reviewed the patient's medical records. Lab Data I reviewed the patient's lab results. 08/24/24 20:30 08/24/24 20:30 Labs/Radiology: Radiology Impressions Chest X-Ray 08/24/24 20:30 IMPRESSION: As above. Laboratory Results WBC 4.31 10^3/uL (3.29-11.43) 08/24/24 20:30 RBC 2.79 10^6/uL (3.85-5.65) L 08/24/24 20:30 Hgb 9.80 g/dL (11.27-16.99) L 08/24/24 20:30 Hct 28.7 % (36-47) L 08/24/24 20:30 MCV 102.9 fl (85-98) H 08/24/24 20:30 MCH 35.1 pg (27-33) H 08/24/24 20:30 MCHC 34.1 g/dL (30-55) 08/24/24 20: RDW 21.2 % (12.1-15.1) H 08/24/24 20:30 Plt Count 183 10^3/cmm (157-399) 08/24/24 20:30 MPV 9.3 fL (7.4-10.4) 08/24/24 20:30 Neut % (Auto) 67.0 % 08/24/24 20:30 Lymph % (Auto) 29.0 % 08/24/24 20:30 [place] % (Auto) 3.5 % 08/24/24 20:30 Eos % (Auto) 0.0 % 08/24/24 20: Baso % (Auto) 0.0 % 08/24/24 20:30 Neut # (Auto) 2.89 10^3/uL (1.8-7.7) 08/24/24 20: Lymph # (Auto) 1.3 10^3/uL (0.8-4.8) 08/24/24 20:30 [place] # (Auto) 0.2 10^3/uL (0.2-0.9) 08/24/24 20:30 Eos # (Auto) 0.0 10^3/uL (0.0-0.8) 08/24/24 20:30 Baso # (Auto) 0.0 10^3/uL (0.0-0.1) 08/24/24 20: Nucleated RBC % (auto) 0.5 % 08/24/24 20: Nucleated RBCs # 0.0 /100WBC 08/24/24 20:30 Sodium 131 mmol/L (136-145) L 08/24/24 20:30 Potassium 3.1 mmol/L (3.5-5.1) L 08/24/24 20:30 Chloride 95 mmol/L (98-107) L 08/24/24 20:30 Carbon Dioxide 19 mmol/L (22-29) L 08/24/24 20:30 Anion Gap 20.1 (5-19) H 08/24/24 20:30 BUN 21 mg/dL (8-23) 08/24/24 20:30 Creatinine 1.2 mg/dL (0.5-0.9) H 08/24/24 20:30 GFR Calculation Not Reportable 08/24/24 20:30 Glucose 155 mg/dL (65-115) H 08/24/24 20:30 Calculated Osmolality 278 mOsm/kg (285-295) L 08/24/24 20:30 Lactic Acid 3.0 mmol/L (0.5-2.2) H 08/24/24 20:30 Lactic Acid (Sepsis) 2.4 mmol/L (0.5-2.2) H 08/24/24 21:14 Calcium 8.4 mg/dL (8.5-10.5) L 08/24/24 20:30 Total Bilirubin 0.5 mg/dL (0.15-1.2) 08/24/24 20:30 AST 46 U/L (0-32) H 08/24/24 20:30 ALT 16 U/L (0-33) 08/24/24 20:30 Alkaline Phosphatase 63 U/L (35-105) 08/24/24 20:30 Total Protein 6.1 g/dL (6.6-8.7) L 08/24/24 20:30 Albumin 3.4 g/dL (3.5-5.2) L 08/24/24 20:30 Globulin 2.7 g/dL (1.3-4.6) 08/24/24 20:30 Procalcitonin 0.16 ng/mL (0-0.5) 08/24/24 20:30 Coronavirus (PCR) Positive (Negative) A 08/24/24 20:49 Influenza A (PCR) Negative (Negative) 08/24/24 20:49 Influenza Type B (PCR) Negative (Negative) 08/24/24 20:49 RSV (PCR) Negative (Negative) 08/24/24 20:49 All radiology interpretation(s) finalized by discharge Discharge Plan Discharge Patient Disposition: Home Clinical Impression: Lab test positive for detection of COVID-19 virus, Anemia, Acute hypoxic respiratory failure Condition: Stable Prescriptions: No Action calcium w/ vitamin D 3 tab PO DAILY acetaminophen [Tylenol Arthritis Pain] 650 mg tablet extended release 650 mg PO Q8H PRN (Reason: Pain) Salonpas 3.1-10-6 % adhesive patch,medicated 1 patch topical DAILY PRN (Reason: pain) Rx Instructions: may leave on area for up to 8 hrs fluoxetine [Prozac] 40 mg capsule 40 mg PO DAILY pantoprazole [Protonix] 40 mg tablet,delayed release (DR/EC) 40 mg PO BID 30 Days Qty: 60 11RF acetaminophen-codeine 300-30 mg tablet 1 tab PO Q4H PRN ferrous sulfate 324 mg (65 mg iron) tablet,delayed release (DR/EC) 324 mg PO DAILY ipratropium bromide 42 mcg (0.06 %) spray,non-aerosol 2 spray intranasal DAILY Rx Instructions: administer into each nostril folic acid 1 mg tablet PO prednisone 5 mg tablet 5 mg PO DIRECTED Qty: 10 0RF Rx Instructions: take 1 tab twice a day for 2 days then take 1 tab daily lidocaine-prilocaine 2.5-2.5 % cream 1 applic topical ONCE PRN (Reason: pain) Qty: 30 0RF Rx Instructions: Apply 30-45 minutes prior to port access Verzenio 100 mg tablet See Rx Instructions .ROUTE .COMPLEX Qty: 56 0RF Dose Instruction: TAKE ONE TABLET BY MOUTH TWICE DAILY Rx Instructions: TAKE ONE TABLET BY MOUTH TWICE DAILY Discharge Orders: Discharge ED (Routine); Ordered 08/25/24 Ordered By: Michael Thao Other Ambulatory Orders: DME: Oxygen (Order) Location: None Selected Ordered By: Michael Thao Referrals: Carolyn Pires DO [Primary Care Provider] - 1 week Patient Instructions: Anemia, Using Oxygen at Home (ED), Hypoxia (ED), COVID-19 (Coronavirus Disease 2019) (ED) Activity Restrictions/Additional Instructions: Thank you for choosing [facility] for your healthcare needs today. Please realize that you were seen in the emergency department and that we are providing you with an emergency medical screening exam and this may not be a complete and all exclusive of all testing and/or medical workup we may need to determine your element or severity of your illness. It is very important that you follow-up as instructed with your primary care provider or specialist for the additional evaluation and to discuss your medical treatment plan. You may return to the emergency department should you have concerns or if your condition changes or worsens in any way. Coding Level of Care Code ED Tow [employer]eder for Josiah Wellington
[2024-08-24 20:44] LABS: Hematocrit 28.7 % (36-47); Lymphocytes # 1.3 10^3/uL (0.8-4.8); Mean Corpuscular HGB Conc 34.1 g/dL (30-55); Mean Corpuscular Hemoglobin 35.1 pg (27-33); Mean Corpuscular Volume 102.9 fl (85-98); Mean Platelet Volume 9.3 fL (7.4-10.4); Monocytes # 0.2 10^3/uL (0.2-0.9); Monocytes % 3.5 %; Neutrophils # 2.89 10^3/uL (1.8-7.7); Nucleated Red Blood Cells % 0.5 %; Platelet Count 183 10^3/cmm (157-399); Red Blood Count 2.79 10^6/uL (3.85-5.65); Red Cell Distribution Width 21.2 % (12.1-15.1); White Blood Count 4.31 10^3/uL (3.29-11.43)
[2024-08-24 21:01] LABS: Alanine Aminotransferase 16 U/L (0-33); Albumin Level 3.4 g/dL (3.5-5.2); Alkaline Phosphatase 63 U/L (35-105); Anion Gap 20.1 (5-19); Aspartate Amino Transferase 46 U/L (0-32); Blood Urea Nitrogen 21 mg/dL (8-23); Calcium 8.4 mg/dL (8.5-10.5); Carbon Dioxide 19 mmol/L (22-29); Chloride 95 mmol/L (98-107); Creatinine Clr Calc Pharmacy 29.6668; Globulin 2.7 g/dL (1.3-4.6); Glucose 155 mg/dL (65-115); Osmolality Calculated 278 mOsm/kg (285-295); Potassium 3.1 mmol/L (3.5-5.1); Sodium 131 mmol/L (136-145); Total Bilirubin 0.5 mg/dL (0.15-1.2); Total Protein 6.1 g/dL (6.6-8.7)
[2024-08-24 21:08] LABS: Procalcitonin 0.16 ng/mL (0-0.5)
[2024-08-24 21:09] LABS: Slide Review Slide Review Perform
[2024-08-24] MEDS: sodium chloride 0.9% 1,660.14 ML 1660.14 ML IV (21:18)
[2024-08-24] MEDS: potassium chloride ER 20 mEq Tablet 40 MEQ PO (21:19)
[2024-08-24 21:29] LABS: Influenza A NEGATIVE (Negative); Influenza B NEGATIVE (Negative); Respiratory Syncytial Virus Ce NEGATIVE (Negative)
[2024-08-24 21:56] LABS: Covid PCR Positive (Negative)
[2024-08-24 22:27] LABS: Reflex Lactate Order REFLEX LACTIC ORDERD
[2024-08-24 22:41] LABS: Lactic Acid level (Lactate) 2.4 mmol/L (0.5-2.2)
[2024-08-25] VITALS: BP 115/57; PULSE 61; O2SAT 96
[2024-08-25 01:14] VITALS: BP 113/57; PULSE 63; O2SAT 92
== END 2024-08-25 01:16 | disposition home or self-care (01) ==
PROVIDERS: Emergency Provider Emergency Medicine; PCP Family Medicine
DX: U07.1 COVID-19 (principal); Z11.52 Encounter for screening for COVID-19; D64.9 Anemia, unspecified; J96.01 Acute respiratory failure with hypoxia; Z87.891 Personal history of nicotine dependence; C50.919 Malignant neoplasm of unspecified site of unspecified female breast; C79.51 Secondary malignant neoplasm of bone
CPT/HCPCS: 0241U; 36415; 71045; 80053; 83605; 84145; 85025; 87040; 94760; 99284; J7030

== ENCOUNTER 2024-08-27 23:25 | Inpatient (IN) | payer MEDICARE, SELFPAY ==
--- NOTE | 2024-08-27 23:29 | XRR_ITS ---
PROCEDURE INFORMATION: Exam: XR Chest Exam date and time: 08/27/2024 11:40 PM Age: 78 years old Clinical indication: Shortness of breath; Prior surgery; Surgery date: 6+ months; Surgery type: RT breast; Patient HX: SOB; Breast CA TECHNIQUE: Imaging protocol: Radiologic exam of the chest. Views: 1 view. COMPARISON: CR (CHEST, ) 08/24/2024 8:36 PM FINDINGS: Lungs: Interval increased diffuse interstitial thickening greatest on the right. This is related to underlying pulmonary fibrotic change with superimposed acute infectious/inflammatory processes. Pleural spaces: Unremarkable. No pleural effusion. No pneumothorax. Heart/Mediastinum: Mild cardiomegaly. Bones/joints: Unremarkable. XR/XR chest 1V portable [id number] IMPRESSION: As above.
--- NOTE | 2024-08-27 23:29 | ECG_ITS ---
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 Measurements Intervals [place] Rate: 59 P: 53 IA: 130 QRS: 54 QRSD: 73 T: 54 QT: 465 QTc: 464 Interpretive Statements SINUS BRADYCARDIA MODERATE ST DEPRESSION [0.05+ mV ST DEPRESSION] No previous ECG available for comparison Electronically Signed On 08-28-2024 10:19:18 DEBURRER MACHINE by Chris Spencer M.D. [email or web address]
--- NOTE | 2024-08-27 23:29 | CTR_ITS ---
PROCEDURE INFORMATION: Exam: CTA Chest With Contrast Exam date and time: 08/28/2024 12:23 AM Age: 78 years old Clinical indication: Shortness of breath; Prior surgery; Surgery date: 6+ months; Surgery type: RT mastectomy; Patient HX: EMS arrival for SOB and hypoxia. Base troponin of 420. History of breast cancer with bone mets. TECHNIQUE: Imaging protocol: Computed tomographic angiography of the chest with contrast. Exam focused on the arteries. 3D rendering (Not supervised by radiologist): MIP and/or 3D reconstructed images were created by the technologist. Radiation optimization: All CT scans at this facility use at least one of these dose optimization techniques: automated exposure control; mA and/or kV adjustment per patient size (includes targeted exams where dose is matched to clinical indication); or iterative reconstruction. Contrast material: OMNI 350; Contrast volume: 55 ml; Contrast route: INTRAVENOUS (IV); COMPARISON: CT chest wo con [id number] 08/05/2024 4:30 PM RADIATION DOSE METRICS: Total DLP (mGy-cm): 159.45 FINDINGS: Pulmonary arteries: No obvious or central PE. The peripheral arteries are obscured by motion, technique, and lung opacities. Subtle findings will be missed. Aorta: Advanced diffuse vascular calcification noted. No aortic aneurysm. No aortic dissection. Lungs: Severe underlying COPD. Severe diffuse areas of hazy alveolar-interstitial infiltrate with areas of fibrosis as well. Lung findings are considerably progressed from 08/05/2024 throughout. Pleural spaces: Small roxgh-ocjcohk-ogsg-left pleural effusions. No pneumothorax. Heart: The heart is very large. Lymph nodes: Mild right hilar and mediastinal lymphadenopathy. Kidneys: Partially assessed bilateral renal cysts. Bones/joints: Widespread severe osseous metastases are again seen. Soft tissues: Right mastectomy. Stable right chest wall fluid collection or scarring. CT/CT angio chest PE protcl [id number] IMPRESSION: 1. Exam compared with 08/05/2024. 2. Considerably progressive areas of diffuse bilateral atelectasis, edema or developing pneumonia/pneumonitis. 3. Progressive small bilateral pleural effusions. 4. Underlying very severe lung scarring again noted. 5. Unimproved, severe widespread osseous metastases. 6. No obvious PE. In this regard the exam is challenging. See above. 7. A few chronic/incidental findings above. COMMENTS: Consistent with the [place] [employer] [place] [employer]'s Incidental Findings Committee white paper (J Am Sara Radiol 2018): Any incidental renal lesion less than 1 cm or classified as too small to characterize, or any incidental cystic renal lesion characterized as simple-appearing, is likely benign. No follow-up imaging is recommended for these lesions per consensus recommendations based on imaging criteria.
--- NOTE | 2024-08-27 23:31 | CTR_ITS ---
PROCEDURE INFORMATION: Exam: CT Head Without Contrast Exam date and time: 08/28/2024 12:18 AM Age: 78 years old Clinical indication: Altered mental status/memory loss; Confusion or disorientation; Patient HX: EMS arrival for SOB and AMS. Patient very confused and unable to follow any instructions. History of breast cancer with bone mets. TECHNIQUE: Imaging protocol: Computed tomography of the head without contrast. Radiation optimization: All CT scans at this facility use at least one of these dose optimization techniques: automated exposure control; mA and/or kV adjustment per patient size (includes targeted exams where dose is matched to clinical indication); or iterative reconstruction. COMPARISON: CT head wo con* [id number] 06/24/2024 1:38 PM RADIATION DOSE METRICS: Total DLP (mGy-cm): 1600.58 FINDINGS: Brain: There is moderate diffuse cerebral atrophy. Patchy areas hypoattenuation are seen in the deep matter of the cerebral hemispheres bilaterally deep white matter microvascular disease. Cerebral ventricles: No ventriculomegaly. Paranasal sinuses: There is moderate mild mucosal thickening and fluid is seen within the ethmoidal, sphenoidal sinuses bilaterally within the left maxillary sinus. Mastoid air cells: Visualized mastoid air cells are well aerated. Bones: There is a fracture of the nasal bones. There is diffuse sclerosis seen within the visualized calvarium, basiocciput and C1 worrisome bony metastatic disease. Additionally, there is a lytic lesion seen in the right frontal bone. This lesion on 06/24/2024 previously measured 17.5 mm along the inner table and today measures 18.9 mm. The outer table previously measured 2.4 mm thickness, today measures 1.7 mm. The Inner table is absent. There are lytic lesions seen within the parietal bones posteriorly. Soft tissues: Unremarkable. CT/CT head wo con* [id number] IMPRESSION: 1. There are no acute intracranial findings. 2. Diffuse lytic and sclerotic metastatic lesions the visualized osseous structures. 3. Bilateral nasal fractures
[2024-08-27 23:32] VITALS: BP 144/68; PULSE 63; RESP 42; O2SAT 78; BMI 17.6
--- NOTE | 2024-08-27 23:39 | ED_ITS ---
HPI - SOB/Dyspnea 2 General: Chief Complaint: Shortness of Breath/Dyspnea Stated Complaint: SOB Time Seen by Provider: 08/27/24 23:28 Source: EMS Mode of arrival: EMS Limitations: altered mental status History of Present Illness: HPI Narrative: 78-year-old female history of breast can cer patient brought in by EMS tonight for confusion along with hypoxia and shortness of breath. EMS states that people there were bad historians patient hears ultrasound only to tell her name. Reviewing her history she does have a history of cancer she was seen here 3 days ago for shortness of breath diagnosed with COVID per EMS her pulse ox was in the 40s they have her on a nonrebreather I placed her on BiPAP Related Data Home Medications Medication Instructions Recorded Confirmed fluoxetine 40 mg capsule (Prozac) 40 mg PO DAILY 07/14/20 08/19/24 acetaminophen 650 mg 650 mg PO Q8H PRN Pain 08/01/20 08/19/24 tablet,extended release (Tylenol Arthritis Pain) calcium w/ vitamin D 3 tab PO DAILY 08/01/20 08/19/24 camphor 3.1 %-methyl salicylate 10 1 patch topical DAILY PRN pain 08/07/23 08/19/24 %-menthol 6 % topical patch (Salonpas) acetaminophen 300 mg-codeine 30 mg 1 tab PO Q4H PRN 06/24/24 08/19/24 tablet ferrous sulfate 324 mg (65 mg 324 mg PO DAILY 06/24/24 08/19/24 iron) tablet,delayed release ipratropium bromide 42 mcg (0.06 2 spray intranasal DAILY 06/24/24 08/19/24 %) nasal spray folic acid 1 mg tablet PO 08/19/24 08/19/24 Previous Rx's Medication Instructions Recorded lidocaine-prilocaine 2.5 %-2.5 % 1 applic topical ONCE PRN pain #30 05/27/23 topical cream grams pantoprazole 40 mg tablet,delayed 40 mg PO BID 30 days #60 tabs 02/09/24 release (Protonix) abemaciclib 100 mg tablet See Rx Instructions .Route 08/02/24 (Verzenio) .COMPLEX #56 tabs prednisone 5 mg tablet 5 mg PO DIRECTED #10 tabs 08/19/24 Allergies Allergy/AdvReac Type Severity Reaction Status Date / Time contact metal agent Allergy Severe ALGY-Rash Verified 08/24/24 20:13 Iodinated Contrast Media Allergy Severe ALGY-Hives Verified 08/24/24 20:13 Iodine and Iodide Containing Allergy hives/hard Verified 08/24/24 20:13 Produc to breathe Review of Systems 2 General: Reports: ROS unobtainable due to mental status PFSH ED 2 PFSH: Medical History Osteoarthritis Fibromyalgia Depression Breast cancer Anemia Radiation-induced angiosarcoma of breast Surgical History History of hysterectomy with unilateral oophorectomy History of right mastectomy (05/05/23) Hx of shoulder surgery left shoulder Hx of right knee surgery Hx of tonsillectomy Hx of lumpectomy (2014) Right breast lumpectomy with axillary lymph node dissection followed by reexcision lumpectomy Hx of carpal tunnel repair bilateral Family History Grandmother CAD (coronary artery disease) Denies family history of Anesthesia complication Bleeding disorder Family history of premature coronary artery disease Cancer Social History Smoking and tobacco/nicotine status: former use of tobacco/nicotine Quit status (tobacco/nicotine): has quit using Year quit tobacco: 1991 Former quit date comment: smoked x 20 years Alcohol intake: never Substance/Drug Use: never Lives independently: Yes Physical Exam 2 Const: COMMON NORMALS: negative for patient oriented x3 GENERAL APPEARANCE: ill appearing and frail appearing HENMT: COMMON NORMALS: normocephalic and atraumatic HEAD & SCALP: n ormocephalic and atraumatic Eye: COMMON NORMALS: Equal, round and reactive pupils present and EOMs intact bilaterally PUPIL: Yes Equal, round and reactive pupils present Neck/C-Spine: COMMON NORMALS: full ROM and supple Chest: COMMONS NORMALS: normal inspection of the chest and normal palpation of entire chest wall Resp: EFFORT & INSPECTION: Yes tachypneic and Yes respiratory distress Cardio: COMMON NORMALS: regular rate, regular rhythm and No murmurs present (Cardio) RATE: regular rate RHYTHM: regular rhythm GI: COMMON NORMALS: Normal to inspection, nondistended, normoactive bowel sounds present, Soft to palpation, non-tender and no masses PALPATION: Yes Soft to palpation Extremity: COMMON NORMALS: normal to inspection and full ROM Neuro: COMMON NORMALS: moves all extremities and no focal motor deficits; negative for patient oriented x3 Psych: COMMON NORMALS: cooperative; negative for mental status grossly normal Skin: COMMON NORMALS: no rashes or lesions noted and no wounds GENERAL SKIN EXAM: no rashes or lesions noted Course 2 Vital Signs: Vital signs: Vital Signs Pulse Rate 67 08/28/24 00:56 Respiratory Rate 40 H 08/28/24 00:56 Blood Pressure 111/60 08/28/24 00:56 Pulse Oximetry 95 08/28/24 00:56 Oxygen Delivery Me thod BiPAP 08/28/24 00:56 Fraction of Inspir ed Oxygen 60 08/27/24 23:41 MDM - SOB/Dyspnea Medical Decision Making Patient presents here with hypoxia altered mental status also has COVID- pneumonia. She is placed on a BiPAP I spoke to the hospitalist will admit at this time Medical Records I reviewed the patient's medical records. Lab Data I reviewed the patient's lab results. 08/27/24 23:36 08/27/24 23:36 Labs/Radiology: Radiology Impressions Chest CTA 08/27/24 23:29 IMPRESSION: 1. Exam compared with 08/05/2024. 2. Considerably progressive areas of diffuse bilateral atelectasis, edema or developing pneumonia/pneumonitis. 3. Progressive small bilateral pleural effusions. 4. Underlying very severe lung scarring again noted. 5. Unimproved, severe widespread osseous metastases. 6. No obvious PE. In this regard the exam is challenging. See above. 7. A few chronic/incidental findings above. COMMENTS: Consistent with the [employer]'s Incidental Findings Committee white paper (J Am Sara Radiol 2018): Any incidental renal lesion less than 1 cm or classified as too small to characterize, or any incidental cystic renal lesion characterized as simple-appearing, is likely benign. No follow-up imaging is recommended for these lesions per consensus recommendations based on imaging criteria. Chest X-Ray 08/27/24 23:29 IMPRESSION: As above. Head CT 08/27/24 23:31 IMPRESSION: 1. There are no acute intracranial findings. 2. Diffuse lytic and sclerotic metastatic lesions the visualized osseous structures. 3. Bilateral nasal fractures Laboratory Results WBC 3.75 10^3/uL (3.29-11.43) 08/27/24 23:36 RBC 2.87 10^6/uL (3.85-5.65) L 08/27/24 23:36 Hgb 9.90 g/dL (11.27-16.99) L 08/27/24 23:36 Hct 30.1 % (36-47) L 08/27/24 23:36 MCV 104.9 fl (85-98) H 08/27/24 23:36 MCH 34.5 pg (27-33) H 08/27/24 23:36 MCHC 32.9 g/dL (30-55) 08/27/24 23:36 RDW 20.9 % (12.1-15.1) H 08/27/24 23:36 Plt Count 218 10^3/cmm (157-399) 08/27/24 23:36 MPV 9.2 fL (7.4-10.4) 08/27/24 23:36 Neut % (Auto) 71.0 % 08/27/24 23:36 Lymph % (Auto) 20.5 % 08/27/24 23:36 [place] % (Auto) 5.6 % 08/27/24 23:36 Eos % (Auto) 0.5 % 08/27/24 23:36 Baso % (Auto) 0.5 % 08/27/24 23:36 Neut # (Auto) 2.66 10^3/uL (1.8-7.7) 08/27/24 23:36 Lymph # (Auto) 0.8 10^3/uL (0.8-4.8) 08/27/24 23:36 [place] # (Auto) 0.2 10^3/uL (0.2-0.9) 08/27/24 23:36 Eos # (Auto) 0.0 10^3/uL (0.0-0.8) 08/27/24 23:36 Baso # (Auto) 0.0 10^3/uL (0.0-0.1) 08/27/24 23:36 Nucleated RBC % (auto) 0.5 % 08/27/24 23:36 Nucleated RBCs # 0.0 /100WBC 08/27/24 23:36 PT 17.80 SECONDS (12.1-14.9) H 08/27/24 23:36 INR 1.42 (0.8-1.2) H 08/27/24 23:36 Specimen Type Arterial 08/27/24 23:30 Sample Site Radial, left 08/27/24 23:30 ABG pH 7.38 (7.35-7.45) 08/27/24 23:30 ABG pCO2 26.9 mmHg (35-45) L 08/27/24 23:30 ABG pO2 218.0 mmHg (80.0-100.0) H 08/27/24 23:30 ABG PO2/FiO2 Ratio 363 08/27/24 23:30 ABG HCO3 16.0 mmol/L (22-26) L 08/27/24 23:30 ABG Base Excess -7.9 mmol/L (-2.0-2.0) L 08/27/24 23:30 Bishnu Test Pos 08/27/24 23:30 Hematocrit 30.4 % (37-47) L 08/27/24 23:30 Hgb O2 Saturation 97.4 % (95-100) 08/27/24 23:30 Carboxyhemoglobin 1.2 %THgb (0.4-20.1) 08/27/24 23:30 Methemoglobin 1.1 % (0.4-1.5) 08/27/24 23:30 Total Hemoglobin 9.9 g/dL (12-16) L 08/27/24 23:30 O2 Delivery Device Bipap 08/27/24 23:30 FiO2 60.0 % 08/27/24 23:30 Plant Production Manager ID [email or web address] 08/27/24 23:30 Sodium 136 mmol/L (136-145) 08/27/24 23:36 Potassium 4.2 mmol/L (3.5-5.1) 08/27/24 23:36 Chloride 102 mmol/L (98-107) 08/27/24 23:36 Carbon Dioxide 17 mmol/L (22-29) L 08/27/24 23:36 Anion Gap 21.2 (5-19) H 08/27/24 23:36 BUN 20 mg/dL (8-23) 08/27/24 23:36 Creatinine 0.9 mg/dL (0.5-0.9) 08/27/24 23:36 GFR Calculation Not Reportable 08/27/24 23:36 Glucose 111 mg/dL (65-115) 08/27/24 23:36 Calculated Osmolality 285 mOsm/kg (285-295) 08/27/24 23:36 Calcium 7.6 mg/dL (8.5-10.5) L 08/27/24 23:36 Total Bilirubin 0.6 mg/dL (0.15-1.2) 08/27/24 23:36 AST 73 U/L (0-32) H 08/27/24 23:36 ALT 17 U/L (0-33) 08/27/24 23:36 Alkaline Phosphatase 141 U/L (35-105) H 08/27/24 23:36 Troponin T Baseline 420 ng/L (0-10) H* 08/27/24 23:36 Troponin T 120 Minute 423.4 ng/L (0-10) H 08/28/24 01:25 Delta Troponin T 3.4 ABS# (0-10) 08/28/24 01:25 NT-Pro-B Natriuret Pep 2994 pg/mL (0-450) H 08/27/24 23:36 Total Protein 5.7 g/dL (6.6-8.7) L 08/27/24 23:36 Albumin 3.4 g/dL (3.5-5.2) L 08/27/24 23:36 Globulin 2.3 g/dL (1.3-4.6) 08/27/24 23:36 All radiology interpretation(s) finalized by discharge EKG Data EKG 1: I personally reviewed and interpreted this EKG as follows: EKG Interpretation Date: 08/27/24 EKG interpretation time: 23:33 Interpretation: sinus tani hr [address] elevation qrs 73 qtc 465 Critical Care Time 2 Critical Care Time: Critical Care Time: Yes Total Critical Care Time: 40 Attestation: The high probability of a clinically significant, sudden or life threatening deterioration of the patient's respsystem(s) required my full and direct attention, intervention and personal management. The critical care time is as shown. This time is in addition to time spent performing any reported procedures but includes the following: [x] Data and vital sign review and interpretation [x] Patient assessment, examination and intervention [x] Documentation [x] Medication orders and management Discharge Plan Discharge Patient Disposition: Admitted As Inpatient Clinical Impression: Pneumonia due to COVID-19 virus, Acute respiratory failure with hypoxemia Condition: Stable Prescriptions: No Action calcium w/ vitamin D 3 tab PO DAILY acetaminophen [Tylenol Arthritis Pain] 650 mg tablet extended release 650 mg PO Q8H PRN (Reason: Pain) Salonpas 3.1-10-6 % adhesive patch,medicated 1 patch topical DAILY PRN (Reason: pain) Rx Instructions: may leave on area for up to 8 hrs fluoxetine [Prozac] 40 mg capsule 40 mg PO DAILY pantoprazole [Protonix] 40 mg tablet,delayed release (DR/EC) 40 mg PO BID 30 Days Qty: 60 11RF acetaminophen-codeine 300-30 mg tablet 1 tab PO Q4H PRN ferrous sulfate 324 mg (65 mg iron) tablet,delayed release (DR/EC) 324 mg PO DAILY ipratropium bromide 42 mcg (0.06 %) spray,non-aerosol 2 spray intranasal DAILY Rx Instructions: administer into each nostril folic acid 1 mg tablet PO prednisone 5 mg tablet 5 mg PO DIRECTED Qty: 10 0RF Rx Instructions: take 1 tab twice a day for 2 days then take 1 tab daily lidocaine-prilocaine 2.5-2.5 % cream 1 applic topical ONCE PRN (Reason: pain) Qty: 30 0RF Rx Instructions: Apply 30-45 minutes prior to port access Verzenio 100 mg tablet See Rx Instructions .ROUTE .COMPLEX Qty: 56 0RF Dose Instruction: TAKE ONE TABLET BY MOUTH TWICE DAILY Rx Instructions: TAKE ONE TABLET BY MOUTH TWICE DAILY Referrals: Carolyn Pires DO [Primary Care Provider] - Coding Level of Care Code ED Desktop Operator for Josiah Wellington
[2024-08-27 23:41] VITALS: PULSE 72; RESP 39; O2SAT 100
[2024-08-27 23:41] LABS: ABG PCO2 26.9 mmHg (35-45); ABG PH Result 7.38 (7.35-7.45); Arterial Blood Gas Hematocrit 30.4 % (37-47); Base Excess ABG -7.9 mmol/L (-2.0-2.0); Blood Gas Allen Test Pos; Blood Gas Sample Site Radial, left; Blood Gas Sample Type Arterial; Carboxyhemoglobin 1.2 %THgb (0.4-20.1); HGB O2 Sat 97.4 % (95-100); Methemoglobin 1.1 % (0.4-1.5); Oxygen Device BIPAP; PO2 FiO2 Ratio Arterial Blood 363; Total Hemoglobin 9.9 g/dL (12-16)
[2024-08-27 23:46] LABS: Basophils % 0.5 %; Eosinophils % 0.5 %; Hematocrit 30.1 % (36-47); Lymphocytes # 0.8 10^3/uL (0.8-4.8); Lymphocytes % 20.5 %; Mean Corpuscular HGB Conc 32.9 g/dL (30-55); Mean Corpuscular Hemoglobin 34.5 pg (27-33); Mean Corpuscular Volume 104.9 fl (85-98); Mean Platelet Volume 9.2 fL (7.4-10.4); Monocytes # 0.2 10^3/uL (0.2-0.9); Monocytes % 5.6 %; Neutrophils # 2.66 10^3/uL (1.8-7.7); Nucleated Red Blood Cells % 0.5 %; Platelet Count 218 10^3/cmm (157-399); Red Blood Count 2.87 10^6/uL (3.85-5.65); Red Cell Distribution Width 20.9 % (12.1-15.1); White Blood Count 3.75 10^3/uL (3.29-11.43)
[2024-08-27] MEDS: methylPREDNISolone sod succ 125 mg/2 mL INJ IVP (23:53)
[2024-08-27] MEDS: diphenhydrAMINE 50 mg/mL SDV 1mL IVP (23:53)
[2024-08-27 23:59] LABS: INR 1.42 (0.8-1.2)
[2024-08-28] VITALS (33 sets, daily range): BP systolic 97–142; BP diastolic 40–63; PULSE 60–99; RESP 16–56; TEMP 35.9–37.2; O2SAT 80–100; BMI 23.6
[2024-08-28 00:18] LABS: Alanine Aminotransferase 17 U/L (0-33); Albumin Level 3.4 g/dL (3.5-5.2); Alkaline Phosphatase 141 U/L (35-105); Anion Gap 21.2 (5-19); Aspartate Amino Transferase 73 U/L (0-32); Blood Urea Nitrogen 20 mg/dL (8-23); Calcium 7.6 mg/dL (8.5-10.5); Carbon Dioxide 17 mmol/L (22-29); Chloride 102 mmol/L (98-107); Creatinine Clr Calc Pharmacy 34.9101; Globulin 2.3 g/dL (1.3-4.6); Glucose 111 mg/dL (65-115); NT Pro B Type Natriuretic Pept 2994 pg/mL (0-450); Osmolality Calculated 285 mOsm/kg (285-295); Potassium 4.2 mmol/L (3.5-5.1); Sodium 136 mmol/L (136-145); Total Bilirubin 0.6 mg/dL (0.15-1.2); Total Protein 5.7 g/dL (6.6-8.7)
[2024-08-28 00:19] LABS: Troponin(5th) Baseline 420 ng/L (0-10)
[2024-08-28] MEDS: iohexol 350 mg/mL 500 mL Btl (per mL) IV (00:38)
[2024-08-28] MEDS: cefTRIAXone 1,000 mg SDV 1000 MG IVP (00:52)
[2024-08-28] MEDS: AZITHROMYCIN ADD-Vantage 500 MG in 0.9% NaCl ADD-Vantage 250 ML 250 MG IV (00:54)
--- NOTE | 2024-08-28 01:42 | ECG_ITS ---
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 Measurements Intervals [place] Rate: 63 P: 57 RI: 139 QRS: 55 QRSD: 76 T: 53 QT: 480 QTc: 491 Interpretive Statements SINUS RHYTHM MINIMAL ST DEPRESSION [0.025+ mV ST DEPRESSION] PROLONGED QT INTERVAL Compared to ECG 08/27/2024 23:33:16 Prolonged QT interval now present Sinus bradycardia no longer present ST (T wave) deviation still present Electronically Signed On 08-28-2024 10:31:59 SENIOR MARKETING ASSOCIATE by Chris Spencer M.D. [email or web address]
[2024-08-28 01:52] LABS: Troponin 5 2HR Delta 3.4 ABS# (0-10)
--- NOTE | 2024-08-28 01:52 | PC.NURSE ---
Daughter's contact info is [phone]- Barbi. Updated her on pt status. States she is on her way from [place].
[2024-08-28 01:54] LABS: Troponin 5 2HR 423.4 ng/L (0-10)
--- NOTE | 2024-08-28 02:24 | P.HP_ITS ---
Providers/Chief Complaint 2 Primary Care Provider: Carolyn Pires DO Chief Complaint: SOB History of Present Illness Yessenia George is a 78 year old female with past medical history significant for rheumatoid arthritis, metastatic breast cancer, radiation-induced angiosarcoma of breast, anemia, chronic hypoxic respiratory failure, multiple other comorbidities who presents emergency department with shortness of breath and respiratory distress. Upon evaluation, patient is in a lethargic state. She is unable provide much history. She does arouse appropriately. Further collateral information collected from ED provider as well as chart review. Patient recently been diagnosed with COVID-19 on 08/24. Patient was picked up by EMS on 08/27. EMS found patient only oriented to self. Her SpO2 was in the 40s per EMS report. In the emergency department, patient was found to be tachypneic. She was ultimately placed on BiPAP for work of breathing. Chest CTA showed progressive areas of diffuse by basilar atelectasis, edema or developing pneumonia/pneumonitis with progressively small bilateral pleural effusions. Review of Systems 2 Narrative: A complete review of systems was obtained and is negative except as stated in HPI. Medications/Allergies Home Medications Medication Instructions Recorded Confirmed Last Taken Type fluoxetine 40 mg capsule (Prozac) 40 mg PO DAILY 07/14/20 08/19/24 01/26/24 History acetaminophen 650 mg 650 mg PO Q8H PRN Pain 08/01/20 08/19/24 01/25/24 History tablet,extended release (Tylenol Arthritis Pain) calcium w/ vitamin D 3 tab PO DAILY 08/01/20 08/19/24 01/26/24 History lidocaine-prilocaine 2.5 %-2.5 % 1 applic topical ONCE PRN pain #30 05/27/23 08/19/24 Unknown Rx topical cream grams camphor 3.1 %-methyl salicylate 10 1 patch topical DAILY PRN pain 08/07/23 08/19/24 01/25/24 History %-menthol 6 % topical patch (Salonpas) pantoprazole 40 mg tablet,delayed 40 mg PO BID 30 days #60 tabs 02/09/24 08/19/24 Unknown Rx release (Protonix) acetaminophen 300 mg-codeine 30 mg 1 tab PO Q4H PRN 06/24/24 08/19/24 Unknown History tablet ferrous sulfate 324 mg (65 mg 324 mg PO DAILY 06/24/24 08/19/24 Unknown History iron) tablet,delayed release ipratropium bromide 42 mcg (0.06 2 spray intranasal DAILY 06/24/24 08/19/24 Unknown History %) nasal spray abemaciclib 100 mg tablet See Rx Instructions .Route 08/02/24 08/19/24 Unknown Rx (Verzenio) .COMPLEX #56 tabs folic acid 1 mg tablet PO 08/19/24 08/19/24 Unknown History prednisone 5 mg tablet 5 mg PO DIRECTED #10 tabs 08/19/24 08/19/24 Unknown Rx Allergies Allergy/AdvReac Type Severity Reaction Status Date / Time contact metal agent Allergy Severe ALGY-Rash Verified 08/24/24 20:13 Iodinated Contrast Media Allergy Severe ALGY-Hives Verified 08/24/24 20:13 Iodine and Iodide Containing Allergy hives/hard Verified 08/24/24 20:13 Produc to breathe PFSH Acute 2 PFSH: Medical History Osteoarthritis Fibromyalgia Depression Breast cancer Anemia Radiation-induced angiosarcoma of breast Surgical History History of hysterectomy with unilateral oophorectomy History of right mastectomy (05/05/23) Hx of shoulder surgery left shoulder Hx of right knee surgery Hx of tonsillectomy Hx of lumpectomy (2014) Right breast lumpectomy with axillary lymph node dissection followed by reexcision lumpectomy Hx of carpal tunnel repair bilateral Family History Grandmother CAD (coronary artery disease) Denies family history of Anesthesia complication Bleeding disorder Family history of premature coronary artery disease Cancer Social History Smoking and tobacco/nicotine status: former use of tobacco/nicotine Quit status (tobacco/nicotine): has quit using Year quit tobacco: 1991 Former quit date comment: smoked x 20 years Alcohol intake: never Substance/Drug Use: never Lives independently: Yes Vitals/I&O/Wt Last Vital Signs Pulse 67 08/28/24 00:56 Resp 40 H 08/28/24 00:56 BP 111/60 08/28/24 00:56 Pulse Ox 95 08/28/24 00:56 O2 Del Method BiPAP 08/28/24 00:56 FiO2 60 08/27/24 23:41 Weight last 48 hrs Weight 40.823 kg Physical Exam 2 Narrative: General: Patient is lethargic. Arouses but quickly goes back to sleep. Frail- appearing. Head: Normocephalic. Atraumatic. Neck: No JVD. Cardiovascular: RRR. No gallops. No murmurs. No peripheral edema. Lungs: Moderate respiratory distress. Bilateral rhonchi. No wheezing. Dependent crackles. Tachypneic. On BiPAP. Skin: No jaundice. No rashes. Abdomen: Normal bowel sounds, abdomen soft and nontender. Genito Urinary: Genital exam not performed since complaints not related. Rectal: Rectal exam not performed since no symptoms indicated blood loss. Extremities: No cyanosis or clubbing. Musculoskeletal: No swollen or erythematous joints. Neurological: Lethargic. No myoclonus. Data 08/27/24 23:36 08/27/24 23:36 A&P Assessment and plan (1) Acute respiratory failure with hypoxemia: Acute on chronic hypoxic respiratory failure requiring noninvasive mechanical ventilation Treat underlying pneumonia and COVID-19 Start scheduled breathing treatments Encourage pulmonary toilet (2) Pneumonia due to COVID-19 virus: Take appropriate precautions Start dexamethasone 6 mg IV daily Breathing treatments (3) Community acquired pneumonia: Check procalcitonin and CRP Bacterial antigens Start ceftriaxone and azithromycin Sputum culture (4) Acute metabolic encephalopathy: Treat underlying infection Avoid sedating medications (5) Elevated troponin: Delta troponin unremarkable EKG reviewed Obtain echo (6) Elevated brain natriuretic peptide (BNP) level: Check echocardiogram Strict I&Os Daily weights (7) Transaminitis: Trend (8) Breast cancer: 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 Coding Level of Care Code Acute Code for Chg Fwd Diagnoses Acute respiratory failure with hypoxemia J96.01 Pneumonia due to COVID-19 virus U07.1; J12.82 Community acquired pneumonia J18.9 Acute metabolic encephalopathy G93.41 Elevated troponin R79.89 Elevated brain natriuretic peptide (BNP) level R79.89 Transaminitis R74.01 Breast cancer C50.919 GERD (gastroesophageal reflux disease) K21.9
--- NOTE | 2024-08-28 02:29 | PM.HP ---
Providers/Chief Complaint Primary Care Provider: Carolyn Pires DO Chief Complaint: SOB History of Present Illness Yessenia George is a 78 year old female Medications/Allergies Home Medications Medication Instructions Recorded Confirmed Last Taken Type fluoxetine 40 mg capsule (Prozac) 40 mg PO DAILY 07/14/20 08/19/24 01/26/24 History acetaminophen 650 mg 650 mg PO Q8H PRN Pain 08/01/20 08/19/24 01/25/24 History tablet,extended release (Tylenol Arthritis Pain) calcium w/ vitamin D 3 tab PO DAILY 08/01/20 08/19/24 01/26/24 History lidocaine-prilocaine 2.5 %-2.5 % 1 applic topical ONCE PRN pain #30 05/27/23 08/19/24 Unknown Rx topical cream grams camphor 3.1 %-methyl salicylate 10 1 patch topical DAILY PRN pain 08/07/23 08/19/24 01/25/24 History %-menthol 6 % topical patch (Salonpas) pantoprazole 40 mg tablet,delayed 40 mg PO BID 30 days #60 tabs 02/09/24 08/19/24 Unknown Rx release (Protonix) acetaminophen 300 mg-codeine 30 mg 1 tab PO Q4H PRN 06/24/24 08/19/24 Unknown History tablet ferrous sulfate 324 mg (65 mg 324 mg PO DAILY 06/24/24 08/19/24 Unknown History iron) tablet,delayed release ipratropium bromide 42 mcg (0.06 2 spray intranasal DAILY 06/24/24 08/19/24 Unknown History %) nasal spray abemaciclib 100 mg tablet See Rx Instructions .Route 08/02/24 08/19/24 Unknown Rx (Verzenio) .COMPLEX #56 tabs folic acid 1 mg tablet PO 08/19/24 08/19/24 Unknown History prednisone 5 mg tablet 5 mg PO DIRECTED #10 tabs 08/19/24 08/19/24 Unknown Rx Allergies Allergy/AdvReac Type Severity Reaction Status Date / Time contact metal agent Allergy Severe ALGY-Rash Verified 08/24/24 20:13 Iodinated Contrast Media Allergy Severe ALGY-Hives Verified 08/24/24 20:13 Iodine and Iodide Containing Allergy hives/hard Verified 08/24/24 20:13 Produc to breathe PFSH Acute PFSH: Medical History Osteoarthritis Fibromyalgia Depression Breast cancer Anemia Radiation-induced angiosarcoma of breast Surgical History History of hysterectomy with unilateral oophorectomy History of right mastectomy (05/05/23) Hx of shoulder surgery left shoulder Hx of right knee surgery Hx of tonsillectomy Hx of lumpectomy (2014) Right breast lumpectomy with axillary lymph node dissection followed by reexcision lumpectomy Hx of carpal tunnel repair bilateral Family History Grandmother CAD (coronary artery disease) Denies family history of Anesthesia complication Bleeding disorder Family history of premature coronary artery disease Cancer Social History Smoking and tobacco/nicotine status: former use of tobacco/nicotine Quit status (tobacco/nicotine): has quit using Year quit tobacco: 1991 Former quit date comment: smoked x 20 years Alcohol intake: never Substance/Drug Use: never Lives independently: Yes Vitals/I&O/Wt Last Vital Signs Pulse 67 08/28/24 00:56 Resp 40 H 08/28/24 00:56 BP 111/60 08/28/24 00:56 Pulse Ox 95 08/28/24 00:56 O2 Del Method BiPAP 08/28/24 00:56 FiO2 60 08/27/24 23:41 Weight last 48 hrs Weight 40.823 kg Data 08/27/24 23:36 08/27/24 23:36 Coding Level of Care Code Acute Code for Chg Fwcristel
[2024-08-28 02:59] LABS: C Reactive Protein 120.9 mg/L (0.0-4.9)
--- NOTE | 2024-08-28 03:39 | USCV_ITS ---
Yessenia George Age: 78 Gender: F : 1945 Exam Date: 08/28/2024 11:22 Ordering Phys: Placido Teran MD Technologist: Aravind Richards [place] [facility] [place] resp distress BP: 105 / 49 HR: 70 Rhythm: Sinus Technical Quality: Adequate MEASUREMENTS (Male / Female) Normal Values 2D ECHO LV Diastolic Diameter PLAX 4.2 cm 4.2 - 5.9 / 3.9 - 5.3 cm IVS Diastolic Thickness 1.0 cm 0.6 - 1.0 / 0.6 - 0.9 cm IVS Systolic Thickness 1.6 cm LVPW Diastolic Thickness 1.4 cm 0.6 - 1.0 / 0.6 - 0.9 cm LVPW Systolic Thickness 1.5 cm LVOT Diameter 2.1 cm LV Ejection Fraction 2D Teich 55.4 % LV Ejection Fraction MOD 4C 65.1 % LV Ejection Fraction MOD 2C 74.7 % LV Ejection Fraction 2C AL 75.2 % LA Diameter 3.3 cm RA Systolic Volume 4C AL 25.4 ml RA Systolic Volume 4C MOD 26.0 ml LA Sys Volume AL 29.7 cm cubed LA Sys Volume Index AL 19.4 cm cubed/m squared Aorta at Sinotubular Diameter 2.7 cm IVC Diameter 1.7 cm M-MODE LA Ao Ratio MM 1.0 AV Cusp Separation MM 1.8 cm DOPPLER AV Peak Velocity 189.0 cm/s LVOT Peak Velocity 122.0 cm/s AV Area Cont Eq vti 2.2 cm squared AV Area Cont Eq pk 2.3 cm squared MV Peak Velocity 89.0 cm/s MV Area PHT 3.8 cm squared Mitral E to A Ratio 0.8 TV Peak Velocity 383.7 cm/s TR Peak Velocity 417.5 cm/s TR Peak Gradient 69.7 mmHg TR Mean Velocity 312.0 cm/s TR Mean Gradient 41.6 mmHg TR Velocity Time Integral 121.8 cm PV Peak Velocity 121.0 cm/s RV Ejection Time 0.3 s FINDINGS Left Ventricle Left ventricle is normal size. LV systolic function is normal with EF of 55- 60%. No regional wall motion abnormalities are seen. Grade 1 diastolic dysfunction Right Ventricle Normal in size and function Right Atrium Normal in size Left Atrium Normal in size Mitral Valve Structurally normal mitral valve. Mild mitral regurgitation Aortic Valve Structurally normal aortic valve. No significant aortic stenosis. Mild aortic regurgitation. Tricuspid Valve Mild tricuspid regurgitation. RVSP is 40-45 mmHg. This is consistent with mild pulmonary hypertension Pulmonic Valve Trace pulmonic regurgitation Pericardium Normal Aorta Ascending aorta is mildly dilated with diameter of 3.57cm IVC Normal in size CONCLUSIONS LV systolic function is normal with EF of 55-60%. Grade 1 diastolic dysfunction Mild mitral regurgitation Mild aortic regurgitation Mild tricuspid regurgitation Mild pulmonary hypertension Trace pulmonary regurgitation Ascending aorta is mildly dilated with diameter of 3.57cm Chris Spencer MD (Electronically Signed) Final Date: 28 August 2024 12:29 S
[2024-08-28] MEDS: ipratropium-albuterol 3 mL Neb INHALATION ×5 (03:50→20:32)
[2024-08-28] MEDS: enoxaparin 40 mg/0.4 mL Syringe SUBCUT (04:14)
--- NOTE | 2024-08-28 04:50 | PC.NURSE ---
Patient poor historian. Only one to two word occasional muttered answers. Confusion noted, no family at this time to answer questions. Family- daughter in route from [place] per ER staff.
--- NOTE | 2024-08-28 05:45 | ECG_ITS ---
[facility] Test Date: 2024-08-28 Pat Name: Yessenia George Department: Room: ICU11 Gender: Female Speech Coach: : 1945 Requested By: Marty Duque Order Number: [id number] Mario MD: Chris Spencer M.D. Measurements Intervals [place] Rate: 86 P: 49 DC: 154 QRS: 32 QRSD: 74 T: 38 QT: 421 QTc: 504 Interpretive Statements SINUS RHYTHM MODERATE ST DEPRESSION [0.05+ mV ST DEPRESSION] Compared to ECG 08/28/2024 02:16:10 Prolonged QT interval no longer present ST (T wave) deviation still present Electronically Signed On 08-28-2024 10:31:54 DIMENSION SPECIFICATION INSPECTOR by Chris Spencer M.D. [email or web address]
[2024-08-28 06:32] LABS: Troponin 5 6HR 449.6 ng/L (0-10); Troponin 5 6HR Delta 29.6 ng/L (0-12)
[2024-08-28] MEDS: dexamethasone 10 mg/mL INJ 6 MG IVP (07:52)
[2024-08-28] MEDS: budesonide 0.5 mg/2 mL Neb INHALATION ×2 (08:10→20:32)
--- NOTE | 2024-08-28 08:48 | PC.NURSE ---
0815 -- Daughter and family at bedside, isolation precautions followed. Family to waiting room waiting to talk with MD this AM. 9538 -- Dr. Brown to bedside making rounds, notified that daughter is in the waiting room and would like to talk with doctor.
[2024-08-28] MEDS: sodium chloride 0.9% 1,000 ML 70 ML IV ×2 (09:31→23:52)
[2024-08-28] MEDS: remdesivir 200 MG in sodium chloride 0.9% (100 ml) 60 ML 100 MG IV (10:36)
--- NOTE | 2024-08-28 10:51 | PM.PN ---
Subjective Subjective: Seen her at bedside this morning. Still c/o weakness and not feeling well. Spoke to family and explained in details about diagnosis and plan of care. Medications: Reviewed: Yes Vitals/I&O/Wt Last Vital Signs Temp 98.9 F 08/28/24 08:00 Pulse 63 08/28/24 08:00 Resp 20 H 08/28/24 08:00 BP 105/49 08/28/24 08:00 Pulse Ox 93 08/28/24 08:00 O2 Del Method Heated High Flow 08/28/24 08:00 O2 Flow Rate 50 08/28/24 08:00 FiO2 50 08/28/24 08:00 08/27/24 08/28/24 08/28/24 22:59 06:59 14:59 Intake Total 250 / 250 0 / 0 Output Total 0 / 0 Balance 250 / 250 0 / 0 Weight last 48 hrs Weight 55 kg Weight 40.823 kg Physical Exam Narrative: General: Patient is lethargic. Arouses but quickly goes back to sleep. Frail-appearing. Cardiovascular: RRR. No gallops. No murmurs. No peripheral edema. Lungs: Moderate respiratory distress. Bilateral rhonchi. No wheezing. Dependent crackles. . Abdomen: Normal bowel sounds, abdomen soft and nontender. Extremities: No cyanosis or clubbing. Neurological: Lethargic. No myoclonus. Urinary Catheter Management: Laureano: Cath Placed During This Visit: yes Urinary Catheter Date of Insertion: 08/28/24 Urinary Catheter Time of Insertion: 10:20 Data 08/27/24 23:36 08/27/24 23:36 Micro: Microbiology 08/28/24 06:00 Blood Culture - Preliminary Blood SPECIMEN COLLECTED 08/27/24 23:36 Blood Culture - Preliminary Blood SPECIMEN COLLECTED A&P Assessment and plan (1) Acute respiratory failure with hypoxemia: Acute on chronic hypoxic respiratory failure requiring noninvasive mechanical ventilation Treat underlying pneumonia and COVID-19 Start scheduled breathing treatments Encourage pulmonary toilet (2) Pneumonia due to COVID-19 virus: Take appropriate precautions Start dexamethasone 6 mg IV daily Breathing treatments (3) Community acquired pneumonia: Check procalcitonin and CRP Bacterial antigens Start ceftriaxone and azithromycin Sputum culture (4) Acute metabolic encephalopathy: Treat underlying infection Avoid sedating medications (5) Elevated troponin: Delta troponin unremarkable EKG reviewed Obtain echo (6) Elevated brain natriuretic peptide (BNP) level: Check echocardiogram Strict I&Os Daily weights (7) Transaminitis: Trend (8) Breast cancer: 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 Upon evaluation, patient is in a lethargic state. Currently on Iv dexamethasone, ceftriaxone and azithromycin. Elevated troponins likely secondary to demand ischemia, will R/o ACS need cardiology eval, f/up ECHO Will add IV remdesivir 100mg daily for 5 days. Continue high flow o2 to keep saturation more than 90%. Family updated, explained in details and counseled about plan of care. Continue to monitor in ICU. Attestations Medical Necessity Statement*: Patient presents with altered mental status and respiratory distress in the setting of recently diagnosed COVID-19 infection found to have acute on chronic hypoxic respiratory failure with pneumonia with expected hospitalization not to cross two midnights for IV steroids, IV abx, respiratory support, breathing treatments and supportive care. Time Spent in Patient Care: 60minutes Coding Level of Care Code Acute Code for [facility] Fwd Diagnoses Acute respiratory failure with hypoxemia J96.01 Pneumonia due to COVID-19 virus U07.1; J12.82 Community acquired pneumonia J18.9 Acute metabolic encephalopathy G93.41 Elevated troponin R79.89 Elevated brain natriuretic peptide (BNP) level R79.89 Transaminitis R74.01 Breast cancer C50.919 GERD (gastroesophageal reflux disease) K21.9 Time Spent (min) 60
--- NOTE | 2024-08-28 17:41 | PC.NURSE ---
Family to bedside, updated on patient states. Daughter states that her sister will be here tomorrow and they will make a decision about code status but her sister is an RN and she does not want her to be intubated. Explained to the patients daughter that as of right now if she needed to be intubated that is what would be done and she may get a call if the patient declines during the night and requires intubation. Daughter Barbi states that she understands and she will have her phone on at all times.
--- NOTE | 2024-08-28 18:00 | PC.NURSE ---
Updated Dr. Brink on patients O2 sats decreasing more with minimal exertion and patient taking longer for O2 sats to recover. Notified that the daughter Adwoa came to bedside again and code status discussed with daughter and possibility of patient decline and need for intubation during the night. Dr. Brink states that she would call both daughters and talk with them about patients code status and possible need for intubation and possiblilty of patient not being able to come off of the vent.
[2024-08-29] VITALS (34 sets, daily range): BP systolic 114–161; BP diastolic 49–74; PULSE 7–85; RESP 23–72; TEMP 36.4–37.4; O2SAT 83–100
[2024-08-29] MEDS: ipratropium-albuterol 3 mL Neb INHALATION ×5 (00:28→15:34)
[2024-08-29] MEDS: cefTRIAXone 1,000 mg SDV 1000 MG IVP (01:24)
[2024-08-29] MEDS: AZITHROMYCIN ADD-Vantage 500 MG in 0.9% NaCl ADD-Vantage 250 ML 250 MG IV (02:35)
[2024-08-29] MEDS: enoxaparin 40 mg/0.4 mL Syringe SUBCUT (02:37)
[2024-08-29 04:37] LABS: Basophils % 0.2 %; Hematocrit 27.1 % (36-47); Lymphocytes # 0.3 10^3/uL (0.8-4.8); Lymphocytes % 6.2 %; Mean Corpuscular HGB Conc 32.8 g/dL (30-55); Mean Corpuscular Hemoglobin 34.8 pg (27-33); Mean Corpuscular Volume 105.9 fl (85-98); Mean Platelet Volume 10.3 fL (7.4-10.4); Monocytes # 0.2 10^3/uL (0.2-0.9); Monocytes % 4.4 %; Neutrophils # 4.37 10^3/uL (1.8-7.7); Neutrophils % 87.6 %; Nucleated Red Blood Cells % 0.4 %; Platelet Count 173 10^3/cmm (157-399); Red Blood Count 2.56 10^6/uL (3.85-5.65); Red Cell Distribution Width 21.2 % (12.1-15.1); White Blood Count 4.99 10^3/uL (3.29-11.43)
[2024-08-29 05:03] LABS: Alanine Aminotransferase 15 U/L (0-33); Albumin Level 2.7 g/dL (3.5-5.2); Alkaline Phosphatase 139 U/L (35-105); Anion Gap 20.6 (5-19); Aspartate Amino Transferase 53 U/L (0-32); Blood Urea Nitrogen 24 mg/dL (8-23); Calcium 6.4 mg/dL (8.5-10.5); Carbon Dioxide 15 mmol/L (22-29); Chloride 111 mmol/L (98-107); Creatinine Clr Calc Pharmacy 44.3786; Globulin 2.1 g/dL (1.3-4.6); Glucose 180 mg/dL (65-115); Magnesium 2.1 mg/dL (1.7-2.3); Osmolality Calculated 305 mOsm/kg (285-295); Phosphorus 1.5 mg/dL (2.5-4.5); Potassium 3.6 mmol/L (3.5-5.1); Sodium 143 mmol/L (136-145); Total Bilirubin 0.4 mg/dL (0.15-1.2); Total Protein 4.8 g/dL (6.6-8.7)
--- NOTE | 2024-08-29 06:00 | XRR_ITS ---
PROCEDURE INFORMATION: Exam: XR Chest Exam date and time: 08/29/2024 6:02 AM Age: 78 years old Clinical indication: Other: F/u for pneumonia; Prior surgery; Surgery date: 6+ months; Surgery type: RT mastectomy; Patient HX: F/u for covid pneumonia. History of metastatic breast cancer. TECHNIQUE: Imaging protocol: Radiologic exam of the chest. Views: 1 view. COMPARISON: CT angio chest [place] prot [id number] 08/28/2024 12:23 AM FINDINGS: Lungs: There are bilateral infiltrates worse on the right than on the left. Findings are similar to that seen on prior exam. Pleural spaces: There may be trace pleural effusions. No pneumothorax is identified. Heart/Mediastinum: The heart is enlarged. Bones/joints: Unremarkable. XR/XR chest 1V portable [id number] IMPRESSION: 1. Cardiomegaly. 2. Bilateral infiltrates worse on the right. Findings are similar to that seen on prior exam. 3. Possible trace pleural effusions.
[2024-08-29] MEDS: dexamethasone 10 mg/mL INJ 6 MG IVP (07:32)
--- NOTE | 2024-08-29 08:23 | P.CONIM_ITS ---
Providers/Reason For Consult 2 Consulting Physician/Specialty*: Chris Spencer MD/ Cardiology Reason for Consult*: Troponin elevation Requesting Physician: Dr Brink Attending Physician: Iris Brink MD Primary Care Provider: Carolyn Pires DO History of Present Illness History of Present Illness Yessenia George is a 78 year old female with past medical history of metastatic breast cancer who was admitted to the hospital with shortness of breath. She was diagnosed with COVID infection on 08/24. Currently on high flow nasal cannula. Cardiology was consulted as troponins were found to be elevated. Baseline was 420 trended to 449 at 6 hours. Patient is drowsy and does not give history. Appears to be confused. Denies chest pain. Echo shows normal LV systolic function. EKG shows normal sinus rhythm with no significant ST T wave changes. Review of Systems 2 General: Reports: ROS unobtainable due to mental status Medications/Allergies Home Medications Medication Instructions Recorded Confirmed Last Taken Type fluoxetine 40 mg capsule (Prozac) 40 mg PO DAILY 07/14/20 08/28/24 01/26/24 History acetaminophen 650 mg 650 mg PO Q8H PRN Pain 08/01/20 08/28/24 01/25/24 History tablet,extended release (Tylenol Arthritis Pain) camphor 3.1 %-methyl salicylate 10 1 patch topical DAILY PRN pain 08/07/23 08/28/24 01/25/24 History %-menthol 6 % topical patch (Salonpas) pantoprazole 40 mg tablet,delayed 40 mg PO BID 30 days #60 tabs 02/09/24 08/28/24 Unknown Rx release (Protonix) ferrous sulfate 324 mg (65 mg 324 mg PO DAILY 06/24/24 08/28/24 Unknown History iron) tablet,delayed release ipratropium bromide 42 mcg (0.06 2 spray intranasal DAILY 06/24/24 08/28/24 Unknown History %) nasal spray folic acid 1 mg tablet 1 mg PO 1XD 08/19/24 08/28/24 Unknown History prednisone 5 mg tablet 5 mg PO DIRECTED #10 tabs 08/19/24 08/28/24 Unknown Rx abemaciclib 100 mg tablet 100 mg PO BID 08/28/24 08/28/24 Unknown History (Verzenio) calcium 600 mg (as 1 tab PO TID 08/28/24 08/28/24 Unknown History carbonate)-vitamin D3 5 mcg (200 unit) tablet Allergies Allergy/AdvReac Type Severity Reaction Status Date / Time contact metal agent Allergy Severe ALGY-Rash Verified 08/24/24 20:13 Iodinated Contrast Media Allergy Severe ALGY-Hives Verified 08/24/24 20:13 Iodine and Iodide Containing Allergy hives/hard Verified 08/24/24 20:13 Produc to breathe Current Medications Generic Name Dose Route Start Last Admin Trade Name Freq PRN Reason Stop Dose Admin Albuterol/Ipratropium 3 ml 08/28/24 04:00 08/29/24 03:26 Ipratropium-Albuterol 3 Ml Neb INHALATION 3 ml Q4H.RESPIRATORY JUNO Administration Budesonide 0.5 mg 08/28/24 08:00 08/28/24 20:32 Budesonide 0.5 Mg/2 Ml Neb INHALATION 0.5 mg BID.RESPIRATORY JUNO Administration Ceftriaxone Sodium 1,000 mg 08/29/24 01:00 08/29/24 01:24 Ceftriaxone 1,000 Mg Sdv IVP 1,000 mg Q24H JUNO Administration Protocol Dexamethasone 6 mg 08/28/24 08:00 08/28/24 07:52 Dexamethasone 10 Mg/Ml Inj IVP 6 mg Q24H JUNO Administration Enoxaparin Sodium 40 mg 08/28/24 03:39 08/29/24 02:37 Enoxaparin 40 Mg/0.4 Ml Syringe SUBCUT 40 mg Q24H JUNO Administration Azithromycin 500 mg/ Sodium 250 mls @ 250 mls/hr 08/29/24 03:00 08/29/24 04:34 Chloride IV Infused 0300 JUNO Infusion Protocol Sodium Chloride 1,000 mls @ 70 mls/hr 08/28/24 09:30 08/28/24 23:52 Sodium Chloride 0.9% IV 70 mls/hr .[id number] JUNO Administration PFSH Acute 2 PFSH: Medical History Osteoarthritis Fibromyalgia Depression Breast cancer Anemia Radiation-induced angiosarcoma of breast Surgical History History of hysterectomy with unilateral oophorectomy History of right mastectomy (05/05/23) Hx of shoulder surgery left shoulder Hx of right knee surgery Hx of tonsillectomy Hx of lumpectomy (2014) Right breast lumpectomy with axillary lymph node dissection followed by reexcision lumpectomy Hx of carpal tunnel repair bilateral Family History Grandmother CAD (coronary artery disease) Denies family history of Anesthesia complication Bleeding disorder Family history of premature coronary artery disease Cancer Social History Smoking and tobacco/nicotine status: former use of tobacco/nicotine Quit status (tobacco/nicotine): has quit using Year quit tobacco: 1991 Former quit date comment: smoked x 20 years Alcohol intake: never Substance/Drug Use: never Lives independently: Yes Vitals/I&O/Wt Last Vital Signs Temp 97.6 F 08/29/24 04:00 Pulse 78 08/29/24 06:00 Resp 26 H 08/29/24 06:00 BP 138/65 08/29/24 06:00 Pulse Ox 95 08/29/24 06:00 O2 Del Method Heated High Flow 08/29/24 05:00 O2 Flow Rate 50 08/29/24 05:00 FiO2 75 08/29/24 05:00 08/28/24 08/29/24 08/29/24 22:59 06:59 14:59 Intake Total 0 / 160 1250 / 1410 Output Total 600 / 1000 225 / 1225 Balance -600 / -840 1025 / 185 Weight last 48 hrs Weight 123 lb 6.2 oz Weight 121 lb 4.068 oz Weight 90 lb Physical Exam 2 Narrative: GENERAL: Patient is alert, awake and oriented x3. [] NECK: No jugular vein distension. [] HEENT: No cyanosis. No icterus. No pallor. [] HEART: Regular S1 and S2. No murmur, rub or gallop. [] LUNGS: Clear to auscultate bilaterally. [] CENTRAL NERVOUS SYSTEM: Grossly nonfocal. [] EXTREMITIES: Lower extremities with 1+ edema bilaterally. Urinary Catheter Management: Laureano: Cath Placed During This Visit: yes Reason for Continuing Indwelling Catheter: Accurate Measurement of Urinary Output in Critically Ill Patients Urinary Catheter Date of Insertion: 08/28/24 Urinary Catheter Time of Insertion: 10:20 Data 08/30/24 04:03 08/30/24 04:03 Micro: Microbiology 08/28/24 06:00 Blood Culture - Preliminary Blood NEGATIVE TO DATE 08/27/24 23:36 Blood Culture - Preliminary Blood NEGATIVE TO DATE 08/28/24 10:15 Bacterial Antigens - Final Urine,Clean Catch A&P Assessment and plan (1) Elevated troponin: (2) Elevated brain natriuretic peptide (BNP) level: (3) Breast cancer: (4) Acute hypoxic respiratory failure: (5) Pneumonia due to COVID-19 virus: (6) Community acquired pneumonia: Plan Patient has COVID-pneumonia. She had elevated initial troponin with mild increase at 6 hours. This is likely secondary to demand ischemia. No chest pain complaints. EKG does not show significant ischemic changes. LV systolic function is normal. Once patient is stable from respiratory standpoint, can plan on a stress test. Continue medical therapy. Start aspirin. Thank you for involving us with care of this patient. We will continue to follow. Please call with questions. Consult Attestations 2 Medical Necessity Statement: Care expected to cross 2 midnights. Coding Level of Care Code Acute Code for [facility] Fwd Diagnoses Elevated troponin R79.89 Elevated brain natriuretic peptide (BNP) level R79.89 Breast cancer C50.919 Acute hypoxic respiratory failure J96.01 Pneumonia due to COVID-19 virus U07.1; J12.82 Community acquired pneumonia J18.9
[2024-08-29] MEDS: budesonide 0.5 mg/2 mL Neb INHALATION (08:28)
--- NOTE | 2024-08-29 09:35 | PC.NURSE ---
Pt offered apple juice. She is unable to suck up through the straw. She is tachypneic. Offered a sip , she took a sip , held it in her mouth. She was encouraged to swallow, it was delayed. Then she started coughing. Her O2 sats dropped to 83%. Resp rate increased. Distraction offered with TV on, nurse flipping through channels speaking with pt about programs. . Pt reached for remote, gave it to her. At the end of this distraction her O2 sats improved to 92% and She remains tachypneic but rate has decreased to 33.
--- NOTE | 2024-08-29 11:02 | P.PN_ITS ---
Subjective 2 Subjective: No acute overnight events noted. She continues to be on high flow nasal cannula, saturating 95 to 97%. Seen her at bedside this morning, looks more lethargic but able to maintain respiratory status, seems uninterested, responsive only with nodding. Spoke with family, had extensive discussion, her daughters, Suzy and Eri last night. Family okay for CPR and mechanical ventilator if needed and wanted to be informed before intubation. Medications: Reviewed: Yes Vitals/I&O/Wt Last Vital Signs Temp 98.2 F 08/29/24 08:00 Pulse 81 08/29/24 10:00 Resp 36 H 08/29/24 10:00 BP 130/63 08/29/24 10:00 Pulse Ox 93 08/29/24 10:00 O2 Del Method Heated High Flow 08/29/24 10:00 O2 Flow Rate 50 08/29/24 10:00 FiO2 76 08/29/24 10:00 08/28/24 08/29/24 08/29/24 22:59 06:59 14:59 Intake Total 0 / 160 1250 / 1410 Output Total 600 / 1000 225 / 1225 Balance -600 / -840 1025 / 185 Weight last 48 hrs Weight 55.968 kg Weight 55 kg Weight 40.823 kg Physical Exam 2 Narrative: General: Patient is lethargic. Arouses but quickly goes back to sleep. Frail- appearing. Cardiovascular: RRR. No gallops. No murmurs. No peripheral edema. Lungs: Moderate respiratory distress. Bilateral rhonchi. No wheezing. Dependent crackles. . Abdomen: Normal bowel sounds, abdomen soft and nontender. Extremities: No cyanosis or clubbing. Neurological: Lethargic. No myoclonus. Urinary Catheter Management: Laureano: Cath Placed During This Visit: yes Reason for Continuing Indwelling Catheter: Accurate Measurement of Urinary Output in Critically Ill Patients Urinary Catheter Date of Insertion: 08/28/24 Urinary Catheter Time of Insertion: 10:20 Data 08/29/24 04:17 08/29/24 04:17 Micro: Microbiology 08/28/24 06:00 Blood Culture - Preliminary Blood NEGATIVE TO DATE 08/27/24 23:36 Blood Culture - Preliminary Blood NEGATIVE TO DATE 08/28/24 10:15 Bacterial Antigens - Final Urine,Clean Catch A&P Assessment and plan (1) Acute respiratory failure with hypoxemia: Acute on chronic hypoxic respiratory failure requiring noninvasive mechanical ventilation Treat underlying pneumonia and COVID-19 Start scheduled breathing treatments Encourage pulmonary toilet (2) Pneumonia due to COVID-19 virus: Take appropriate precautions Start dexamethasone 6 mg IV daily Breathing treatments (3) Community acquired pneumonia: Check procalcitonin and CRP Bacterial antigens Start ceftriaxone and azithromycin Sputum culture (4) Acute metabolic encephalopathy: Treat underlying infection Avoid sedating medications (5) Elevated troponin: Delta troponin unremarkable EKG reviewed Obtain echo (6) Elevated brain natriuretic peptide (BNP) level: Check echocardiogram Strict I&Os Daily weights (7) Transaminitis: Trend (8) Breast cancer: 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 Upon evaluation, patient is in a lethargic state. Currently on Iv dexamethasone, ceftriaxone and azithromycin. Elevated troponins likely secondary to demand ischemia, will R/o ACS need cardiology eval, f/up ECHO Will add IV remdesivir 100mg daily for 5 days. Continue high flow o2 to keep saturation more than 90%. Family updated, explained in details and counseled about plan of care. Continue to monitor in ICU. 08/29/24 Hemodynamically stable for now, continue current management. Follow-up cardiology for further recommendations. 2D echo reviewed, showed EF of 55 to 60%, ascending aortic diameter 3.5 cm Hemoglobin trending down to 8.9, check vitamin B12 in a.m. Continue to monitor in ICU Attestations 2 Medical Necessity Statement*: Patient presents with altered mental status and respiratory distress in the setting of recently diagnosed COVID-19 infection found to have acute on chronic hypoxic respiratory failure with pneumonia with expected hospitalization not to cross two midnights for IV steroids, IV abx, respiratory support, breathing treatments and supportive care. Time Spent in Patient Care: 30minutes Coding Level of Care Code Critical Care >/= 30 minutes Diagnoses Acute respiratory failure with hypoxemia J96.01 Pneumonia due to COVID-19 virus U07.1; J12.82 Community acquired pneumonia J18.9 Acute metabolic encephalopathy G93.41 Elevated troponin R79.89 Elevated brain natriuretic peptide (BNP) level R79.89 Transaminitis R74.01 Breast cancer C50.919 GERD (gastroesophageal reflux disease) K21.9 Time Spent (min) 30
[2024-08-29] MEDS: remdesivir 100 MG in sodium chloride 0.9% (100 ml) 80 ML IV (11:19)
[2024-08-29 11:30] LABS: Glucose Point of Care 181 mg/dL (70-110)
[2024-08-29] MEDS: lanolin oint 7 gm 1 APPLIC TOPICAL ×3 (11:30→16:36)
--- NOTE | 2024-08-29 12:46 | PC.NURSE ---
Heart rhythm: 7/8 beat run of SVT noted. Self converted back to Sinus rhythm.
--- NOTE | 2024-08-29 14:00 | PC.NURSE ---
Lucita Landon and her family at bedside to visit. Will be back later after picking other sister up at airport this evening.
[2024-08-29] MEDS: sodium chloride 0.9% 1,000 ML 70 ML IV (14:30)
[2024-08-29] MEDS: morphine 4 mg/mL SDV 1 mL 2 MG IVP (16:36)
--- NOTE | 2024-08-29 18:00 | PC.NURSE ---
Repositioned, changed linens underneath pt and provided Catheter care. Pt became more tachypneic and O2 sats decreased to 795. Elevated HOB back up to 45 degrees> Pt slowly recovered, now at 95% and resp. 29.
--- NOTE | 2024-08-29 18:12 | PC.NURSE ---
Shift summary: Pt remains resting in bed throughout shift. She will open her eyes and look at staff when spoken too. She has not verbalized any words today. not even to yes/no questions. She has smiled twice at staff today. She did nod yes to having pain earlier this evening. She has no verbalized or nodded when asked if pain relieved, just smiled. She has spent the majority of the shift resting with her eyes closed. The only efforts at movement was holding her hand out for Remote and crossing her ankles. Her lungs sounds are diminished. They change from coarse crackles, exp. wheezing or briefly clear. She has remains tachypneic all shift. Her respirations have been 26 -49, usually around 30. The higher respirations occur when she is stimulated and/or repositioned. Her O2 sat would only decreased upon repositioning, the latest episode being the lowest sat. Urine output of 350 ml clear yellow urine noted. NO BM this shift.
--- NOTE | 2024-08-29 18:38 | PC.NURSE ---
Heart rhythm: Pt had another run of SVT. 9 beats. Converted back to sinus. Dr Brink notified via secure messaging. Asymptomatic.
[2024-08-30] VITALS (28 sets, daily range): BP systolic 94–138; BP diastolic 54–71; PULSE 62–107; RESP 17–37; TEMP 36.4–36.8; O2SAT 39–99
[2024-08-30] MEDS: ipratropium-albuterol 3 mL Neb INHALATION ×3 (00:16→11:45)
[2024-08-30] MEDS: cefTRIAXone 1,000 mg SDV 1000 MG IVP (00:32)
--- NOTE | 2024-08-30 01:37 | PC.NURSE ---
Patient's daughters, Barbi and Eri came to bedside and discussed that they have decided to change code status to AND. They do not want intubation or cpr.
[2024-08-30] MEDS: AZITHROMYCIN ADD-Vantage 500 MG in 0.9% NaCl ADD-Vantage 250 ML 250 MG IV (03:12)
[2024-08-30] MEDS: enoxaparin 40 mg/0.4 mL Syringe SUBCUT (03:12)
[2024-08-30 04:33] LABS: Hematocrit 25.6 % (36-47); Lymphocytes # 0.2 10^3/uL (0.8-4.8); Lymphocytes % 4.6 %; Mean Corpuscular Hemoglobin 34.2 pg (27-33); Mean Corpuscular Volume 106.7 fl (85-98); Mean Platelet Volume 9.3 fL (7.4-10.4); Monocytes # 0.4 10^3/uL (0.2-0.9); Monocytes % 6.8 %; Neutrophils # 4.33 10^3/uL (1.8-7.7); Neutrophils % 83.6 %; Nucleated Red Blood Cells % 0.8 %; Platelet Count 142 10^3/cmm (157-399); Red Cell Distribution Width 21.5 % (12.1-15.1); White Blood Count 5.18 10^3/uL (3.29-11.43)
[2024-08-30 04:53] LABS: Anion Gap 14.7 (5-19); Blood Urea Nitrogen 29 mg/dL (8-23); Calcium 6.6 mg/dL (8.5-10.5); Carbon Dioxide 18 mmol/L (22-29); Chloride 114 mmol/L (98-107); Creatinine Clr Calc Pharmacy 44.7271; Glucose 172 mg/dL (65-115); Osmolality Calculated 306 mOsm/kg (285-295); Potassium 3.7 mmol/L (3.5-5.1); Sodium 143 mmol/L (136-145)
[2024-08-30 05:03] LABS: Vitamin B12 1812 pg/mL (232-1245)
[2024-08-30] MEDS: sodium chloride 0.9% 1,000 ML 70 ML IV (05:20)
[2024-08-30] MEDS: dexamethasone 10 mg/mL INJ 6 MG IVP (08:50)
[2024-08-30] MEDS: lidocaine 1% 5 ML in potassium chloride premix 100 ML 26.25 ML IV (08:51)
--- NOTE | 2024-08-30 09:17 | P.PN_ITS ---
Subjective 2 Subjective: Patient is now not verbally responsive. She does shake her head yes or no appropriately to some questions. She is on 100% high flow nasal cannula. Medications: Reviewed: Yes Vitals/I&O/Wt Last Vital Signs Temp 98.3 F 08/30/24 06:02 Pulse 67 08/30/24 06:00 Resp 25 H 08/30/24 06:00 BP 129/63 08/30/24 06:00 Pulse Ox 90 08/30/24 05:00 O2 Del Method Heated High Flow 08/30/24 03:30 O2 Flow Rate 40 08/30/24 03:30 FiO2 60 08/30/24 03:30 08/29/24 08/30/24 08/30/24 22:59 06:59 14:59 Intake Total 1250 / 2365 Output Total 350 / 350 250 / 600 Balance -350 / 765 1000 / 1765 Weight last 48 hrs Weight 125 lb 6.4 oz Weight 123 lb 6.2 oz Physical Exam 2 Narrative: GENERAL: Patient appears to be weak, not verbally responsive NECK: No jugular vein distension. HEART: Regular S1 and S2. No murmur, rub or gallop. LUNGS: Right lung diminished throughout, left lung with air movement but inspiratory wheezes throughout EXTREMITIES: Lower extremities with no dedema bilaterally. Urinary Catheter Management: Laureano: Cath Placed During This Visit: yes Reason for Continuing Indwelling Catheter: Accurate Measurement of Urinary Output in Critically Ill Patients Urinary Catheter Date of Insertion: 08/28/24 Urinary Catheter Time of Insertion: 10:20 Data 08/30/24 04:03 08/30/24 04:03 Micro: Microbiology 08/28/24 06:00 Blood Culture - Preliminary Blood NEGATIVE TO DATE A&P Assessment and plan (1) Elevated troponin: (2) Elevated brain natriuretic peptide (BNP) level: (3) Breast cancer: Qualifiers: Breast location: unspecified site of breast Estrogen receptor status: u nspecified Laterality: unspecified laterality (4) Acute hypoxic respiratory failure: (5) Pneumonia due to COVID-19 virus: (6) Community acquired pneumonia: Plan Patient has COVID-pneumonia. She had elevated initial troponin with mild increase at 6 hours. This is likely secondary to demand ischemia. Requiring 1005 high flow nasal cannula. She has declined from a respiratory standpoint. If patient recovers, we will get a stress test. Her condition is guarded. At this time, will continue to monitor for acute EKG changes. Attestations 2 Medical Necessity Statement*: Deferred to primary. Coding Level of Care Code Acute Code for Chg Fwd Diagnoses Elevated troponin R79.89 Elevated brain natriuretic peptide (BNP) level R79.89 Breast cancer C50.919 Breast location: unspecified site of breast Estrogen receptor status: unspecified Laterality: unspecified laterality Acute hypoxic respiratory failure J96.01 Pneumonia due to COVID-19 virus U07.1; J12.82 Community acquired pneumonia J18.9
[2024-08-30] MEDS: LORazepam 2 mg/mL INJ 1 mL 0.5 MG IM (12:00)
[2024-08-30] MEDS: morphine 4 mg/mL SDV 1 mL IVP ×3 (12:20→19:54)
[2024-08-30] MEDS: HYDROmorphone 1 mg/mL INJ 1 mL 0.5 MG IVP (12:26)
[2024-08-30] MEDS: LORazepam 2 mg/mL INJ 1 mL IVP (12:26)
--- NOTE | 2024-08-30 14:37 | PC.SOCIAL ---
IMM UPDATED IMM dated and initialed, copy given to patient and copy placed in chart.
--- NOTE | 2024-08-30 18:17 | P.PN_ITS ---
Subjective 2 Subjective: Seen her at bedside this morning. Patient has been nonverbal and not responding to questions. Seems to be depressed. As per the bedside nurse every time she has been moved for care, she becomes tachycardic and tachypneic with oxygen saturation dropping to as low as 55%. She still continues to be on high flow nasal cannula. Medications: Reviewed: Yes Vitals/I&O/Wt Last Vital Signs Temp 97.6 F 08/30/24 08:00 Pulse 83 08/30/24 16:00 Resp 17 08/30/24 16:00 BP 121/66 08/30/24 16:00 Pulse Ox 54 L 08/30/24 16:00 O2 Del Method Heated High Flow 08/30/24 11:45 O2 Flow Rate 40 08/30/24 11:45 FiO2 100 08/30/24 11:45 08/30/24 08/30/24 08/30/24 06:59 14:59 22:59 Intake Total 1250 / 2365 698.833 / 698.833 Output Total 250 / 600 Balance 1000 / 1765 698.833 / 698.833 Weight last 48 hrs Weight 56.88 kg Weight 55.968 kg Physical Exam 2 Narrative: GENERAL: Patient appears to be weak, not verbally responsive NECK: No jugular vein distension. HEART: Regular S1 and S2. No murmur, rub or gallop. LUNGS: Right lung diminished throughout, left lung with air movement but inspiratory wheezes throughout EXTREMITIES: Lower extremities with no dedema bilaterally. Urinary Catheter Management: Laureano: Cath Placed During This Visit: yes Reason for Continuing Indwelling Catheter: Accurate Measurement of Urinary Output in Critically Ill Patients Urinary Catheter Date of Insertion: 08/28/24 Urinary Catheter Time of Insertion: 10:20 Data 08/30/24 04:03 08/30/24 04:03 A&P Assessment and plan (1) Acute respiratory failure with hypoxemia: Acute on chronic hypoxic respiratory failure requiring noninvasive mechanical ventilation Treat underlying pneumonia and COVID-19 Start scheduled breathing treatments Encourage pulmonary toilet (2) Pneumonia due to COVID-19 virus: Take appropriate precautions Start dexamethasone 6 mg IV daily Breathing treatments (3) Community acquired pneumonia: Check procalcitonin and CRP Bacterial antigens Start ceftriaxone and azithromycin Sputum culture (4) Acute metabolic encephalopathy: Treat underlying infection Avoid sedating medications (5) Elevated troponin: Delta troponin unremarkable EKG reviewed Obtain echo (6) Elevated brain natriuretic peptide (BNP) level: Check echocardiogram Strict I&Os Daily weights (7) Transaminitis: Trend (8) Breast cancer: Breast cancer w/ metastasis to bone [place] [facility] [place] Qualifiers: Breast location: unspecified site of breast Estrogen receptor status: u nspecified Laterality: unspecified laterality (9) GERD (gastroesophageal reflux disease): Plan continue home PPI after list is updated Plan DVT prophylaxis: Lovenox 08/28/24 Yessenia George is a 78 year old female with past medical history significant for rheumatoid arthritis, metastatic breast cancer, radiation-induced angiosarcoma of breast, anemia, chronic hypoxic respiratory failure, multiple other comorbidities who presents emergency department with shortness of breath and respiratory distress. Upon evaluation, patient is in a lethargic state. Currently on Iv dexamethasone, ceftriaxone and azithromycin. Elevated troponins likely secondary to demand ischemia, will R/o ACS need cardiology eval, f/up ECHO Will add IV remdesivir 100mg daily for 5 days. Continue high flow o2 to keep saturation more than 90%. Unable to tolerate BiPAP due to nasal fractures Family updated, explained in details and counseled about plan of care. Continue to monitor in ICU. 08/29/24 Hemodynamically stable for now, continue current management. Follow-up cardiology for further recommendations. 2D echo reviewed, showed EF of 55 to 60%, ascending aortic diameter 3.5 cm Hemoglobin trending down to 8.9, check vitamin B12 in a.m. Continue to monitor in ICU. 08/30/24 Patient was stable until this morning, when suddenly she became tachycardic, tachypneic with respiratory rate of 50/min, tachycardic in 140s and oxygen saturation in 50s. She was initially opening her eyes to verbal stimuli but then became nonresponsive to painful stimuli and sternal rub. She was given IV Ativan 1 mg with no relief hence family called and at bedside. Explained in details about the current condition, patient being in severe respiratory distress. Family had decided DNR and/DNI last night and now opting for comfort care. Patient switched to nasal cannula and was given IV Ativan and morphine/Dilaudid for comfort care. Currently her oxygen saturations are in 30 to 50s. Prognosis guarded. Will continue with comfort care. Attestations 2 Medical Necessity Statement*: Patient on comfort care measures. Time Spent in Patient Care: 120 minutes Coding Level of Care Code Critical Care >/= 30 minutes Diagnoses Acute respiratory failure with hypoxemia J96.01 Pneumonia due to COVID-19 virus U07.1; J12.82 Community acquired pneumonia J18.9 Acute metabolic encephalopathy G93.41 Elevated troponin R79.89 Elevated brain natriuretic peptide (BNP) level R79.89 Transaminitis R74.01 Breast cancer C50.919 Breast location: unspecified site of breast Estrogen receptor status: unspecified Laterality: unspecified laterality GERD (gastroesophageal reflux disease) K21.9 Time Spent (min) 120
--- NOTE | 2024-08-30 19:47 | PC.NURSE ---
Transfer Contacted [facility] to give report on patient. Discovered with [facility] nurse that no transfer order was placed. Called Dr Westbrook to find out if order was going to be put in. Dr Westbrook instructed to move patient anyway with no order. [facility] nurse Hector made aware and agreeable to transfer.
--- NOTE | 2024-08-30 20:31 | PC.NURSE ---
Addendum entered by DARYL Shine 08/30/24 20:38: Daughter Eri notified of transfer. Original Note: Transfer to [facility] day surgery center Transferred patient to [facility]2 on medr on 15 L oxymask. [facility] Patient's home medications from Pyxis and belongings brought to room. Family notified of transfer.
[2024-08-31 00:31] VITALS: BP 94/61; PULSE 83; RESP 21; TEMP 36.6
[2024-08-31 04:19] VITALS: BP 101/57; BP 94/61; PULSE 83; PULSE 86; RESP 12; RESP 21; TEMP 36.6; TEMP 37.3; O2SAT 62
[2024-08-31 04:26] VITALS: BMI 25.0
[2024-08-31 05:57] VITALS: RESP 22
[2024-08-31] MEDS: morphine 4 mg/mL SDV 1 mL IVP ×2 (05:57→13:35)
[2024-08-31 07:37] VITALS: BP 109/53; PULSE 86; RESP 24; TEMP 37.1; O2SAT 58
[2024-08-31 13:19] VITALS: RESP 24
[2024-08-31] MEDS: HYDROmorphone 1 mg/mL INJ 1 mL 0.5 MG IVP (13:19)
[2024-08-31] MEDS: LORazepam 2 mg/mL INJ 1 mL IVP (13:20)
[2024-08-31 13:35] VITALS: RESP 26
--- NOTE | 2024-08-31 14:18 | P.PN_ITS ---
Vitals/I&O/Wt Last Vital Signs Temp 98.7 F 08/31/24 07:37 Pulse 86 08/31/24 07:37 Resp 26 H 08/31/24 13:35 BP 109/53 08/31/24 07:37 Pulse Ox 58 L 08/31/24 07:37 O2 Del Method Aerosol Mask 08/31/24 07:37 O2 Flow Rate 7 08/31/24 04:19 FiO2 100 08/30/24 11:45 08/30/24 08/31/24 08/31/24 22:59 06:59 14:59 Intake Total 0 / 698.833 0 / 698.833 Output Total 600 / 600 Balance -600 / 98.833 0 / 98.833 Weight last 48 hrs Weight 58.06 kg Weight 56.88 kg Physical Exam 2 Urinary Catheter Management: Laureano: Cath Placed During This Visit: yes Reason for Continuing Indwelling Catheter: Hospice/Comfort/Palliative Care Urinary Catheter Date of Insertion: 08/28/24 Urinary Catheter Time of Insertion: 10:20 Data 08/30/24 04:03 08/30/24 04:03 Coding Level of Care Code Acute Code for Chg Eliz
--- NOTE | 2024-08-31 14:53 | PC.NURSE ---
Ying RN states family requests all O2 off.
--- NOTE | 2024-08-31 15:02 | PC.NURSE ---
This nurse notified that pt has passed at 1458. Eri states she will come back. Pt passed at 1458, pupils fixed and dilated, absent of HR and respirations.
--- NOTE | 2024-08-31 15:05 | PM.DDS ---
Discharge Providers DDS Date of Admission: 08/28/24 02:15 Date Summary Completed: 08/31/24 Attending Provider at Admission: Placido Teran MD Time of : 14:58 Attending Provider at Discharge: Iris Brink MD Consults: Cardiology Primary Care Provider: DO JUAN ALBERTO Stapleton Diagnoses Hospital Diagnoses (1) Acute respiratory failure with hypoxemia: (2) Pneumonia due to COVID-19 virus: (3) Community acquired pneumonia: (4) Acute metabolic encephalopathy: (5) Elevated troponin: (6) Elevated brain natriuretic peptide (BNP) level: (7) Transaminitis: (8) Breast cancer: Qualifiers: Breast location: unspecified site of breast Estrogen receptor status: unspecified Laterality: unspecified laterality (9) GERD (gastroesophageal reflux disease): Reason for Visit Reason for Visit SOB Brief History: 08/28/24 Yessenia George is a 78 year old female with past medical history significant for rheumatoid arthritis, metastatic breast cancer, radiation-induced angiosarcoma of breast, anemia, chronic hypoxic respiratory failure, multiple other comorbidities who presents emergency department with shortness of breath and respiratory distress. Upon evaluation, patient is in a lethargic state. Currently on Iv dexamethasone, ceftriaxone and azithromycin. Elevated troponins likely secondary to demand ischemia, will R/o ACS need cardiology eval, f/up ECHO Will add IV remdesivir 100mg daily for 5 days. Continue high flow o2 to keep saturation more than 90%. Unable to tolerate BiPAP due to nasal fractures Family updated, explained in details and counseled about plan of care. Continue to monitor in ICU. 08/29/24 Hemodynamically stable for now, continue current management. Follow-up cardiology for further recommendations. 2D echo reviewed, showed EF of 55 to 60%, ascending aortic diameter 3.5 cm Hemoglobin trending down to 8.9, check vitamin B12 in a.m. Continue to monitor in ICU. 08/30/24 Patient was stable until this morning, when suddenly she became tachycardic, tachypneic with respiratory rate of 50/min, tachycardic in 140s and oxygen saturation in 50s. She was initially opening her eyes to verbal stimuli but then became nonresponsive to painful stimuli and sternal rub. She was given IV Ativan 1 mg with no relief hence family called and at bedside. Explained in details about the current condition, patient being in severe respiratory distress. Family had decided DNR and/DNI last night and now opting for comfort care. Patient switched to nasal cannula and was given IV Ativan and morphine/Dilaudid for comfort care. Currently her oxygen saturations are in 30 to 50s. Prognosis guarded. Will continue with comfort care. Summary Date and Time of Date of : 08/31/24 Time of : 14:58 Summary Summary: Patient was in severe respiratory distress secondary to acute hypoxic respiratory failure secondary to COVID-19 infection and pulmonary fibrosis. She was DNR/DNI but continued to be in respiratory distress with respiratory rate of 40s and oxygen saturation in mid 60s. Family explained in details and counseled about prognosis and plan of care, family opted for comfort care. She continued to be hypoxic today and was pronounced at 1458. Additional Data Confirmation of as documented by pronouncing clinician: no pulse, no respirations, no heart sounds and pupils fixed and dilated Family: at bedside Additional persons at bedside: other Was code activated?: No Autopsy requested?: No Hospice patient?: No Discharge Plan Discharge Patient Disposition: Condition: Prescriptions: No Action acetaminophen [Tylenol Arthritis Pain] 650 mg tablet extended release 650 mg PO Q8H PRN (Reason: Pain) Salonpas 3.1-10-6 % adhesive patch,medicated 1 patch topical DAILY PRN (Reason: pain) Rx Instructions: may leave on area for up to 8 hrs fluoxetine [Prozac] 40 mg capsule 40 mg PO DAILY pantoprazole [Protonix] 40 mg tablet,delayed release (DR/EC) 40 mg PO BID 30 Days Qty: 60 11RF ferrous sulfate 324 mg (65 mg iron) tablet,delayed release (DR/EC) 324 mg PO DAILY ipratropium bromide 42 mcg (0.06 %) spray,non-aerosol 2 spray intranasal DAILY Rx Instructions: administer into each nostril folic acid 1 mg tablet 1 mg PO 1XD prednisone 5 mg tablet 5 mg PO DIRECTED Qty: 10 0RF Rx Instructions: take 1 tab twice a day for 2 days then take 1 tab daily- 3 pills left Verzenio 100 mg tablet 100 mg PO BID Qty: 60 0RF calcium carbonate-vitamin D3 [Calcium + D] 600 mg-5 mcg (200 unit) Tablet 1 tab PO TID Discharge Orders: Discharge Order (Routine); Ordered 08/31/24 Ordered By: Iris Brink Referrals: Carolyn Pires DO [Primary Care Provider] - Patient Instructions: Opioid Safety DS Attestations Time Spent in /Discharge Care*: less than 30 min Quality - AMI: AMI present?: No Quality - Stroke: CVA present?: No Quality - VTE: VTE present?: No Coding Level of Care Code Acute Code for Chg Fwd Diagnoses Acute respiratory failure with hypoxemia J96.01 Pneumonia due to COVID-19 virus U07.1; J12.82 Community acquired pneumonia J18.9 Acute metabolic encephalopathy G93.41 Elevated troponin R79.89 Elevated brain natriuretic peptide (BNP) level R79.89 Transaminitis R74.01 Breast cancer C50.919 Breast location: unspecified site of breast Estrogen receptor status: unspecified Laterality: unspecified laterality GERD (gastroesophageal reflux disease) K21.9 Time Spent (min) 15
--- NOTE | 2024-08-31 21:33 | PC.NURSE ---
Soraya Time: 2134
--- NOTE | 2024-09-01 02:09 | PC.NURSE ---
Per dayshift HS: MTS and Saving Site released. Family undecided on home. Ref# [id number]
== END 2024-08-31 21:35 | disposition expired | DRG 177 ==
LOC: ER 08-28 02:23 → ICU 08-28 03:03 → MEDSURG 08-30 20:11
PROVIDERS: Admitting Provider Internal Medicine; Emergency Provider Emergency Medicine; PCP Family Medicine; Visit Provider Internal Medicine
DX: U07.1 COVID-19 (principal); G93.41 Metabolic encephalopathy; J12.82 Pneumonia due to coronavirus disease 2019; J96.21 Acute and chronic respiratory failure with hypoxia; C79.51 Secondary malignant neoplasm of bone; I24.89 Other forms of acute ischemic heart disease; M06.9 Rheumatoid arthritis, unspecified; C50.911 Malignant neoplasm of unspecified site of right female breast; Z91.041 Radiographic dye allergy status; M79.7 Fibromyalgia; F32.A Depression, unspecified; D64.9 Anemia, unspecified; Z90.710 Acquired absence of both cervix and uterus; Z90.722 Acquired absence of ovaries, bilateral; Z90.11 Acquired absence of right breast and nipple; J84.10 Pulmonary fibrosis, unspecified; Z51.5 Encounter for palliative care; Z66 Do not resuscitate; R00.0 Tachycardia, unspecified; K21.9 Gastro-esophageal reflux disease without esophagitis; Z87.891 Personal history of nicotine dependence; Z82.49 Family history of ischemic heart disease and other diseases of the circulatory system; Z80.9 Family history of malignant neoplasm, unspecified; Z83.2 Family history of diseases of the blood and blood-forming organs and certain disorders involving the immune mechanism
CPT/HCPCS: 36415; 36416; 36600; 51702; 70450; 71045; 71275; 80048; 80053; 82607; 82805; 82962; 83605; 83735; 83880; 84100; 84145; 84484; 85025; 85610; 86140; 86403; 87040; 93005; 93306; 94640; 94660; 96365; 96367; 96372; 96375; 96376; 99291; J0248; J0456; J0696; J1100; J1171; J1200; J1650; J2060; J2270; J2919; J3480; J7030; J7050; J7626

== ENCOUNTER 2024-08-30 08:45 | Oncology outpatient (recurring) (ONCR) | payer MEDICARE, SELFPAY ==
[2024-08-19 14:07] LABS: Basophils % 0.9 %; Eosinophils % 1.3 %; Lymphocytes # 0.9 10^3/uL (0.8-4.8); Lymphocytes % 37.6 %; Mean Corpuscular HGB Conc 32.8 g/dL (30-55); Mean Corpuscular Hemoglobin 34.3 pg (27-33); Mean Corpuscular Volume 104.7 fl (85-98); Mean Platelet Volume 8.3 fL (7.4-10.4); Monocytes # 0.4 10^3/uL (0.2-0.9); Monocytes % 17.9 %; Neutrophils % 41.9 %; Nucleated Red Blood Cells % 1.7 %; Platelet Count 219 10^3/cmm (157-399); Red Blood Count 2.77 10^6/uL (3.85-5.65); Red Cell Distribution Width 21.7 % (12.1-15.1); White Blood Count 2.29 10^3/uL (3.29-11.43)
[2024-08-19 14:39] LABS: Alanine Aminotransferase 16 U/L (0-33); Albumin Level 3.6 g/dL (3.5-5.2); Alkaline Phosphatase 65 U/L (35-105); Anion Gap 15.3 (5-19); Aspartate Amino Transferase 38 U/L (0-32); Blood Urea Nitrogen 15 mg/dL (8-23); CA 15-3 166.5 U/mL (0-25); Carbon Dioxide 22 mmol/L (22-29); Chloride 99 mmol/L (98-107); Creatinine Clr Calc Pharmacy 26.6986; Globulin 2.2 g/dL (1.3-4.6); Glucose 91 mg/dL (65-115); Osmolality Calculated 274 mOsm/kg (285-295); Potassium 4.3 mmol/L (3.5-5.1); Sodium 132 mmol/L (136-145); Total Bilirubin 0.4 mg/dL (0.15-1.2); Total Protein 5.8 g/dL (6.6-8.7)
[2024-08-19 14:45] LABS: Neutrophils # 0.96 10^3/uL (1.8-7.7)
[2024-08-19] MEDS: fulvestrant 250 mg/5 mL Syringe 500 MG IM (15:42)
== END 2024-09-04 23:59 | disposition home or self-care (01) ==
LOC: ONCMED 15:50 → RAD 08-31 00:01 → ONCMED 08-31 10:07
PROVIDERS: PCP Family Medicine; Visit Provider Internal Medicine Hematology & Oncology
DX: Z53.9 Procedure and treatment not carried out, unspecified reason
CPT/HCPCS: 36415; 80053; 85025; 86300; 96402; 99214; J9395